=== PATIENT | male | born 1985 | race Caucasian/White ===

== ENCOUNTER 2021-02-06 04:20 | Inpatient (IN) | payer BC ==
[~2021-02-06] VITALS: Ht 172.7 cm; Wt 134.2 kg
[2021-02-06 05:15] LABS: BASOPHILS PERCENT AUTO 0 % (0-2); EOSINOPHILS PERCENT AUTO 0 % (0-6); Hematocrit 41.9 % (37.0-53.0); Hemoglobin 14.4 g/dL (13.5-17.5); IMMATURE GRAN ABSOLUTE AUTO 0.02 K/mm3 (0.00-0.10); IMMATURE GRAN PERCENT AUTO 0 % (0-1); LYMPHOCYTES ABSOLUTE AUTO 0.66 K/mm3 (0.84-5.20); LYMPHOCYTES PERCENT AUTO 11 % (21-46); MONOCYTES PERCENT AUTO 7 % (4-13); Mean Corpuscular HGB 30.9 pg (26.0-34.0); Mean Corpuscular HGB Conc 34.4 g/dL (31.5-36.5); Mean Corpuscular Volume 90 fL (80-100); Mean Platelet Volume 9.2 fL (9.1-12.4); NEUTROPHILS ABSOLUTE AUTO 4.84 K/mm3 (1.96-9.15); NEUTROPHILS PERCENT AUTO 82 % (41-73); Platelet Count 209 K/mm3 (150-400); RDW Coefficient Variation 12.9 % (11.7-14.2); RDW Standard Deviation 42.6 fL (35.1-46.3); Red Blood Cell Count 4.66 M/mm3 (4.30-5.90); White Blood Cell Count 5.92 K/mm3 (4.00-11.30)
[2021-02-06] MEDS ORDERED: Ventolin/Prove6.7 GM INH (05:17)
[2021-02-06] MEDS ORDERED: Ventolin/Prove6.7 GM (05:17)
[2021-02-06] MEDS ORDERED: AZIT250 PO (05:19)
[2021-02-06] MEDS ORDERED: IVERMECTIN3 MG PO (05:19)
[2021-02-06] MEDS ORDERED: SYMBICORT 16010.2 GM INH (05:19)
[2021-02-06 05:32] LABS: Alanine Aminotransfer (ALT/SGP 80 U/L (12-78); Albumin, Blood 3.6 g/dL (3.4-5.0); Albumin/Globulin Ratio 0.8 (0.8-1.8); Alk Phos 61 U/L (50-136); Anion Gap 6 mmol/L (6-16); Aspartate Aminotrans (AST/SGOT 73 U/L (12-37); Bilirubin, Total 0.4 mg/dL (0.1-1.0); Blood Urea Nitrogen 12 mg/dL (8-24); Bun/Creatinine Ratio 19.4 (12.0-20.0); CO2, Blood 27 mmol/L (21-32); Calcium, Blood 8.9 mg/dL (8.5-10.1); Chloride, Blood 105 mmol/L (98-108); Creatinine, Blood 0.62 mg/dL (0.60-1.20); Globulin, Blood 4.6 g/dL (2.2-4.0); Glomerular Filtration Rate >60 (60-); Glucose, Blood 159 mg/dL (70-99); Potassium, Blood 4.1 mmol/L (3.5-5.5); Sodium, Blood 138 mmol/L (136-145); Total Protein, Blood 8.2 g/dL (6.4-8.2)
[2021-02-06 06:25] LABS: SARS-Cov-2 (COVID-19) PCR, MMC POSITIVE (NEGATIVE)
--- NOTE | 2021-02-06 18:28 | NUR ---
PATIENT ALERT AND ORIENTED X4. INTIALLY ON NRB AT 15L SATING LOW 90'S. SWITCHED TO AIRVO AT 50L AND 75% SATING LOW-MID 90'S. DIMINISHED LUNG SOUNDS. OCCASIONAL COUGH. TELE SHOWING SINUS WITH HR 80'S. DENIES CHEST PAIN/PRESSURE. VITAL SIGNS STABLE. BOWEL TONES PRESENT. USING URINAL AT BEDSIDE. DISTENDED ABDOMEN, PATIENT STATES NORMAL. EATING DINNER AT THIS TIME. CALL LIGHT IN REACH. DENIES PAIN. UP IN RECLINER. WILL CONTINUE TO MONITOR AND REPORT OFF.
--- NOTE | 2021-02-07 02:42 | NUR ---
O2 PT REPORTS BEING A MOUTH BREATHER AT REST, DISCUSSED ALTERNATIVE OPTIONS TO FACILITATE THIS WITH RT, PER THEIR SUGGESTION, CHANGED PT FROM AIVO TO NRB WHILE AT REST. PT WENT FROM 82% TO 87/91% ON NRB @ 15L. ENCOURAGE TCDB, ENC REPOSITIONING AND PRONING. WILL CTM.
[2021-02-07 05:33] LABS: BASOPHILS ABSOLUTE AUTO 0.01 K/mm3 (0.00-0.23); BASOPHILS PERCENT AUTO 0 % (0-2); EOSINOPHILS PERCENT AUTO 0 % (0-6); Hematocrit 40.4 % (37.0-53.0); Hemoglobin 13.5 g/dL (13.5-17.5); IMMATURE GRAN ABSOLUTE AUTO 0.09 K/mm3 (0.00-0.10); IMMATURE GRAN PERCENT AUTO 1 % (0-1); LYMPHOCYTES ABSOLUTE AUTO 1.12 K/mm3 (0.84-5.20); LYMPHOCYTES PERCENT AUTO 10 % (21-46); MONOCYTES ABSOLUTE AUTO 0.97 K/mm3 (0.16-1.47); MONOCYTES PERCENT AUTO 9 % (4-13); Mean Corpuscular HGB Conc 33.4 g/dL (31.5-36.5); Mean Corpuscular Volume 93 fL (80-100); Mean Platelet Volume 9.3 fL (9.1-12.4); NEUTROPHILS ABSOLUTE AUTO 9.07 K/mm3 (1.96-9.15); NEUTROPHILS PERCENT AUTO 81 % (41-73); Platelet Count 264 K/mm3 (150-400); Red Blood Cell Count 4.36 M/mm3 (4.30-5.90); White Blood Cell Count 11.26 K/mm3 (4.00-11.30)
[2021-02-07 05:46] LABS: D-Dimer, Quantitative 0.28 mg/L FEU (0.00-0.52); International Normalized Ratio 0.98; Prothrombin Time Results 10.6 Sec (9.7-11.5)
[2021-02-07 06:09] LABS: Alanine Aminotransfer (ALT/SGP 91 U/L (12-78); Albumin, Blood 3.2 g/dL (3.4-5.0); Albumin/Globulin Ratio 0.8 (0.8-1.8); Alk Phos 58 U/L (50-136); Anion Gap 6 mmol/L (6-16); Aspartate Aminotrans (AST/SGOT 96 U/L (12-37); Bilirubin, Total 0.7 mg/dL (0.1-1.0); Blood Urea Nitrogen 19 mg/dL (8-24); Bun/Creatinine Ratio 28.6 (12.0-20.0); CO2, Blood 28 mmol/L (21-32); Calcium, Blood 9.4 mg/dL (8.5-10.1); Chloride, Blood 105 mmol/L (98-108); Creatinine, Blood 0.67 mg/dL (0.60-1.20); Globulin, Blood 4.1 g/dL (2.2-4.0); Glomerular Filtration Rate >60 (60-); Glucose, Blood 119 mg/dL (70-99); Magnesium, Blood 2.4 mg/dL (1.6-2.4); Potassium, Blood 4.1 mmol/L (3.5-5.5); Sodium, Blood 139 mmol/L (136-145); Total Protein, Blood 7.3 g/dL (6.4-8.2)
--- NOTE | 2021-02-07 06:47 | NUR ---
SHIFT SUMMARY S/P COVID PNEUMONIA, A/O X4, VSS THOUGH SATS SLOWLY DECLINING T/O THE SHIFT FROM 89% TO 78% AROUND 0545 THIS MORNING, RT CHANGED PATIENT OVER TO BIPAP AND WE GOT HIM TO PRONE WHICH GOT SATS UP TO 94-96%. 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 PT DROPPED FROM 80% TO 70% WHEN STANDING UP TO VOID, PT EDUCATED AND ENCOURAGE TO STAY IN BED OR CALL FOR ASSISTANCE IF NEEDING TO STAND UP. SATS CAME BACK UP WHEN HE SAT DOWN. CURRENTLY DENIES SOB c BIPAP ON, SOME COARSE CRACKLES ON R SIDE THOUGH PT WAS LYING ON R SIDE MOST OF THE NIGHT UNTIL NOW. NO OTHER EVENTS THIS SHIFT. CALL LIGHT IN REACH, WILL CTM AND REPORT TO DAY RN.
--- NOTE | 2021-02-07 10:17 | NUR ---
PT ALERT AND ORIENTED X4. ON BIPAP THIS AM SETTINGS 12/9 AND 100%. SATING LOW 90'S. RESPIRATORY CARE IN TO SEE PATIENT THIS AM. TRANSFERRED TO AIRVO AT 60L AND 100% FOR 5 MIN WHILE EATING BREAKFAST AND PATIENT DESATED TO LOW 80'S. BACK ON BIPAP AT THIS TIME, UP IN RECLINER. MINIMAL COUGH, NOT PRODUCING MUCH SPUTUM. TELE SHOWING SINUS WITH HR 70-80'S. DENIES CHEST PAIN/PRESSURE. NEURO WNL. BOWEL TONES PRESENT. USING URINAL. NO BOWEL MOVEMENT THIS SHIFT. DENIES OVERALL PAIN. PHYSICAL THERAPY IN TO WORK WITH PATIENT. WILL CONTINUE TO MONITOR.
--- NOTE | 2021-02-07 14:16 | NUR ---
CALL PLACED TO FOR UPDATE. PATIENT NOT TOLERATING BIPAP BREAKS. ABLE TO QUICKLY MOVE MASK TO SIDE AND HAVE PATIENT TAKE SIPS OF WATER. ABLE TO DRINK A ENSURE AND WATER FOR LUNCH. NEW ORDER FOR NS. PATIENT UP IN RECLINER. MOTIVATED TO EXERCISE. WORKED WITH PT ON MOBILITY AND EXERCISES. BIPAP SETTINGS 05/21 AT 100% SATING 90-93%. WILL CONTINUE TO MONITOR.
--- NOTE | 2021-02-07 18:48 | NUR ---
SEE PREVIOUS NOTE. NO ACUTE CHANGES. PATIENT REMAINS ON BIPAP SETTINGS 05/21 AT 100% SATTING 89-94%. ABLE TO TAKE MASK OFF BRIEFLY FOR SIPS OF WATER AND DINNER. DESATED TO 85% WHEN EATING DINNER. FULL LIQUID DIET. PATIENT DOES NOT HAVE MUCH OF APPETITE. ANXIOUS AND NERVOUS ABOUT BEING ON BIPAP. AT HOME ALSO SICK WITH COVID. TELE REMAINS UNCHANGED. NO BOWEL MOVEMENT THIS SHIFT. NS AT 50ML/HR INFUSING AT THIS TIME. CALL LIGHT IN REACH. UP IN RECLINER. STANDING UP AND PREFORMING PHYSICAL THERAPY EXERCISES INTERMITTENTLY. PATIENT EXPRESSES DESIRE TO PRONE/LAY ON SIDE TONIGHT WHILE SLEEPING. WILL REPORT OFF TO ONCOMING RN.
[2021-02-08 05:25] LABS: BASOPHILS ABSOLUTE AUTO 0.05 K/mm3 (0.00-0.23); BASOPHILS PERCENT AUTO 1 % (0-2); EOSINOPHILS PERCENT AUTO 0 % (0-6); Hematocrit 42.4 % (37.0-53.0); Hemoglobin 13.8 g/dL (13.5-17.5); IMMATURE GRAN ABSOLUTE AUTO 0.19 K/mm3 (0.00-0.10); IMMATURE GRAN PERCENT AUTO 2 % (0-1); LYMPHOCYTES ABSOLUTE AUTO 1.22 K/mm3 (0.84-5.20); LYMPHOCYTES PERCENT AUTO 11 % (21-46); MONOCYTES ABSOLUTE AUTO 1.25 K/mm3 (0.16-1.47); MONOCYTES PERCENT AUTO 11 % (4-13); Mean Corpuscular HGB 30.7 pg (26.0-34.0); Mean Corpuscular HGB Conc 32.5 g/dL (31.5-36.5); Mean Corpuscular Volume 94 fL (80-100); Mean Platelet Volume 8.9 fL (9.1-12.4); NEUTROPHILS ABSOLUTE AUTO 8.24 K/mm3 (1.96-9.15); NEUTROPHILS PERCENT AUTO 75 % (41-73); Platelet Count 339 K/mm3 (150-400); RDW Coefficient Variation 13.2 % (11.7-14.2); RDW Standard Deviation 45.6 fL (35.1-46.3); Red Blood Cell Count 4.49 M/mm3 (4.30-5.90); White Blood Cell Count 10.95 K/mm3 (4.00-11.30)
[2021-02-08 05:41] LABS: D-Dimer, Quantitative 0.32 mg/L FEU (0.00-0.52); International Normalized Ratio 1.01; Prothrombin Time Results 10.9 Sec (9.7-11.5)
[2021-02-08 05:52] LABS: Alanine Aminotransfer (ALT/SGP 102 U/L (12-78); Albumin, Blood 3.3 g/dL (3.4-5.0); Albumin/Globulin Ratio 0.8 (0.8-1.8); Alk Phos 65 U/L (50-136); Anion Gap 6 mmol/L (6-16); Aspartate Aminotrans (AST/SGOT 84 U/L (12-37); Bilirubin, Total 0.6 mg/dL (0.1-1.0); Blood Urea Nitrogen 22 mg/dL (8-24); Bun/Creatinine Ratio 36.1 (12.0-20.0); CO2, Blood 27 mmol/L (21-32); Calcium, Blood 8.8 mg/dL (8.5-10.1); Chloride, Blood 105 mmol/L (98-108); Creatinine, Blood 0.61 mg/dL (0.60-1.20); Globulin, Blood 4.4 g/dL (2.2-4.0); Glomerular Filtration Rate >60 (60-); Glucose, Blood 121 mg/dL (70-99); Magnesium, Blood 2.7 mg/dL (1.6-2.4); Potassium, Blood 4.1 mmol/L (3.5-5.5); Sodium, Blood 138 mmol/L (136-145); Total Protein, Blood 7.7 g/dL (6.4-8.2); Troponin I <0.015 ng/mL (0.000-0.040)
--- NOTE | 2021-02-08 06:14 | NUR ---
SHIFT SUMMARY PT IS ALERT AND ORIENTED. VITALS ARE STABLE. ON BIPAP 26/04 FIO2 95-100% WITH SATS BETWEEN 85-91%. PT HAS BEEN PRONING T/O THE NIGHT. DENIES CHEST PAIN. DESATS WITH EXERTION. USING URINAL AT BEDSIDE. IV FLUIDS RUNNING PER EMAR. USING CALL LIGHT APPROPRIETLY. CALL LIGHT IS WITHIN REACH.
--- NOTE | 2021-02-08 11:27 | NUR ---
PT ALERT AND ORIENTED X4. TELE SHOWING SINUS WITH HR 60-70'S. DENIES CHEST PAIN/PRESSURE. VITAL SIGNS STABLE. NO SIGNS OF EDEMA. BOWEL TONES PRESENT. NO BM THIS AM. USING URINAL AT BEDSIDE. DISTENDED ABDOMEN, PER PATIENT NORMAL. LOW APPETITE, TOLERATING FULL LIQUID DIET. DENIES OVERALL PAIN. NEURO WNL, DENIES N/T. 1 PERSON STAND BY ASSIST. ON BIPAP THIS AM WITH SETTING 14/11 AT 95%, SATING 89-95%. TRANSITIONED TO AIRVO 65L AT 100% FOR BREAKFAST THIS AM. SATS RANGED FROM 87-89%. STAYED ON AIRVO FOR ONE HOUR. BIPAP BACK IN PLACE, PATIENT PRONING AT THIS TIME. PATIENT VERY MOTIVATED TO PRONE OR BE UP IN RECLINER THROUGHOUT DAY. LUNG SOUND DIMINISHED. OCCASIONAL COUGH WHEN DEEP BREATHING. PRONING AT THIS TIME. CALL LIGHT IN REACH.
--- NOTE | 2021-02-08 15:02 | NUR ---
PT ON CPAP PRESSURE 14 AT 70%O2. SATING MID 90'S. SITTING UPRIGHT IN RECLINER AT THIS TIME. PATIENT STANDING EVERY SO OFTEN AND PREFORMING PT EXERCISES. VITAL SIGNS STABLE. NO ACUTE CHANGES.
--- NOTE | 2021-02-08 18:34 | NUR ---
SEE PREVIOUS NOTES. PATIENT REMAINS ON CPAP. NO ACUTE CHANGES. SATING HIGH 90'S AT THIS TIME. BOWEL MOVEMENT THIS SHIFT. NO CHANGES IN TELE. UPDATE CALLED TO ANTHONY, PATIENT FATHER. WILL CONTINUE TO MONITOR AND REPORT OFF.
[2021-02-09 05:09] LABS: BASOPHILS ABSOLUTE AUTO 0.06 K/mm3 (0.00-0.23); BASOPHILS PERCENT AUTO 1 % (0-2); EOSINOPHILS PERCENT AUTO 0 % (0-6); Hematocrit 40.6 % (37.0-53.0); Hemoglobin 13.6 g/dL (13.5-17.5); IMMATURE GRAN ABSOLUTE AUTO 0.49 K/mm3 (0.00-0.10); IMMATURE GRAN PERCENT AUTO 4 % (0-1); LYMPHOCYTES ABSOLUTE AUTO 1.63 K/mm3 (0.84-5.20); LYMPHOCYTES PERCENT AUTO 15 % (21-46); MONOCYTES ABSOLUTE AUTO 0.97 K/mm3 (0.16-1.47); MONOCYTES PERCENT AUTO 9 % (4-13); Mean Corpuscular HGB 30.9 pg (26.0-34.0); Mean Corpuscular HGB Conc 33.5 g/dL (31.5-36.5); Mean Corpuscular Volume 92 fL (80-100); Mean Platelet Volume 8.7 fL (9.1-12.4); NEUTROPHILS ABSOLUTE AUTO 8.13 K/mm3 (1.96-9.15); NEUTROPHILS PERCENT AUTO 72 % (41-73); Platelet Count 372 K/mm3 (150-400); RDW Coefficient Variation 13.2 % (11.7-14.2); RDW Standard Deviation 45.1 fL (35.1-46.3); White Blood Cell Count 11.28 K/mm3 (4.00-11.30)
[2021-02-09 05:45] LABS: Alanine Aminotransfer (ALT/SGP 99 U/L (12-78); Albumin, Blood 3.1 g/dL (3.4-5.0); Albumin/Globulin Ratio 0.8 (0.8-1.8); Alk Phos 64 U/L (50-136); Anion Gap 7 mmol/L (6-16); Aspartate Aminotrans (AST/SGOT 65 U/L (12-37); Bilirubin, Total 0.6 mg/dL (0.1-1.0); Blood Urea Nitrogen 19 mg/dL (8-24); Bun/Creatinine Ratio 32.6 (12.0-20.0); CO2, Blood 26 mmol/L (21-32); Chloride, Blood 105 mmol/L (98-108); Creatinine, Blood 0.58 mg/dL (0.60-1.20); Globulin, Blood 3.9 g/dL (2.2-4.0); Glomerular Filtration Rate >60 (60-); Glucose, Blood 100 mg/dL (70-99); Sodium, Blood 138 mmol/L (136-145)
--- NOTE | 2021-02-09 06:11 | NUR ---
SHIFT SUMMARY PT RESTED THROUGH MOST OF NIGHT. ALERT AND ORIENTED, ABLE TO MAKE NEEDS KNOWN. COOPERATIVE WITH PLAN OF CARE. SATS >90% ON CPAP 14/70%. PRONES OFTEN AND, PRONED OVERNIGHT. TELE RUNNING NSR. NO C/O CHEST PAIN. VOIDING TO URINAL, NO BM. STAND BY ASSIST FROM CHAIR TO BED, PT TRANSFERS WELL. NO C/O PAIN. PT EAGER TO GET BETTER, COMPLIANT WITH PLAN OF CARE. VSS. CALL LIGHT WITHIN REACH, BED IN LOWEST POSITION. WILL CONTINUE TO MONITOR.
--- NOTE | 2021-02-09 08:45 | NUR ---
INITIAL ASSESSMENT: PATIENT IS AWAKE AND OOB TO THE CHAIR. PT IS ALERT AND OX4. DENIES PAIN,N/V, N/T AT THIS TIME. HRR. LS DIM T/O, BIOX 95% WITH THE C-PAP ON 14 MC H20 AND 80% FIO2. RT TO ROOM TO TRIAL PATIENT OFF THE C-PAP. HE WAS PLACED ON 65L HIGH FLOW FIO2 75%, OXYGEN SATURATIONS IN THE LOW 90S. PT IS TOLERATING IT WELL. BT+. PPP. OTHER VSS. AM MEDS GIVEN AT THIS TIME. PT DENIES OTHER NEEDS AT THIS TIME. PT IS EAGER TO LEARN AND PARTICIPATE IN PRONING NEEDED. NO OTHER NEEDS AT THIS TIME. CALL LIGHT IN REACH, WILL CONTINUE TO MONITOR.
--- NOTE | 2021-02-09 11:00 | NUR ---
ASSESSMENT UNCHANGED FROM EARLIER. VSS. DE [place]. PT CONTINUES TO BE OOB TO CHAIR. HE DENIES OTHER NEEDS AT THIS TIME. CALL LIGHT IN REACH. WILL CONTINUE TO MONITOR.
--- NOTE | 2021-02-09 15:50 | NUR ---
Pt was incontinent of small amount of loose brown stool, much to his stated surprise and chagrin. He used the bedside commode afterwards, spo2 dropped to 87% while he was still wearing the CPAP AT 65% during the activity. He needed to sit on the chair for a few minutes to recover his oxygen levels. Noted mottling of his abdomen, arms and legs. Spo2 recovered to 97% and he wanted privacy to change his underwear and put on clean pants. During this activity he sustained spo2 at least 89-91%, still all while wearing the cpap. He was encouraged to take breaks during activity in order to manage his oxygen levels at least at 90%.
--- NOTE | 2021-02-09 19:21 | NUR ---
PATIENT HAS DONE WELL THROUGH OUT THE DAY. HE IS A COVID POSITIVE PATIENT THAT WAS INITIALLY ON C-PAP SETTINGS 14 CM H2O WITH 70%FIO2, FIO2 WAS TITRATED DOWN TO 65% PT TOLERATING WELL OXYGEN SATURATIONS CURRENTLY 96%. PT HAS BEEN OOB ALL DAY. PT WAS ABLE TO TAKE BREAKS FROM THE BI-PAP DURING MEALS, HE WAS ON HIGH FLOW 65L FIO2 80%, OXYGEN SATURATIONS 88-94. NO ACUTE CHANGES THIS SHIFT. REPORT GIVEN TO NIXON MORENO RN.
--- NOTE | 2021-02-10 05:08 | NUR ---
shift summary pt rested well through night. alert and oriented, able to make needs known. cooperative with plan of care. sats >90% on cpap pressure setting 14, and 65% fio2. tele nsr at 61. pt anxious some about wanting to get better and do more to improve quicker. needs reassurance. proned all night during sleep. no skin issues. voids to urinal. no bm, needs more po intake probably. no c/o pain. vss. call light within reach, bed in lowest position. will continue to monitor.
--- NOTE | 2021-02-10 18:37 | NUR ---
SHIFT SUMMARY PT ALERT AND ORIENTED. SBA IN ROOM. HR STABLE. BP STABLE. OXYGEN SATURATION MAINTAINED ABOVE 90% ON CPAP AND AIRVO SETTINGS. CPAP AT 14 AND 65% FIO2 AND AIRVO AT 65 L AND 75% FIO2. PT DESATS WITH EXERTION. NO CP OR PRESSURE REPORTED. PT UP IN CHAIR T/O SHIFT SAYS HE WILL PRONE THIS EVENING. WILL CONT TO MONITOR UNTIL REPORT GIVEN TO NIGHTSHIFT RN.
[2021-02-11 05:26] LABS: BASOPHILS ABSOLUTE AUTO 0.09 K/mm3 (0.00-0.23); BASOPHILS PERCENT AUTO 1 % (0-2); EOSINOPHILS ABSOLUTE AUTO 0.05 K/mm3 (0.00-0.68); EOSINOPHILS PERCENT AUTO 0 % (0-6); Hemoglobin 13.8 g/dL (13.5-17.5); IMMATURE GRAN ABSOLUTE AUTO 0.64 K/mm3 (0.00-0.10); IMMATURE GRAN PERCENT AUTO 4 % (0-1); LYMPHOCYTES ABSOLUTE AUTO 1.87 K/mm3 (0.84-5.20); LYMPHOCYTES PERCENT AUTO 13 % (21-46); MONOCYTES ABSOLUTE AUTO 0.71 K/mm3 (0.16-1.47); MONOCYTES PERCENT AUTO 5 % (4-13); Mean Corpuscular HGB Conc 33.7 g/dL (31.5-36.5); Mean Corpuscular Volume 92 fL (80-100); Mean Platelet Volume 8.7 fL (9.1-12.4); NEUTROPHILS ABSOLUTE AUTO 11.56 K/mm3 (1.96-9.15); NEUTROPHILS PERCENT AUTO 78 % (41-73); Platelet Count 459 K/mm3 (150-400); RDW Coefficient Variation 13.1 % (11.7-14.2); RDW Standard Deviation 44.3 fL (35.1-46.3); Red Blood Cell Count 4.45 M/mm3 (4.30-5.90); White Blood Cell Count 14.92 K/mm3 (4.00-11.30)
[2021-02-11 05:49] LABS: Albumin, Blood 2.9 g/dL (3.4-5.0); Anion Gap 6 mmol/L (6-16); Blood Urea Nitrogen 20 mg/dL (8-24); Bun/Creatinine Ratio 30.8 (12.0-20.0); CO2, Blood 28 mmol/L (21-32); Calcium, Blood 8.8 mg/dL (8.5-10.1); Chloride, Blood 102 mmol/L (98-108); Creatinine, Blood 0.65 mg/dL (0.60-1.20); Glomerular Filtration Rate >60 (60-); Glucose, Blood 78 mg/dL (70-99); Phosphorus, Blood 3.2 mg/dL (2.5-4.9); Potassium, Blood 4.1 mmol/L (3.5-5.5); Sodium, Blood 136 mmol/L (136-145)
--- NOTE | 2021-02-11 06:26 | NUR ---
SHIFT SUMMARY NO ACUTE EVENTS THIS SHIFT. PT A+OX4. PT ON CPAP 14 70% FIO2 FOR NIGHT. O2 SATS MAINTAINED OVER 94%. HR NSR 70'S AND BP STABLE. PT SLEPT IN PRONE POSITION. PT COOPERATIVE TO CARE. WILL CONTINUE TO MONITOR UNTIL REPORT GIVEN TO DAYSHIFT RN
--- NOTE | 2021-02-11 10:58 | NUR ---
PT ALERT AND ORIENTED X4. TELE SHOWING SINUS WITH HR 70-80'S. DENIES CHEST PAIN/PRESSURE. VITAL SIGNS STABLE. NO SIGNS OF EDEMA. ON CPAP 14 AT 70%. SATING MID 90'S. ABLE TO TOLERATE AIRVO 65L AT 100% FOR MEALS SATING MID-HIGH 90'S. MINIMAL COUGH. UP IN RECLINER AT THIS TIME. BOWEL TONES PRSENT. USING URINAL/BSC. MOTIVATED TO PRONE AND PREFORM PT EXERCISES. CALL LIGHT IN REACH. DENIES NEEDS AT THIS TIME. DENIES OVERALL PAIN. WILL CONTINUE TO MONITOR.
--- NOTE | 2021-02-11 17:13 | NUR ---
PT CPAP SETTINGS 12 AND 65%. SATING LOW 90'S. WILL CONTINUE TO MONITOR.
--- NOTE | 2021-02-11 17:47 | NUR ---
SHIFT SUMMARY: PATIENT EATING DINNER AT THIS TIME. ON HF 65L AT 100% TO MAINTAIN SATS WHILE EATING. CPAP SETTINGS 12 AND 65%. WEARING CPAP WHEN NOT EATING. SITTING IN RECLINER OR PRONING IN BED. VERY MOTIVATED. CALL PLACED TO FOR UPDATE. VITAL SIGNS REMAIN STABLE. DENIES NEEDS/PAINS AT THIS TIME. WILL CONTINUE TO MONITOR AND REPORT OFF.
--- NOTE | 2021-02-11 20:17 | NUR ---
RECEIVED REPORT AND ASSUMED CARE OF PT. HE IS SITTING UP TO THE CHAIR, HIFLO @ 65L AND 95%, MAINTAINING SATS ABOVE 90%. HE DENIES ANY NEEDS AT THIS TIME. WCTM.
--- NOTE | 2021-02-12 05:05 | NUR ---
SHIFT SUMMARY: [place] IS A&OX4. VSS, NO ACUTE EVENTS OVERNIGHT. HE IS MAINTAINING O2 SATS ON CPAP @ 12 L @ 65% OR HIFLOW @ 65 L @ 95%. HE IS TOLERATING PO INTAKE WELL, SITTING UP AT THE CHAIR WHEN NOT PRONING IN BED, AND ABLE TO MAKE HIS NEEDS KNOWN. HE IS LYING IN BED WITH THE CALL LIGHT IN REACH. WILL REPORT TO DAY SHIFT RN.
[2021-02-12 06:46] LABS: BASOPHILS ABSOLUTE AUTO 0.09 K/mm3 (0.00-0.23); BASOPHILS PERCENT AUTO 1 % (0-2); EOSINOPHILS ABSOLUTE AUTO 0.17 K/mm3 (0.00-0.68); EOSINOPHILS PERCENT AUTO 1 % (0-6); Hematocrit 41.2 % (37.0-53.0); Hemoglobin 13.9 g/dL (13.5-17.5); IMMATURE GRAN ABSOLUTE AUTO 0.83 K/mm3 (0.00-0.10); IMMATURE GRAN PERCENT AUTO 4 % (0-1); LYMPHOCYTES ABSOLUTE AUTO 1.75 K/mm3 (0.84-5.20); LYMPHOCYTES PERCENT AUTO 9 % (21-46); MONOCYTES ABSOLUTE AUTO 0.52 K/mm3 (0.16-1.47); MONOCYTES PERCENT AUTO 3 % (4-13); Mean Corpuscular HGB 30.8 pg (26.0-34.0); Mean Corpuscular HGB Conc 33.7 g/dL (31.5-36.5); Mean Corpuscular Volume 91 fL (80-100); Mean Platelet Volume 8.5 fL (9.1-12.4); NEUTROPHILS PERCENT AUTO 83 % (41-73); Platelet Count 470 K/mm3 (150-400); RDW Standard Deviation 43.3 fL (35.1-46.3); Red Blood Cell Count 4.51 M/mm3 (4.30-5.90); White Blood Cell Count 19.66 K/mm3 (4.00-11.30)
[2021-02-12 07:06] LABS: Albumin, Blood 2.9 g/dL (3.4-5.0); Anion Gap 6 mmol/L (6-16); Blood Urea Nitrogen 18 mg/dL (8-24); Bun/Creatinine Ratio 24.9 (12.0-20.0); CO2, Blood 31 mmol/L (21-32); Calcium, Blood 9.5 mg/dL (8.5-10.1); Chloride, Blood 100 mmol/L (98-108); Creatinine, Blood 0.72 mg/dL (0.60-1.20); Glomerular Filtration Rate >60 (60-); Glucose, Blood 85 mg/dL (70-99); Potassium, Blood 3.9 mmol/L (3.5-5.5); Sodium, Blood 137 mmol/L (136-145)
--- NOTE | 2021-02-12 10:14 | NUR ---
PT ALERT AND ORIENTED X4. TELE SHOWING SINUS WITH HR 80-90'S. DENIES CHEST PAIN/PRESSURE. NO SIGNS OF EDEMA. ONE EPISODE THIS AM WHERE HR SPIKED AT 155 WHILE PATIENT STRUGGLING TO USE URINAL. NORMALIZED IN 1-2 MIN. ON CPAP THIS AM AT 12 AND 95%. ABLE TO TRANSFER TO HIGH FLOW MT FOR BREAKFAST AT 65L AND 95%. SATING LOW 90'S. COUGHING UP CLEAR/YELLOW TINGED SPUTUM. LUNGS SOUNDING DIMINISHED. BOWEL TONES PRESENT. USING URINAL AT BEDSIDE AND BSC. MODERATE INTAKE. PPP. UP IN RECLINER, OR PRONING. VERY MOTIVATED. CALL LIGHT IN REACH. WILL CONTINUE TO MONITOR.
--- NOTE | 2021-02-12 12:45 | NUR ---
CPAP TITRATED DOWN TO 12 AND 70%. SATING 90-92%. PATIENT SATING BETTER WHEN UPRIGHT AT 90 DEGREES IN RECLINER OR PRONING IN BED.
--- NOTE | 2021-02-12 17:18 | NUR ---
SHIFT SUMMARY: NO ACUTE CHANGES. PATIENT VITALS REMAIN STABLE. TELE REMAINS UNCHANGED. ON CPAP AT 12 AND 65%. SATING MID 90'S. TRANSITIONING TO HIGH FLOW AT 65L AND 95% WHEN EATING. CT SCAN TODAY, NEG FOR PE. ANTIBIOTICS INFUSED. USING URINAL AT BEDSIDE. ABLE TO EXPRESS NEEDS. MOTIVATED TO PARTICIPATE IN PRONING. WILL CONTINUE TO MONITOR AND REPORT OFF TO ONCOMING RN. CALL PLACED TO UPDATE IGNACIO.
--- NOTE | 2021-02-13 03:23 | NUR ---
PATIENT IS ALERT AND ORIENTATED, SAT UP IN RECLINER WATCHING TELEVISION WITH AIRVO ON UNTIL AROUND MIDNIGHT, PATIENT PUT ON BIPAP AND STARTED PRONING, HIS SATURATIONS HAVE REMAINED OVER 90%. WILL CONTINUE TO MONITOR.
[2021-02-13 04:51] LABS: BASOPHILS ABSOLUTE AUTO 0.06 K/mm3 (0.00-0.23); BASOPHILS PERCENT AUTO 0 % (0-2); EOSINOPHILS ABSOLUTE AUTO 0.16 K/mm3 (0.00-0.68); EOSINOPHILS PERCENT AUTO 1 % (0-6); Hematocrit 37.2 % (37.0-53.0); Hemoglobin 12.7 g/dL (13.5-17.5); IMMATURE GRAN ABSOLUTE AUTO 0.54 K/mm3 (0.00-0.10); IMMATURE GRAN PERCENT AUTO 3 % (0-1); LYMPHOCYTES ABSOLUTE AUTO 1.33 K/mm3 (0.84-5.20); LYMPHOCYTES PERCENT AUTO 7 % (21-46); MONOCYTES ABSOLUTE AUTO 0.51 K/mm3 (0.16-1.47); MONOCYTES PERCENT AUTO 3 % (4-13); Mean Corpuscular HGB 30.8 pg (26.0-34.0); Mean Corpuscular HGB Conc 34.1 g/dL (31.5-36.5); Mean Corpuscular Volume 90 fL (80-100); Mean Platelet Volume 8.7 fL (9.1-12.4); NEUTROPHILS PERCENT AUTO 86 % (41-73); Platelet Count 429 K/mm3 (150-400); Red Blood Cell Count 4.13 M/mm3 (4.30-5.90)
[2021-02-13 05:08] LABS: Albumin, Blood 2.5 g/dL (3.4-5.0); Anion Gap 6 mmol/L (6-16); Blood Urea Nitrogen 17 mg/dL (8-24); Bun/Creatinine Ratio 26.8 (12.0-20.0); CO2, Blood 28 mmol/L (21-32); Calcium, Blood 9.5 mg/dL (8.5-10.1); Chloride, Blood 101 mmol/L (98-108); Creatinine, Blood 0.63 mg/dL (0.60-1.20); Glomerular Filtration Rate >60 (60-); Glucose, Blood 102 mg/dL (70-99); Phosphorus, Blood 3.1 mg/dL (2.5-4.9); Potassium, Blood 4.3 mmol/L (3.5-5.5); Sodium, Blood 135 mmol/L (136-145)
--- NOTE | 2021-02-13 08:29 | NUR ---
[place] of Care Pt is a/o x 4 and up in the recliner. He is pleasant and cooperative with his care. He is using the urinal at the bedside. He is on CPAP at HS and is being switched over to the AIRVO now by RT so he can eat breakfast. His o2 sat is 90%. He is SBA for transfers but does need line management. He has his call light and is able to make his needs known.
--- NOTE | 2021-02-13 17:09 | NUR ---
Shift Summary Pt is a/o x 4 and has had no complaints. He has been up to the recliner all day and reports that he will prone while he sleeps tonight. He did have an episode where he desaturated when he got up to use the bedside commode but the was a kink in his AIRVO line and once that was resolved he was able to recover. He is currently @ 90% on 65 LPM on the AIRVO. He was able to have a BM today and he said he felt much better as it had been a couple of days. He has a fair appetite but reports that the food is not good. The pt is determined to get better and improve his oxygen needs and has a very positive demeanor. He is able to make his needs known and calls for help when needed.
[2021-02-14 04:45] LABS: BASOPHILS ABSOLUTE AUTO 0.06 K/mm3 (0.00-0.23); BASOPHILS PERCENT AUTO 0 % (0-2); EOSINOPHILS ABSOLUTE AUTO 0.15 K/mm3 (0.00-0.68); EOSINOPHILS PERCENT AUTO 1 % (0-6); Hematocrit 38.3 % (37.0-53.0); IMMATURE GRAN ABSOLUTE AUTO 0.53 K/mm3 (0.00-0.10); IMMATURE GRAN PERCENT AUTO 3 % (0-1); LYMPHOCYTES ABSOLUTE AUTO 1.36 K/mm3 (0.84-5.20); LYMPHOCYTES PERCENT AUTO 7 % (21-46); MONOCYTES ABSOLUTE AUTO 0.68 K/mm3 (0.16-1.47); MONOCYTES PERCENT AUTO 4 % (4-13); Mean Corpuscular HGB 31.2 pg (26.0-34.0); Mean Corpuscular HGB Conc 33.9 g/dL (31.5-36.5); Mean Corpuscular Volume 92 fL (80-100); Mean Platelet Volume 8.8 fL (9.1-12.4); NEUTROPHILS ABSOLUTE AUTO 16.67 K/mm3 (1.96-9.15); NEUTROPHILS PERCENT AUTO 86 % (41-73); Platelet Count 375 K/mm3 (150-400); RDW Coefficient Variation 12.9 % (11.7-14.2); Red Blood Cell Count 4.17 M/mm3 (4.30-5.90); White Blood Cell Count 19.45 K/mm3 (4.00-11.30)
[2021-02-14 05:10] LABS: Albumin, Blood 2.5 g/dL (3.4-5.0); Anion Gap 5 mmol/L (6-16); Blood Urea Nitrogen 16 mg/dL (8-24); Bun/Creatinine Ratio 25.5 (12.0-20.0); CO2, Blood 29 mmol/L (21-32); Calcium, Blood 9.3 mg/dL (8.5-10.1); Chloride, Blood 100 mmol/L (98-108); Creatinine, Blood 0.63 mg/dL (0.60-1.20); Glomerular Filtration Rate >60 (60-); Glucose, Blood 93 mg/dL (70-99); Phosphorus, Blood 3.5 mg/dL (2.5-4.9); Potassium, Blood 4.6 mmol/L (3.5-5.5); Sodium, Blood 134 mmol/L (136-145)
--- NOTE | 2021-02-14 06:48 | NUR ---
PATIENT IS ALERT AND ORIENTATED, UP IN CHAIR TIL AROUND MIDNIGHT TONIGHT, RECEIVED ROBUTUSSIN X 1 FOR COUGH AND CONGESTION. RECEIVED TESSOLON PERILS X 1 BEFORE BEDTIME, SATURATIONS ON HIFLOW 65L/100% FIO2 REMAINED 88-89%, PATIENT STARTED PRONING AROUND MIDNIGHT CPAP 12/FIO2 100% SATURATIONS AROUND 92%, LUNG SOUNDS IMPROVED WITH VESICULAR SOUNDS THROUGOUT LUNG DODD . PATIENT C/O OF DRY NASAL CAVATIES AND IRRITATION. PATIENT HAD AN INCONTINENT EPIDSODE USING THE URINAL LAST NIGHT R/T DESATURATION 85% TOOK OVER 8 MINUTES TO RECOVER AND HAD TO BE PUT BACK INTO A PRONE POSITION TO HAVE RECOVERY PROCESS IMPROVE.
--- NOTE | 2021-02-14 09:30 | NUR ---
[place] of Care Pt is a/o x 4 and is a bit anxious this morning about his increased o2 needs over night. This morning he was up in the recliner chair and assisted to switch over to the AIRVO from the BIPAP and he did need more time to recover this morning compared to yesterday but he eventually did. He is also reporting a tight muscle in between his shoulder blades and Dr Garibay was notified and gave orders for Tramadol. Morning care was done with the pt and he blew his nose and quite a bit of dried mucous came out and he reported being able to breathe much better after clearing his nose and washing his face. He is currently at 89% on the AIRVO and has no signs of resp distress. He is able to make his needs known and calls for help when needed.
--- NOTE | 2021-02-14 16:03 | NUR ---
Shift Summary Pt os a/o x 4. This morning the pt was up to the recliner for breakfast but was not having a good appeteite and was having some anxiety about attempting to eat. A new tray was ordered for him based on his likes and he was able to eat. His sats were sitting in the mid 80's while eating but he just wasnt doing as well as he was yesterday on the AIRVO. After he finished eating the Dr was updated and the RT and this nurse switched the pt back over to the CPAP. During this time the pt also complained of pain to his right shoulder blade. The Dr had been notified and gave an order for Tramadol which was given. The pt reported minimal relief from the pain meds. A theracane was obtained from the nurses station so the pt could try to ease some of the pain in his back. The bck/shoulder pain coupled with his low o2 satuation caused the pt's anxiety to increase and he has started to get down on himself for not being on the AIRVO as long as he was yesterday. This nurse spent an extended amount of time ecouraging the pt to keep his positive outlook and contiue to deep breathe. This afternoon he agreed to prone in the bed and along with RT we have made some adjustments to his CPAP settings and got him a better fitting mask. He is now @ 95% on the cpap @ 100% Fio2. RT is in the room working with him now. This nurse spoke with the pt's at his request and she has been updated. Both the pt and the would like to do everything they can to "stay out of icu and off the vent". Dr Garibay just stopped by to say that she spoke with the wash driller helper about the pt. She gave no new orders but asked that we keep doing what we are doing because the current cpap settings along with the proning are working right now. The pt continues to uses the urinal to void. He is able to make his needs known and calls for help when needed.
--- NOTE | 2021-02-14 19:48 | NUR ---
PATIENT C/O RIGHT SHOULDER POSTERIOR BACK PAIN BETWEEN SHOULDER BLADE, REDNESS NOTED, WARM TO TOUCH RECEIVED N.O. LIDOCAINE PATCH X 2 Q DAY, NOW AND PRN.
--- NOTE | 2021-02-15 01:50 | NUR ---
PATIENT STARTED PRONING THIS EVENING AROUND 2200, PATIENT WAS ABLE TO MAINTAIN SATURATIONS SITTING IN CHAIR 87-89%, ONCE IN PRONE POSITION PATIENT WAS ABLE TO MAINTAIN 93-97% SATURATIONS, PATIENT DESATS SIGNIFICANTLY WHILE STANDING TO URINATE DOWN TO 84-88%, WILL CONTINUE TO MONITOR.
--- NOTE | 2021-02-15 04:49 | NUR ---
PATIENT IS DESATURATING AT 65-74% WHEN STANDING UP TO URINATE, DISCUSSED WITH PATIENT POSSIBILITY OF CONDOM CATH OR SMITH CATETHER TO AVOID ANYMORE DESATURATIONS, PATIENT HAD TO GO INTO A PRONE POSITION TO RECOVER AND TOOK 5 MINUTES, SATURATIONS ARE REMAINING 93-95% CURRENTLY.
[2021-02-15 05:22] LABS: BASOPHILS ABSOLUTE AUTO 0.05 K/mm3 (0.00-0.23); BASOPHILS PERCENT AUTO 0 % (0-2); EOSINOPHILS ABSOLUTE AUTO 0.05 K/mm3 (0.00-0.68); EOSINOPHILS PERCENT AUTO 0 % (0-6); Hematocrit 38.8 % (37.0-53.0); Hemoglobin 12.9 g/dL (13.5-17.5); IMMATURE GRAN ABSOLUTE AUTO 0.38 K/mm3 (0.00-0.10); IMMATURE GRAN PERCENT AUTO 2 % (0-1); LYMPHOCYTES PERCENT AUTO 5 % (21-46); MONOCYTES ABSOLUTE AUTO 0.67 K/mm3 (0.16-1.47); MONOCYTES PERCENT AUTO 3 % (4-13); Mean Corpuscular HGB 30.9 pg (26.0-34.0); Mean Corpuscular HGB Conc 33.2 g/dL (31.5-36.5); Mean Corpuscular Volume 93 fL (80-100); Mean Platelet Volume 9.5 fL (9.1-12.4); NEUTROPHILS ABSOLUTE AUTO 19.63 K/mm3 (1.96-9.15); NEUTROPHILS PERCENT AUTO 90 % (41-73); Platelet Count 326 K/mm3 (150-400); RDW Standard Deviation 43.6 fL (35.1-46.3); Red Blood Cell Count 4.18 M/mm3 (4.30-5.90); White Blood Cell Count 21.78 K/mm3 (4.00-11.30)
[2021-02-15 05:37] LABS: Albumin, Blood 2.3 g/dL (3.4-5.0); Anion Gap 6 mmol/L (6-16); Blood Urea Nitrogen 15 mg/dL (8-24); Bun/Creatinine Ratio 25.6 (12.0-20.0); CO2, Blood 29 mmol/L (21-32); Calcium, Blood 9.3 mg/dL (8.5-10.1); Chloride, Blood 101 mmol/L (98-108); Creatinine, Blood 0.59 mg/dL (0.60-1.20); Glomerular Filtration Rate >60 (60-); Glucose, Blood 94 mg/dL (70-99); Phosphorus, Blood 3.5 mg/dL (2.5-4.9); Sodium, Blood 136 mmol/L (136-145)
--- NOTE | 2021-02-15 09:12 | NUR ---
[place] of Care Pt is awake and a/o x 4. He is still proning and is maintaining his sats in the low 90's. He continues on CPAP @ 100% Fio2. He is very nervous about his dependency on the mask and his voiced his fear about being transferred to icu. He is very willing to put in the work to maintain his o2 sats with the proning and deep breathing. Right now he is still on the CPAP and proned and is @ 96%. His powerglide is patent. He opted out of breakfast this morning to try and maintain his o2. He is able to make his needs known and calls for help when needed.
--- NOTE | 2021-02-15 13:35 | NUR ---
Update Pt trialed being on the AIRVO for breakfast this morning but was not able to keep his sats above 85%. We switched him back over to the CPAP while up in the recliner and he has been doing really well with that and keeping his sats in the 90's. Since he is not taking in very much PO intake Dr Garibay ordered clinimix. He did void in the urinal this morning and did ok with that, per report his sats had dropped last night when he used the urinal. His IV abo have infused as ordered. There is a pending CXR. His has been updated.
--- NOTE | 2021-02-15 15:56 | NUR ---
Shift Summary Pt remains a/o x 4 and is back in the bed proning. Hes maintaining his sats in the low 90's now. Dr ordered clinimix which is running now. He continues to use the urinal when he repositions. His powerglide is patent. His IV ABO have infused as ordered. Oral care and washing his face has been done multiple times today. His has been updated throughout the day. He has his cell phone and call light within reach in the bed and he calls for help when needed.
[2021-02-15 18:02] LABS: Vancomycin, Trough 6.8 ug/mL (5.0-10.0)
--- NOTE | 2021-02-16 00:15 | NUR ---
ABX IV TUBING REPLACE MIDWAY THROUGH VANCO ADMINISTRATION R/T AIR BUBBLE FORMATION. MAXAPINE STARTED LATE DUE TO VANCO TAKING LONGER TO ADMINISTER.
--- NOTE | 2021-02-16 00:16 | NUR ---
PRONE PT AGREEABLE TO PRONE WHEN GOING TO BED, HAS BEEN PRONED SINCE AROUND 2214, SATS BETWEEN 91-96%. PT DOES DROP c ACTIVITY BUT RECOVERS BACK TO BASELINE. WILL CTM
[2021-02-16 04:18] LABS: BASOPHILS ABSOLUTE AUTO 0.05 K/mm3 (0.00-0.23); BASOPHILS PERCENT AUTO 0 % (0-2); EOSINOPHILS ABSOLUTE AUTO 0.04 K/mm3 (0.00-0.68); EOSINOPHILS PERCENT AUTO 0 % (0-6); Hematocrit 39.4 % (37.0-53.0); Hemoglobin 13.2 g/dL (13.5-17.5); IMMATURE GRAN ABSOLUTE AUTO 0.39 K/mm3 (0.00-0.10); IMMATURE GRAN PERCENT AUTO 1 % (0-1); LYMPHOCYTES ABSOLUTE AUTO 1.01 K/mm3 (0.84-5.20); LYMPHOCYTES PERCENT AUTO 3 % (21-46); MONOCYTES ABSOLUTE AUTO 1.02 K/mm3 (0.16-1.47); MONOCYTES PERCENT AUTO 3 % (4-13); Mean Corpuscular HGB 30.7 pg (26.0-34.0); Mean Corpuscular HGB Conc 33.5 g/dL (31.5-36.5); Mean Corpuscular Volume 92 fL (80-100); Mean Platelet Volume 9.3 fL (9.1-12.4); NEUTROPHILS ABSOLUTE AUTO 28.57 K/mm3 (1.96-9.15); NEUTROPHILS PERCENT AUTO 92 % (41-73); Platelet Count 316 K/mm3 (150-400); RDW Coefficient Variation 13.1 % (11.7-14.2); RDW Standard Deviation 43.1 fL (35.1-46.3); White Blood Cell Count 31.08 K/mm3 (4.00-11.30)
[2021-02-16 04:42] LABS: Albumin, Blood 2.3 g/dL (3.4-5.0); Anion Gap 8 mmol/L (6-16); Blood Urea Nitrogen 17 mg/dL (8-24); Bun/Creatinine Ratio 26.9 (12.0-20.0); CO2, Blood 26 mmol/L (21-32); Calcium, Blood 9.7 mg/dL (8.5-10.1); Chloride, Blood 102 mmol/L (98-108); Creatinine, Blood 0.63 mg/dL (0.60-1.20); Glomerular Filtration Rate >60 (60-); Glucose, Blood 97 mg/dL (70-99); Phosphorus, Blood 3.5 mg/dL (2.5-4.9); Potassium, Blood 4.3 mmol/L (3.5-5.5); Sodium, Blood 136 mmol/L (136-145)
--- NOTE | 2021-02-16 06:49 | NUR ---
SHIFT SUMMARY PT WAS PRONE IN BED T/O MOST OF THE SHIFT, SATS DROP QUICKLY c ACTIVITY AND TAKES 2-5 MINUTES TO RECOVER UP TO 90-94%. LUNGS CLEAR BUT DIMINISHED, C/O PAIN IN R FLANK, LIDOCAINE PATCHES APPLIED, PT REPORTS MINOR DECREASE IN PAIN, HEATING PAD APPLIED WELL c SIMILAR EFFECT. PT REPORTS DEEP MASSAGE IN AFFECTED AREA ALSO RELIEVES PAIN, DESCRIBES THE PAIN SHARP. PT CONTINUES TO BE ON CPAP 15 @ 90-100%FIO2 TO KEEP SATS > 90%. 2 INCONTINENT VOIDS, ATTENDS IN PLACE DUE TO EFFECT OF SATS DROPPING WHEN HE STANDS TO VOID. NO OTHER EVENTS THIS SHIFT. CALL LIGHT IN REACH, WILL CTM AND REPORT TO DAY RN.
--- NOTE | 2021-02-16 08:02 | NUR ---
ASSUMED CARE OF PATIENT THIS AM AT APPROX 0700; PT MASK STRAP CAME UNDONE, PT DESATRUATED TO 82%; CPAP MASK BACK IN PLACE; CPAP 15 AT 100%; SPO2 84-89%; RESP RATE 40-50'S; BREATHING LABORED, LS DIM T/O; PT REPORTS RIGHT SIDED BACK PAIN WITH INSPIRATION; LIDOCAINE PATCHES IN PLACE. HR 110-120'S PER TELE FOR APPROX 4 HOURS. PT APPEARS ANXIOUS; NOTIFIED DR CASTELLON, NO NEW ORDERS, WILL CONTINUE TO MONITOR. PT A&Ox4; ANXIOUS. PT PRONED, TURNS SIDE TO SIDE IND WITH INSTRUCTIONS. PT DENIES NAUSEA AND DIZZINESS AT THIS TIME. ENCOURAGED SLOW DEEP BREATHING, PT STATES HE IS UNABLE DUE TO SHARP PAIN. PT RECEIVED STEROIDS AND LOVENOX THIS AM; HELP PO MEDICATIONS DUE TO RESP STATUS. BP STABLE AT THIS TIME. PT DIAPHORETIC. WILL CONTINUE TO MONITOR.
--- NOTE | 2021-02-16 11:00 | NUR ---
TRANSFER DR CASTELLON AT BEDSIDE THIS AM, NEW ORDER FOR FENTANYL ENTERED AND ADMINSITERED. NO OTHER CHANGES FROM PREVIOUS NOTE; PT TRANSFERED TO ROOM PCU5 AT 0957, FOR POSSIBLE INTUBATION. REPORT GIVEN TO FREDY FULTON ASSUMING CARE OF PT.
[2021-02-16 12:21] LABS: Albumin, Blood 2.2 g/dL (3.4-5.0); Albumin/Globulin Ratio 0.4 (0.8-1.8); Bilirubin, Direct 0.4 mg/dL (0.0-0.3); Bilirubin, Indirect 0.6 mg/dL (0.1-0.7); Globulin, Blood 5.3 g/dL (2.2-4.0); Total Protein, Blood 7.5 g/dL (6.4-8.2)
[2021-02-16 14:18] LABS: PO2 Arterial 90.2 mmHg (80-100)
[2021-02-16 14:20] LABS: PCO2 Arterial 77.6 mmHg (35-45); pH Blood Arterial 7.17 (7.35-7.45)
[2021-02-16 15:23] LABS: Source, Urine Catheter
[2021-02-16 15:25] LABS: Appearance, Urine Hazy (Clear); Bilirubin, Urine Neg (Neg); Blood, Urine 2+ (Neg); Color, Urine Yellow (P-Yellow); Glucose Qualitative, Urine Neg (Neg); Ketones, Urine Neg (Neg); Leukocyte Esterase, Urine 1+ (Neg); Nitrite, Urine Neg (Neg); Protein, Urine 3+ (Neg); Urobilinogen, Urine 1+ (Normal)
[2021-02-16 15:36] LABS: Bacteria Many /hpf; Hyaline Casts 0-2 /lpf (0-2); Red Blood Cells, Urine 0-2 /hpf (0-2); Squamous Epithelial Cells Few /hpf (Few)
--- NOTE | 2021-02-16 15:57 | NUR ---
ASSUMED CARE/INTUBATION PT TO PCU 5 ICU STATUS FOR INTUBATION. PT ON BIPAP 16CM H2O AND 100% FIO2 ON TRANSFER, PRONE IN BED. SPO2 LOW 90'S, RR 40'S, HR 120, BP ELEVATED. PT PALE, SKIN DUSKY AND MOTTLED UP TO TOP OF SHOULDERS, FACE CYANOTIC, PT DIFFUSELY DIAPHORETIC. DR. WASSERMAN NOTIFIED, PT ABLE TO SPEAK TO VIA ZOOM VIDEO CONFERENCE PRIOR TO INTUBATION. TEAM AT BEDSIDE, PT SEDATED, INTUBATED, VENT SETTINGS SET BY AND RT. PT PARALYZED AND PRONED, ABG ASSESSED AND ADDITONAL VENT SETTINGS ADJUSTED. 2 ADDITIONAL PERIPHERAL IV'S PLACED, SMITH INSERTED, URINE SENT TO LAB. URINE FOUL AND EXTREMELY CLOUDY. AND FATHER UPDATED. VENT SETTINGS CURRENTLY AC 20, Vt 460, PEEP 20, FIO2 100% SEE FOLLOWING FLOWSHEET FOR INTUBATION SPECIFICS. CURRENT DRIP RATES NIMBEX 2.5MCG, PROPOFOL 50MCG, PRECEDEX 0.7MCG. 1215: 20MG ETOMIDATE IVP, PROPOFOL INFUSION INITIATED AT 30MCG/KG/MIN 1219: 2MG VECURONIUM IVP 1219: BIPAP OFF, BVM VENTILLATION, SPO2 69% 1220: INTUBATED 7.5 ETT, 25CM AT TEETH. POS COLOR CHANGE ON CO2 COLORIMETRIC DEVICE, BREATH SOUNDS POSITIVE IN ALL LOBES, COARSE 1223: 1MG EPINEPHERINE IVP FOR HR 42, HR INCREASED TO 110. VERSED 4MG, PRECEDEX INFUSION OFF 1226: VENT SETTINGS AC 16, Vt 450, PEEP 18, FIO2 100%. SPO2 88%. OGT TUBE INSERTED AFTER PT'S VS STABILIZED, CXR COMPLETED, TUBE PLACEMENT CONFIRMED BY DR. WASSERMAN AT BEDSIDE. SEE ICU FLOW SHEET FOR ADDITIONAL TITRATIONS.
[2021-02-16 16:24] LABS: PO2 Arterial 77.4 mmHg (80-100)
[2021-02-16 16:25] LABS: pH Blood Arterial 7.21 (7.35-7.45)
[2021-02-16 16:26] LABS: PCO2 Arterial 70.6 mmHg (35-45)
[2021-02-16 18:31] LABS: Vancomycin, Trough 34.7 ug/mL (5.0-10.0)
--- NOTE | 2021-02-16 18:33 | NUR ---
ATTEMPT TO TRANSFER DR. WASSERMAN MADE CONTACT WITH [facility] AND [facility] REGARDING ECMO TRANSFER, NO BEDS AVAILABLE BUT PT HAS BEEN PUT ON WAITING LIST. PT'S AWARE.
--- NOTE | 2021-02-16 19:30 | NUR ---
ASSUMED CARE OF PT AT 1900, REPORT RECEIVED FROM KIRSTIN DANIEL. PT INTUBATED AND SEDATED/PARALYZED. VENT SETTINGS AC 20/460/18/100% WITH SPO2 95%. LUNGS CLEAR WITH DIM BASES. HR 70'S SINUS ON MONITOR, SBP 90'S. CURRENTLY INFUSING: NIMBEX @ 2.5 MCG/KG/MIN, PROPOFOL @ 50 MCG/KG/MIN, PRECEDEX @ 0.7 MCG/KG/HR, AND LR @ 100 ML/HR. SMITH DRAINING HAZY YELLOW URINE WITH SEDIMENT. OG TO LIS. PT TO BE UNPRONED THIS SHIFT AROUND 0400. TOF 2/4.
[2021-02-17 01:01] LABS: Vancomycin, Random 12.5 ug/mL
[2021-02-17 05:29] LABS: BASOPHILS ABSOLUTE AUTO 0.05 K/mm3 (0.00-0.23); BASOPHILS PERCENT AUTO 0 % (0-2); EOSINOPHILS ABSOLUTE AUTO 0.01 K/mm3 (0.00-0.68); EOSINOPHILS PERCENT AUTO 0 % (0-6); Hematocrit 36.9 % (37.0-53.0); Hemoglobin 11.8 g/dL (13.5-17.5); IMMATURE GRAN ABSOLUTE AUTO 0.32 K/mm3 (0.00-0.10); IMMATURE GRAN PERCENT AUTO 1 % (0-1); LYMPHOCYTES ABSOLUTE AUTO 0.85 K/mm3 (0.84-5.20); LYMPHOCYTES PERCENT AUTO 3 % (21-46); MONOCYTES ABSOLUTE AUTO 1.21 K/mm3 (0.16-1.47); MONOCYTES PERCENT AUTO 4 % (4-13); Mean Corpuscular HGB 31.1 pg (26.0-34.0); Mean Platelet Volume 9.4 fL (9.1-12.4); NEUTROPHILS ABSOLUTE AUTO 27.14 K/mm3 (1.96-9.15); NEUTROPHILS PERCENT AUTO 92 % (41-73); Platelet Count 268 K/mm3 (150-400); RDW Coefficient Variation 13.2 % (11.7-14.2); RDW Standard Deviation 47.3 fL (35.1-46.3); White Blood Cell Count 29.58 K/mm3 (4.00-11.30)
[2021-02-17 05:54] LABS: Anion Gap 2 mmol/L (6-16); Blood Urea Nitrogen 31 mg/dL (8-24); Bun/Creatinine Ratio 37.1 (12.0-20.0); CO2, Blood 28 mmol/L (21-32); Calcium, Blood 9.3 mg/dL (8.5-10.1); Chloride, Blood 107 mmol/L (98-108); Creatinine, Blood 0.84 mg/dL (0.60-1.20); Glomerular Filtration Rate >60 (60-); Glucose, Blood 133 mg/dL (70-99); Magnesium, Blood 3.1 mg/dL (1.6-2.4); Phosphorus, Blood 4.4 mg/dL (2.5-4.9); Potassium, Blood 5.2 mmol/L (3.5-5.5); Sodium, Blood 137 mmol/L (136-145)
--- NOTE | 2021-02-17 06:24 | NUR ---
SHIFT SUMMARY PT REMAINS INTUBATED, SEDATED AND PARALYZED. INFUSIONS CURRENTLY RUNNING: PROPOFOL @ 40 MCG/KG, PRECEDEX @ 0.7 MCG/KG, NIMBEX @ 2.5 MCG/KG, AND LR @ 100 ML/HR. HR 70'S SINUS ON MONITOR, SBP 115-130'S. PT UNPRONED AT 0430, SATS DROPPED INTO 60'S TAKING PT APPROX 15-20 MINS TO RECOVER BACK TO 88%, CURRENT SPO2 94%. VENT SETTINGS AC 20/460/20/100%, WHILE PRONED RT WAS ABLE TO DECREASE PEEP TO 15 AND FIO2 TO 95% BOTH INCREASED AFTER UNPRONING. SMITH CONTINUES DRAINING HAZY YELLOW/ORANGE URINE WITH SEDIMENT TO GRAVITY.
[2021-02-17 06:28] LABS: Mean Corpuscular Volume 97 fL (80-100)
[2021-02-17 11:26] LABS: PCO2 Arterial 59.9 mmHg (35-45)
--- NOTE | 2021-02-17 13:20 | NUR ---
TRANSFERING CARE NOTE: ASSUMED CARE OF PT AT 0700. RECEVIED REPORT FROM MIKE DANIEL. CONTINUES TO BE SEDATED/PARALYZED AND VENTED. PT SEDATED WITH PROPOFOL, PRECEDEX. NIMBEX BEING USED TO PARALYZE. PT HAS BEEN IN SR WITH HR IN THE THE 90'S. STARTED TF 100ML EVERY FOUR HOURS, NO RESIDUALS TO BE CHECKED PER ORDER. SMITH WAS DC'd IT WAS OCCLUDED WITH SEDIMENT. SMITH REPLACED WITH 18F CATHETER, URINE DRAINING TO GRAVITY, YELLOW HAZY, WITH SEDIMENT NOTED. WILL FLUSH WITH 50ML STERILE WATER EVERY FOUR HOURS OR NEEDED TO PREVENT BLOCKAGE. PT IS IN PRONED POSITION. REPORT GIVEN TO KIRSTIN DANIEL.
[2021-02-17 18:29] LABS: Vancomycin, Trough 15.7 ug/mL (5.0-10.0)
--- NOTE | 2021-02-17 19:13 | NUR ---
END OF SHIFT CARE ASSUMED AT 1300, PT REMAINS PRONED, REPOSITIONED LIMBS AND HEAD EVERY COUPLE HOURS. VENT AC 26, Vt 430, PEEP 20, FIO2 80%, SPO2 94%. PROPOFOL 60MCG, PRECEDEX 0.7MCG, NIMBEX 2.5MCG, TOF 2-3/4. LS DIMINISHED T/O, NO COARSENESS NOTED. HR 70'S SINUS, BP STABLE. NO BM TODAY, GOOD URINE OUTPUT, URINE CLEARING THIS EVENING FROM YESTERDAY. SMITH FLUSHED FOR PATENCY THIS EVENING WITHOUT DIFFICULTY. 1+ PEDAL EDEMA NOTED, EXTREMS COOL TO TOUCH, PT'S FACE REMAINS PALE AND DIAPHORETIC, BUT HAS IMPROVED SINCE YESTERDAY. PT HAD 2 EPISODES OF BRADYCARDIA WITH HR 40'S TODAY, ONCE DURING PRONING AND ONCE DURING ETT SUCTIONING, APPEARS TO BE A VAGAL RESPONS HR INCREASES TO BASELINE WITHOUT INTERVENTION. EPI IN ROOM ON STANDBY. [facility] IN CONTACT WITH STAFF TODAY, AWAITING A BED FOR TRANSFER AT THIS TIME. PT HAS BEEN ACCEPTED FOR TRANSFER BY AND FACILITY. FAMILY UPDATED BY DR. WASSERMAN. REPORT.
--- NOTE | 2021-02-17 19:15 | NUR ---
ASSUMPTION OF CARE PT REMAINS INTUBATED. VENT SETTINGS 26/430/20/80%. OGT IN PLACE. PT RECEIVING NIMBEX 2.5MCG/KG/MIN, PROPOFOL 60MCG/KG/MIN, AND PRECEDEX 0.7MCG/KG/HR. PT REMAINS PRONED AT THIS TIME. ABDOMEN FIRM TO TOUCH, BOWEL TONES HYPOACTIVE. SMITH REMAINS IN PLACE DRAINING YELLOW URINE WITH SEDIMENT. SEE SHIFT ASSESSMENT.
--- NOTE | 2021-02-18 00:42 | NUR ---
TRANSFER REPORT GIVEN TO [facility] SHAMAR BOND RN AT 2305. TRANSFER CREW HERE AT APPROXIMATELY 2315. WHEN TRANSFERRED OVER TO [facility], PT'S HR DROPPED TO 38- BACK TO 7Os WITHIN 1-2 MINUTES. O2 SATS DECREASED TO 39-40 AFTER SWITCHING VENTILATOR TO TRANSPORT VENT. SATS SLOWLY INCREASED BACK TO 84-85% BY THE TIME PATIENT LEFT. DISCUSSED PT'S STATUS WITH RECEIVING DOCTOR. PT LEFT PCU WITH TRANSPORT CREW AT 0042.
--- NOTE | 2021-02-18 13:58 | NUR ---
late entry sent to see pt before intubation. discussed with to confirm after speaking with truck safety inspector. held phone to his ear so could tall him. he was fearful and resisitant but willing to be intubated. updated staff.
== END 2021-02-18 00:42 | disposition short-term general hospital (02) | DRG 208 ==
LOC: ER 04:20 → PCU 07:25 → SURS 07:25 → ERHOLD 07:25 → SURS 12:33 → PCU 02-16 09:57
PROVIDERS: Emergency Medicine; Family Medicine; Internal Medicine Critical Care Medicine; Pharmacist; ADMIT Internal Medicine
PROC: 8E0ZXY6 Isolation (ICD-10-PCS; principal; 2021-02-06)
PROC: 5A1945Z Respiratory Ventilation, 24-96 Consecutive Hours (ICD-10-PCS; 2021-02-06)
PROC: 3E0333Z Introduction of Anti-inflammatory into Peripheral Vein, Percutaneous Approach (ICD-10-PCS; 2021-02-06)
PROC: XW033E5 Introduction of Remdesivir Anti-infective into Peripheral Vein, Percutaneous Approach, New Technology Group 5 (ICD-10-PCS; 2021-02-07)
PROC: 0BH18EZ Insertion of Endotracheal Airway into Trachea, Via Natural or Artificial Opening Endoscopic (ICD-10-PCS; 2021-02-16)
PROC: 5A09557 Assistance with Respiratory Ventilation, Greater than 96 Consecutive Hours, Continuous Positive Airway Pressure (ICD-10-PCS; 2021-02-16)
DX: U07.1 COVID-19 (principal); J96.01 Acute respiratory failure with hypoxia; J12.82 Pneumonia due to coronavirus disease 2019; Z68.42 Body mass index [BMI] 45.0-49.9, adult; E87.2 Acidosis; E46 Unspecified protein-calorie malnutrition; N39.0 Urinary tract infection, site not specified; E66.01 Morbid (severe) obesity due to excess calories; D69.59 Other secondary thrombocytopenia; D64.9 Anemia, unspecified; Z79.51 Long term (current) use of inhaled steroids; Z79.2 Long term (current) use of antibiotics
CPT/HCPCS: 31500; 36415; 36600; 71045; 71260; 76770; 80053; 80069; 80076; 80202; 81001; 82803; 82947; 83735; 83880; 84145; 84484; 85025; 85379; 85610; 86140; 87040; 87070; 87086; 87205; 93005; 93010; 94002; 94003; 94640; 94660; 94664; 94762; 96372-59; 96374; 96375; 97110; 97161; 97530; 99285-25; A9270; C9113; J0456; J0692; J0696; J1100; J1650; J2060; J2250; J2704; J3010; J3370; J7030; J7040; J7050; J7120; Q9967; U0004

== ENCOUNTER 2021-04-18 11:49 | Inpatient (IN) | payer BC ==
[~2021-04-18] VITALS: Ht 175.3 cm; Wt 118.3 kg
[~2021-04-18 11:49] MED LIST: AZIT250 PO; IVERMECTIN3 MG PO; SYMBICORT 16010.2 GM INH; Ventolin/Prove6.7 GM; Ventolin/Prove6.7 GM INH
[2021-04-18] MEDS ORDERED: ELIQUIS5 M2 PO (12:29)
[2021-04-18] MEDS ORDERED: B COMPLEX FORM0.4 MG PT (12:34)
[2021-04-18] MEDS ORDERED: PERIDEX15 ML PO (12:35)
[2021-04-18] MEDS ORDERED: [UNRECOGNIZED DRUG - CODE] SC (12:37)
[2021-04-18] MEDS ORDERED: GABAPENTIN250 MG/51 PT (12:38)
[2021-04-18] MEDS ORDERED: MELA3 PT (12:47)
[2021-04-18] MEDS ORDERED: MIRALAX17 G3 PT (12:49)
[2021-04-18] MEDS ORDERED: QUETIAPINE FUMA50 M2 PT (12:51)
[2021-04-18] MEDS ORDERED: DOCUZEN 8.6-501 EACH PT (12:53)
[2021-04-18] MEDS ORDERED: SEVELAMER CARB PT (12:55)
[2021-04-18] MEDS ORDERED: ACETAMINOPHEN500 M2 PT (12:56)
[2021-04-18] MEDS ORDERED: ALBU2.5V5 INH (12:57)
[2021-04-18] MEDS ORDERED: ALPR.5 PO (12:58)
[2021-04-18] MEDS ORDERED: ATROPINE IV (13:00)
[2021-04-18] MEDS ORDERED: BISA10S PR (13:01)
[2021-04-18] MEDS ORDERED: MENTHOL-ZINC OXIDE TOP (13:05)
[2021-04-18] MEDS ORDERED: Q-Tussin100 MG/5 M PO (13:06)
[2021-04-18] MEDS ORDERED: HYDRALAZINE IV (13:11)
[2021-04-18] MEDS ORDERED: LIDOCAINE 4% TOP (13:12)
[2021-04-18] MEDS ORDERED: ZOFRAN IV (13:15)
[2021-04-18] MEDS ORDERED: OXYC5 PT (13:16)
[2021-04-18] MEDS ORDERED: GENTEAL TEARS3.5 GM BOTHEYES (13:19)
[2021-04-18] MEDS ORDERED: ZINC OXIDE57 GM TOP (13:22)
[2021-04-18 13:40] LABS: BASOPHILS ABSOLUTE AUTO 0.13 K/mm3 (0.00-0.23); BASOPHILS PERCENT AUTO 1 % (0-2); EOSINOPHILS ABSOLUTE AUTO 0.62 K/mm3 (0.00-0.68); EOSINOPHILS PERCENT AUTO 3 % (0-6); Hematocrit 29.7 % (37.0-53.0); IMMATURE GRAN ABSOLUTE AUTO 0.27 K/mm3 (0.00-0.10); IMMATURE GRAN PERCENT AUTO 1 % (0-1); LYMPHOCYTES ABSOLUTE AUTO 1.45 K/mm3 (0.84-5.20); LYMPHOCYTES PERCENT AUTO 7 % (21-46); MONOCYTES ABSOLUTE AUTO 1.35 K/mm3 (0.16-1.47); MONOCYTES PERCENT AUTO 6 % (4-13); Mean Corpuscular HGB 26.8 pg (26.0-34.0); Mean Corpuscular HGB Conc 30.3 g/dL (31.5-36.5); Mean Corpuscular Volume 88 fL (80-100); Mean Platelet Volume 8.5 fL (9.1-12.4); NEUTROPHILS ABSOLUTE AUTO 17.72 K/mm3 (1.96-9.15); NEUTROPHILS PERCENT AUTO 82 % (41-73); Platelet Count 626 K/mm3 (150-400); RDW Coefficient Variation 16.9 % (11.7-14.2); RDW Standard Deviation 54.3 fL (35.1-46.3); Red Blood Cell Count 3.36 M/mm3 (4.30-5.90); White Blood Cell Count 21.54 K/mm3 (4.00-11.30)
[2021-04-18 13:51] LABS: Albumin, Blood 2.7 g/dL (3.4-5.0); Albumin/Globulin Ratio 0.4 (0.8-1.8); Bilirubin, Total 0.3 mg/dL (0.1-1.0); Bun/Creatinine Ratio 24.6 (12.0-20.0); Calcium, Blood 9.9 mg/dL (8.5-10.1); Creatinine, Blood 4.84 mg/dL (0.60-1.20); Globulin, Blood 6.9 g/dL (2.2-4.0); Potassium, Blood 4.7 mmol/L (3.5-5.5); Total Protein, Blood 9.6 g/dL (6.4-8.2)
--- NOTE | 2021-04-18 18:36 | NUR ---
PATIENT ARRIVED FROM [facility] VIA DIRECT TRANSFER. USED LIFT TO MOVE OVER TO BED. ALERT AND ORIENTED X4. ABLE TO MOVE ALL EXTREMITIES. Q2 TURNING. PATIENT UNABLE TO DORSIFLEX LEFT FOOT. STATES HE HAS "COVID FOOT" AND FEELS LIKE IT IS IN "SNOW". IN BOOT AT THIS TIME. OVERALL WEAKNESS BUT BILATERAL PHOTO TECHNOLOGIST STRENGTH. TELE SHOWING SINUS TACH WITH HR 100-110'S. DENIES CHEST PAIN/PRESSURE. VITAL SIGNS STABLE. LUNGS SOUNDING CLEAR. ON 6L AND 40% FIO2 VIA TRACH COLLAR. TRACH SIZE 6 AND ADDITIONAL AT BEDSIDE. PREMISSIVE VALVE IN PLACE ALLOWING PATIENT TO SPEAK. PATIENT STATES IT WILL NEED TO BE REMOVED FOR BEDTIME. RIGHT CHEST WALL PERMANENT DIALYSIS CATH IN PLACE. DIALYSIS THIS EVENING. KENYA IN PLACE MARKED AT 78 UPON ARRIVAL. NEPRO TUBE FEEDING GOING AT 50ML/HR AT THIS TIME WITH WATER FLUSHES Q4. USING DOBHOFF TO ADMINISTER MEDICATIONS. SUCTIONING PRN, PATIENT ABLE TO COUGH UP SPUTUM. REDNESS ON COCCYX AND BARRIER CREAM/MEPILEX IN PLACE. PICTURES IN CHART. NPO AT THIS TIME EXCEPT ABLE TO HAVE 3-5 ICE CHIPS EVERY HOUR WITH ONE TO ONE SUPERVISION AND ORAL CARE BEFORE. Q4 ORAL CARE. DAD AT BEDSIDE. RECORDS FROM [facility] IN CHART. PLAN FOR RENAL ULTRASOUND IN AM. 24 HOUR URINE COLLECTION IN PROGRESS. PICC LINE TO RIGHT UPPER ARM. CALL LIGHT IN REACH. WILL CONTINUE TO MONITOR AND REPORT OFF TO ONCOMING RN.
[2021-04-19 04:47] LABS: BASOPHILS ABSOLUTE AUTO 0.14 K/mm3 (0.00-0.23); BASOPHILS PERCENT AUTO 1 % (0-2); EOSINOPHILS ABSOLUTE AUTO 0.55 K/mm3 (0.00-0.68); EOSINOPHILS PERCENT AUTO 3 % (0-6); Hemoglobin 8.4 g/dL (13.5-17.5); IMMATURE GRAN ABSOLUTE AUTO 0.29 K/mm3 (0.00-0.10); IMMATURE GRAN PERCENT AUTO 1 % (0-1); LYMPHOCYTES ABSOLUTE AUTO 1.73 K/mm3 (0.84-5.20); LYMPHOCYTES PERCENT AUTO 8 % (21-46); MONOCYTES ABSOLUTE AUTO 1.73 K/mm3 (0.16-1.47); MONOCYTES PERCENT AUTO 8 % (4-13); Mean Corpuscular HGB 27.1 pg (26.0-34.0); Mean Corpuscular Volume 90 fL (80-100); Mean Platelet Volume 8.6 fL (9.1-12.4); NEUTROPHILS ABSOLUTE AUTO 17.31 K/mm3 (1.96-9.15); NEUTROPHILS PERCENT AUTO 80 % (41-73); Platelet Count 641 K/mm3 (150-400); RDW Coefficient Variation 16.8 % (11.7-14.2); RDW Standard Deviation 54.7 fL (35.1-46.3); White Blood Cell Count 21.75 K/mm3 (4.00-11.30)
[2021-04-19 05:14] LABS: Albumin, Blood 2.7 g/dL (3.4-5.0); Anion Gap 8 mmol/L (6-16); Blood Urea Nitrogen 74 mg/dL (8-24); Bun/Creatinine Ratio 19.8 (12.0-20.0); CO2, Blood 30 mmol/L (21-32); CPK Creatine Kinase 22 U/L (39-308); Calcium, Blood 10.2 mg/dL (8.5-10.1); Chloride, Blood 93 mmol/L (98-108); Creatinine, Blood 3.73 mg/dL (0.60-1.20); Glomerular Filtration Rate 18 (60-); Glucose, Blood 117 mg/dL (70-99); Magnesium, Blood 2.9 mg/dL (1.6-2.4); Potassium, Blood 3.9 mmol/L (3.5-5.5); Sodium, Blood 131 mmol/L (136-145); Uric Acid, Blood 5.3 mg/dL (3.5-7.2)
--- NOTE | 2021-04-19 06:27 | NUR ---
SHIFT SUMMARY PATIENT IS RESTING IN BED COMFORTABLY. CALL LIGHT IS IN REACH. VITALS WERE STABLE DURING THE NIGHT. NO ACUTE CHANGES DURING THE NIGHT. THE PATIENT IS ABLE TO HAVE 3-5 ICE CHIPS WITH SUPERVISON AND WOULD REQUEST FOR IT. TURNED THE PATIENT NEEDED HE IS ABLE TO MINIMALLY MOVE AROUND IN BED. THE PATIENT DID NOT COMPLAIN OF ANY PAIN HE DID COMPLAIN OF DISCOMFORT WHICH GOT BETTER WITH REPOSITIONING. THE PATIENT HAS A CONDOM CATHETER ON AND WAS NEEDED TO BE CHANGED 3 TIMES DURING THE NIGHT AND HE ALSO HAD ACCIDENTS. HE IS CURRENTLY ON A 24 HR URINE COLLECTION. THE PATIENT HAD JUST COMPLETED HEMODIALYSIS AT THE START OF SHIFT AND 2.6L WAS TAKEN OFF. HEMODIALYSIS RIJ IS C/D/I. THE PATIENT IS ON 6L AND 405 FIO2 VIA TRACH COLLAR AND SATURATING IN THE MID 90%. THE TRACH WAS CAPPED AT START OF SHIFT AND TAKEN OFF AT AROUND 2300. THE PATIENT WAS SINUS TACHY AT 120-130 DURING THE NIGHT. WILL CONTINUE TO MONITOR. REPORT WILL BE GIVEN TO DAY SHIFT RN.
[2021-04-19 10:07] LABS: HBSAG SCREEN Negative (Negative); HEP A AB, IGM Negative (Negative); HEP B CORE AB, IGM Negative (Negative); HEP C VIRUS AB 0.2 (0.0-0.9)
[2021-04-19 16:18] LABS: Protein, Urine Quantitative 1292.3 mg/dL (0.0-11.9)
--- NOTE | 2021-04-19 17:50 | NUR ---
SHIFT SUMMARY NO ACUTE EVENTS THIS SHIFT, VSS. PT ALERT AND ORIENTED, ANXIOUS AT TIMES BUT COOPERATIVE WITH CARE. PT UP IN RECLINER VIA LIFT, FAIR TOLERATION. PT COMPLAINED OF PAIN IN COCCYX THROUGH SECOND HALF OF SHIFT, ASSISTED WITH REPOSITIONING FREQUENTLY. TYLENOL GIVEN PER EMAR. PT FATHER WAS AT BEDSIDE IN AFTERNOON, ALL QUESTIONS ANSWERED TO SATISFACTION. PT WORKED WITH PHYSICAL THERAPY. DOBHOFF IN PLACE, TF RUNNING AT GOAL RATE WITH FLUSHES PER ORDERS. REPLACED MEPILEX ON COCCYX THIS SHIFT. PT PROVIDED 3-5 ICE CHIPS WITH SUPERVISION. CONDOM CATH IN PLACE, DRAINING TO GRAVITY. 24-HR URINE COLLECTION COMPLETED AND SENT TO LAB. CONTINUES TO RECIEVE O2 VIA TRACH COLLAR, 40% FIO2. HEART RATE ELEVATED TO SINUS TACH 110s-120s WITH ACTIVITY. AT REST NSR.
[2021-04-20 05:20] LABS: Hematocrit 29.5 % (37.0-53.0)
[2021-04-20 05:41] LABS: Albumin, Blood 2.7 g/dL (3.4-5.0); Anion Gap 11 mmol/L (6-16); Blood Urea Nitrogen 104 mg/dL (8-24); Bun/Creatinine Ratio 21.7 (12.0-20.0); CO2, Blood 28 mmol/L (21-32); Chloride, Blood 91 mmol/L (98-108); Glomerular Filtration Rate 14 (60-); Glucose, Blood 116 mg/dL (70-99); Magnesium, Blood 3.3 mg/dL (1.6-2.4); Phosphorus, Blood 6.3 mg/dL (2.5-4.9); Potassium, Blood 4.1 mmol/L (3.5-5.5); Sodium, Blood 130 mmol/L (136-145)
--- NOTE | 2021-04-20 06:27 | NUR ---
SHIFT SUMMARY PATIENT IS RESTING IN BED COMFORTABLY. BED IS IN LOW POSITION. CALL LIGHT IS IN REACH. VITALS WERE STABLE. THE PATIENT DID WELL DURING THE NIGHT AND HE WAS ABLE TO GET SOME SLEEP. THE PATIENT WAS REPOSITIONED NEEDED HE WAS OFFERED BUT REFUSED OR REQUESTED TO SLEEP. NO COMPLAINTS OF PAIN BUT DISCOMFORT IN HIS LEFT FOOT OFFERED TO PUT HIS BOOT ON BUT HE REFUSED. TRACH COLLAR IS IN PLACE AT 6L WITH 40% FIO2 SATURATING IN THE MID TO HIHG 90%. TRACH WAS UNCAPPED LAST NIGHT PER PATIENT'S REQUEST. DOBHOFF STILL IN PLACE WITH NEPRO RUNNING CONTINUOSLY AT 50 ML/HR WITH FREE WATER AT 30ML/4HR. PATIENT DID WELL WITH 5 ICE CHIPS WITH 1:1 SUPERVISION. WILL CONTINUE TO MONITOR. REPORT WILL BE GIVEN TO DAY SHIFT RN.
--- NOTE | 2021-04-20 09:09 | NUR ---
ASSUMED CARE OF PATIENT AT APPROX 0700. VSS. PT RECEIVING DIALYSIS. REPORT GIVEN TO CORAL CISSE RN.
--- NOTE | 2021-04-20 10:23 | NUR ---
CARE ASSUMPTION THIS RN ASSUMEC CARE AT 0830. PATIENT IS A/OX4. PATIENT REPORTS NO PAIN, CHEST PAIN, OR SOB. VSS. DIALYSIS IN ROOM. CALL LIGHT WITHIN REACH. WILL CONTINUE TO MONITOR AND PROVIDE CARE.
--- NOTE | 2021-04-20 16:10 | NUR ---
Spiritual care visit conducted. Patient is lying in bed and alert. Patient immediately tells me about not seeing his 10 y/o son since February because of illness and isolation. Patient also talks about the emotional/spiritual distress he has felt due the intense medical smyptoms he has suffered. He talks about the personal mental, financial and relational struggles as well. I provide therapeutic listening, gentle counselor nurses' association and prayer. Patient responds well and shows signs of increased peace and hope. I will continue to remain available to patient and family.
--- NOTE | 2021-04-20 18:06 | NUR ---
SHIFT SUMMARY PATIENT IS A/OX4. VSS. SPO2 >90% ON TRACH COLLAR 6L 40%. PATIENT REPOSITIONS PER HIS REQUEST. PATIENT HAD FAMILY IN THIS AFTERNOON AND WAS ABLE TO SEE HIS SON TODAY. PATIENT IS ON A SOFT DIET AND TUBE FEEDING REMOVED. NO ACUTE CHANGES DURING THIS SHIFT. CALL LIGHT WITHIN REACH. WILL CONTINUE TO MONITOR AND PROVIDE CARE UNTIL HAND OFF WITH NEXT SHIFT.
[2021-04-21 05:32] LABS: Hematocrit 28.4 % (37.0-53.0); Hemoglobin 8.5 g/dL (13.5-17.5)
[2021-04-21 05:36] LABS: Albumin, Blood 2.6 g/dL (3.4-5.0); Anion Gap 9 mmol/L (6-16); Blood Urea Nitrogen 60 mg/dL (8-24); Bun/Creatinine Ratio 15.7 (12.0-20.0); CO2, Blood 27 mmol/L (21-32); Calcium, Blood 10.2 mg/dL (8.5-10.1); Chloride, Blood 94 mmol/L (98-108); Creatinine, Blood 3.81 mg/dL (0.60-1.20); Glomerular Filtration Rate 18 (60-); Glucose, Blood 98 mg/dL (70-99); Magnesium, Blood 2.5 mg/dL (1.6-2.4); Phosphorus, Blood 4.7 mg/dL (2.5-4.9); Potassium, Blood 4.1 mmol/L (3.5-5.5); Sodium, Blood 130 mmol/L (136-145)
--- NOTE | 2021-04-21 06:51 | NUR ---
SHIFT SUMMARY PATIENT IS RESTING IN BED COMFORTABLY. BED IS IN LOW POSITION. CALL LIGHT IS IN REACH. VITALS WERE STABLE. THE PATIENT DID WELL DURING THE NIGHT AND HE WAS ABLE TO GET SOME SLEEP. PT COMPLAINED OF PAIN AND DISCOMFORT IN HIS COCCYX ARE PRN PAIN MEDICATION WAS GIVEN. LEFT FOOT DROP OFFERED TO PUT HIS BOOT ON BUT HE REFUSED. TRACH COLLAR IS IN PLACE AT 6L WITH 40% FIO2 SATURATING IN THE MID TO HIHG 90%. TRACH WAS UNCAPPED LAST NIGHT PER PATIENT'S REQUEST.WILL CONTINUE TO MONITOR. REPORT WILL BE GIVEN TO DAY SHIFT
[2021-04-21 14:10] LABS: A/G RATIO 0.6 (0.7-1.7); ALBUMIN 3.1 g/dL (2.9-4.4); ALPHA-1-GLOBULIN 0.4 g/dL (0.0-0.4); ALPHA-2-GLOBULIN 1.1 g/dL (0.4-1.0); BETA GLOBULIN 1.4 g/dL (0.7-1.3); GAMMA GLOBULIN 2.7 g/dL (0.4-1.8); GLOBULIN, TOTAL 5.7 g/dL (2.2-3.9); IMMUNOGLOBULIN A, QN, SERUM 332 mg/dL (90-386); IMMUNOGLOBULIN G, QN, SERUM 2906 mg/dL (603-1613); IMMUNOGLOBULIN M, QN, SERUM 86 mg/dL (20-172); M-SPIKE Not Observed g/dL (Not Observed); PROTEIN, TOTAL, SERUM 8.8 g/dL (6.0-8.5)
--- NOTE | 2021-04-21 17:49 | NUR ---
SHIFT SUMMARY PT HAS BEEN RESTING IN BED FOR THE DURATION. PT WAS UP OOB WITH THERAPIES. PT WAS TRANSPORTED TO IMAGING BY BED. BLOOD PRESSURE HAS BEEN CONSISTENT 130'S/90'S, VSS. PT HAS HAD CONSISTENT LOW BACK AND BUTTOCKS PAIN FROM PRESSURE, REPOSITIONING PROVIDES TEMPORARY RELIEF. PT HAS HAD DIFFICULTY ADJUSTING TO NECTAR THICK LIQUID, MANY OPTIONS WERE ATTEMPTED. PT IS ALERT AND ORIENTED AND CALLS APPROPRIATELY. NO ACUTE CHANGES TO CONDITION OCCURED THIS SHIFT.
[2021-04-22 05:35] LABS: Hematocrit 25.5 % (37.0-53.0); Hemoglobin 7.7 g/dL (13.5-17.5)
[2021-04-22 06:06] LABS: Albumin, Blood 2.5 g/dL (3.4-5.0); Anion Gap 12 mmol/L (6-16); Blood Urea Nitrogen 76 mg/dL (8-24); Bun/Creatinine Ratio 17.3 (12.0-20.0); CO2, Blood 25 mmol/L (21-32); Calcium, Blood 9.6 mg/dL (8.5-10.1); Chloride, Blood 89 mmol/L (98-108); Creatinine, Blood 4.39 mg/dL (0.60-1.20); Glomerular Filtration Rate 15 (60-); Glucose, Blood 95 mg/dL (70-99); Magnesium, Blood 2.5 mg/dL (1.6-2.4); Phosphorus, Blood 5.3 mg/dL (2.5-4.9); Potassium, Blood 4.7 mmol/L (3.5-5.5); Sodium, Blood 126 mmol/L (136-145)
--- NOTE | 2021-04-22 07:49 | NUR ---
SHIFT SUMMARY PATIENT IS RESTING IN BED COMFORTABLY. BED IS IN LOW POSITION. CALL LIGHT IS IN REACH. VITALS WERE STABLE. THE PATIENT DID WELL DURING THE NIGHT AND HE WAS ABLE TO GET SOME SLEEP. PT COMPLAINED OF DISCOMFORT IN HIS COCCYX AND ABLE TO MINIMALY REPOSITION SELF. LEFT FOOT DROP, OFFERED TO PUT HIS BOOT ON BUT HE REFUSED. TRACH COLLAR IS IN PLACE AT 6L WITH 40% FIO2 SATURATING IN THE MID TO HIHG 90%. TRACH WAS UNCAPPED LAST NIGHT PER PATIENT'S REQUEST. TRACH CARE WAS DONE AND PT WAS SUCTIONED NEEDED. WILL CONTINUE TO MONITOR. REPORT WILL BE GIVEN TO DAY SHIFT
[2021-04-22 10:10] LABS: ANTIGLOMERULAR BM AB 6 units (0-20)
[2021-04-22 10:40] LABS: Percent Saturation 15.1 % (20.0-50.0); Thyroid Stimulating Hormone 3.32 uIU/mL (0.360-4.800)
[2021-04-22 13:10] LABS: ANA DIRECT Negative (Negative); ANTIMYELOPEROXIDASE (MPO) ABS <9.0 U/mL (0.0-9.0); ANTIPROTEINASE 3 (PR-3) ABS <3.5 U/mL (0.0-3.5); ATYPICAL PANCA <1:20 titer (Neg:<1:20); CYTOPLASMIC (C-ANCA) <1:20 titer (Neg:<1:20); PERINUCLEAR (P-ANCA) <1:20 titer (Neg:<1:20)
--- NOTE | 2021-04-22 16:17 | NUR ---
PT SUMMARY: NO ACUTE CHANGE FOR THE SHIFT, PT REMAINED ON TRACH COLLAR 6L 40% FIO2, TRACH CARE DONE BY RT THIS AM. VITALS HAS BEEN STABLE. PT HAD DIALYSIS TODAY. MOM WAS IN TO VISIT. HAD DECENT URINE OUTPUT THIS AM HAD SOME BLOOD TINGE IN THE ATTENDS PER STUDIO ASSOCIATE. NO OTHER COMPLAINS REPORTED, PT REPOSITIONED IN BED, TOLERATING PO MEDS IN APPLESAUCE, THICKENED FLUIDS AND SOFT DIET. WILL CONTINUE TO MONITOR
--- NOTE | 2021-04-22 22:22 | NUR ---
ASSUMPTION OF CARE ASSUMED CARE OF PT FROM POOJA Esparza AT 2100. AGREE WITH ASSESMENT CHARTED AND INTERVENTIONS NOTED.
[2021-04-23 05:24] LABS: Hemoglobin 8.4 g/dL (13.5-17.5)
--- NOTE | 2021-04-23 05:31 | NUR ---
SHIFT SUMMARY NO ACUTE CHANGES THIS SHIFT. VSS. REMAINS ON 35% TRACH COLLAR. PT BEING TURNED BY STAFF BUT ALSO HAVE LET PT REST FOR LONG PERIODS OF TIME THIS SHIFT. PT CONTINUES TO TOLERATE PO INTAKE WELL. OLIGURIC. OTHERWISE, PT RESTING IN BED.
[2021-04-23 06:06] LABS: Albumin, Blood 2.5 g/dL (3.4-5.0); Anion Gap 8 mmol/L (6-16); Blood Urea Nitrogen 52 mg/dL (8-24); Bun/Creatinine Ratio 15.8 (12.0-20.0); CO2, Blood 30 mmol/L (21-32); Calcium, Blood 9.9 mg/dL (8.5-10.1); Chloride, Blood 93 mmol/L (98-108); Creatinine, Blood 3.29 mg/dL (0.60-1.20); Glomerular Filtration Rate 21 (60-); Glucose, Blood 101 mg/dL (70-99); Magnesium, Blood 2.4 mg/dL (1.6-2.4); Phosphorus, Blood 4.2 mg/dL (2.5-4.9); Potassium, Blood 3.8 mmol/L (3.5-5.5); Sodium, Blood 131 mmol/L (136-145)
--- NOTE | 2021-04-23 14:24 | NUR ---
Patient immediately tells me about his frustration about feeling forced into being transferred to a Rehabilitation facility in [place], [place]. He states that the seperation from family has taken a toll on him and his family. Patient explains about the intense activity of his morning and how exhausted he is. He also talks about the spiritual/emotional weight he is carrying. I normalize his experience, discuss coping strategies and provide therapeutic listening and prayer. Patient responds well and displays evidence of reduced stress. I will continue to assist patient in dealing with the spiritual/emotional aspects of the physical recovery.
[2021-04-23 15:12] LABS: M-SPIKE, % Not Observed % (Not Observed); PROTEIN,TOTAL,URINE 956.3 mg/dL (Not Estab.)
--- NOTE | 2021-04-23 17:51 | NUR ---
VSS. AFEBRILE. C/O BLE PAIN- TYLENOL X1 WITH ADEQUATE CONTROL OF PAIN PER PT. REMAINS OLIGURIC. BM X1. TOLERATING CURRENT DIET. WORKED WITH PT/OT- STOOD EOB MOD/MAX ASSIST. ST RE-EVAL COMPLETED- SEE NOTES. TRACH SETTINGS WEANED. TENTATIVE HD SCHEDULED TOMORROW. PENDING TRANSFER TO ACCEPTING SNF. FREQUENT ROUNDS TO ENSURE PT SAFETY. PT IN NO APPARENT DISTRESS AT THIS TIME. WILL CONTINUE TO MONITOR UNTIL TRANSFER OF CARE TO ONCOMING RN.
--- NOTE | 2021-04-23 18:56 | NUR ---
Update: Physician spoke with this RN this morning with concerns about Pt's son not being able to see patient and patient being very depressed, withdrawn about it. Physician thinks this would help with his rehab. Came to agreement with pt, his and physician about son being ok to visit on Tuesday's, Tuesday's and Tuesday's from [phone]. Clinical Coordinator and nursing millroom supervisor informed of this plan.
[2021-04-24 05:07] LABS: Hematocrit 27.5 % (37.0-53.0); Hemoglobin 8.3 g/dL (13.5-17.5)
[2021-04-24 05:25] LABS: Albumin, Blood 2.4 g/dL (3.4-5.0); Anion Gap 7 mmol/L (6-16); Blood Urea Nitrogen 66 mg/dL (8-24); Bun/Creatinine Ratio 17.2 (12.0-20.0); CO2, Blood 30 mmol/L (21-32); Calcium, Blood 9.9 mg/dL (8.5-10.1); Chloride, Blood 91 mmol/L (98-108); Creatinine, Blood 3.83 mg/dL (0.60-1.20); Glomerular Filtration Rate 18 (60-); Glucose, Blood 93 mg/dL (70-99); Magnesium, Blood 2.5 mg/dL (1.6-2.4); Phosphorus, Blood 3.5 mg/dL (2.5-4.9); Potassium, Blood 4.5 mmol/L (3.5-5.5); Sodium, Blood 128 mmol/L (136-145)
--- NOTE | 2021-04-24 06:07 | NUR ---
SHIFT SUMMARY NO ACUTE CHANGES THIS SHIFT. VSS. REMAINS AXO. IN ST/SR. ON 30% TRACH COLAR. TRACH SECURE. VOIDED TWICE THIS SHIFT. PT CONTINUING TO TOLERATE PO INTAKE. PICC PATENT. PT TURNING VIA HELP FROM STAFF. STATES SLEEPING MUCH "BETTER" THIS SHIFT WITH INCREASED SEROQUEL DOSE. OTHERWISE, PT RESTING IN ROOM. CALL LIGHT IN PLACE.
--- NOTE | 2021-04-24 17:53 | NUR ---
VSS. AFEBRILE. C/O BLE FOOT PAIN- TYLENOL X1 WITH ADEQUATE CONTROL OF PAIN PER PT. OLIGURIA WITH SMALL INCONTINENT EVENTS, HD PT. NO BM. DIET ADVANCED FOLLOWING SP RE-EVAL. WORKED WITH PT/OT- BED EXCIRCISES ONLY. HD COMPLETED. PENDING SNF TRANSFER ONCE BED BECOMES AVAILABLE. NO CHANGE TO O2 SETTINGS- NO DESAT EVENTS NOTED DURING SHIFT, REQUIRED MINIMAL SUCTIONING. FREQUENT ROUNDS TO ENSURE PT SAFETY. PT IN NO APPARENT DISTRESS AT THIS TIME. WILL CONTINUE TO MONITOR UNTIL TRANSFER OF CARE TO ONCOMING RN.
[2021-04-25 04:31] LABS: BASOPHILS PERCENT AUTO 1 % (0-2); EOSINOPHILS ABSOLUTE AUTO 0.31 K/mm3 (0.00-0.68); EOSINOPHILS PERCENT AUTO 3 % (0-6); Hematocrit 27.4 % (37.0-53.0); Hemoglobin 8.3 g/dL (13.5-17.5); IMMATURE GRAN ABSOLUTE AUTO 0.05 K/mm3 (0.00-0.10); IMMATURE GRAN PERCENT AUTO 1 % (0-1); LYMPHOCYTES ABSOLUTE AUTO 1.28 K/mm3 (0.84-5.20); LYMPHOCYTES PERCENT AUTO 12 % (21-46); MONOCYTES ABSOLUTE AUTO 0.89 K/mm3 (0.16-1.47); MONOCYTES PERCENT AUTO 8 % (4-13); Mean Corpuscular HGB 27.5 pg (26.0-34.0); Mean Corpuscular HGB Conc 30.3 g/dL (31.5-36.5); Mean Corpuscular Volume 91 fL (80-100); Mean Platelet Volume 8.5 fL (9.1-12.4); NEUTROPHILS ABSOLUTE AUTO 8.07 K/mm3 (1.96-9.15); NEUTROPHILS PERCENT AUTO 75 % (41-73); Platelet Count 466 K/mm3 (150-400); RDW Coefficient Variation 16.9 % (11.7-14.2); RDW Standard Deviation 56.2 fL (35.1-46.3); Red Blood Cell Count 3.02 M/mm3 (4.30-5.90)
[2021-04-25 04:48] LABS: Albumin, Blood 2.2 g/dL (3.4-5.0); Anion Gap 6 mmol/L (6-16); Blood Urea Nitrogen 42 mg/dL (8-24); Bun/Creatinine Ratio 16.5 (12.0-20.0); CO2, Blood 31 mmol/L (21-32); Calcium, Blood 9.9 mg/dL (8.5-10.1); Chloride, Blood 98 mmol/L (98-108); Creatinine, Blood 2.54 mg/dL (0.60-1.20); Glomerular Filtration Rate 29 (60-); Glucose, Blood 106 mg/dL (70-99); Magnesium, Blood 2.2 mg/dL (1.6-2.4); Phosphorus, Blood 3.2 mg/dL (2.5-4.9); Potassium, Blood 3.8 mmol/L (3.5-5.5); Sodium, Blood 135 mmol/L (136-145)
--- NOTE | 2021-04-25 06:32 | NUR ---
SHIFT SUMMARY PT ALERT AND ORIENTED X4. PLEASANT AND COOPERATIVE TO CARE. DESAT EARLY IN EVENING AFTER PT MOVEMENT. FIO2 ADJUSTED TO 35% AND PT MAINTAINING SATS OVER 92%. MEPILEX REPLACED ON SACRUM. C/O OF RIGHT FOOT PAIN. RIGHT BOOT IN PLACE LONG TOLERABLE. HR ST 100'S-110'S. WILL CONTINUE TO MONITOR UNTIL REPORT GIVEN TO ONCOMING RN
--- NOTE | 2021-04-25 19:12 | NUR ---
VSS. AFEBRILE. OLIGURIA WITH OCCASSIONAL INCONTINENT EVENTS, HD PT. NO BM. TOLERATING CURRENT DIET. TRACH COLLAR SETTINGS REMAIN THE SAME- SEE FLOWSHEETS. FREQUENT ROUNDS TO ENSURE PT SAFETY. PT IN NO APPARENT DISTRESS AT THIS TIME. WILL CONTINUE TO MONITOR UNTIL TRANSFER OF CAR TO ONCOMING RN.
[2021-04-26 05:28] LABS: Hematocrit 28.1 % (37.0-53.0); Hemoglobin 8.4 g/dL (13.5-17.5)
[2021-04-26 05:48] LABS: Albumin, Blood 2.3 g/dL (3.4-5.0); Anion Gap 7 mmol/L (6-16); Blood Urea Nitrogen 50 mg/dL (8-24); Bun/Creatinine Ratio 21.6 (12.0-20.0); CO2, Blood 28 mmol/L (21-32); Calcium, Blood 10.3 mg/dL (8.5-10.1); Chloride, Blood 98 mmol/L (98-108); Creatinine, Blood 2.32 mg/dL (0.60-1.20); Glomerular Filtration Rate 32 (60-); Glucose, Blood 91 mg/dL (70-99); Magnesium, Blood 2.1 mg/dL (1.6-2.4); Phosphorus, Blood 3.2 mg/dL (2.5-4.9); Potassium, Blood 4.5 mmol/L (3.5-5.5); Sodium, Blood 133 mmol/L (136-145)
--- NOTE | 2021-04-26 06:53 | NUR ---
SHIFT SUMMARY PT ALERT AND ORIENTED X4. ON TRACH COLLAR 6L 30 FIO2. MAINTAINING SATS OVER 92. HAS OCCASIONAL SECRETIONS THAT NEED TO BE SUCTIONED. PT HAS BEEN ST 110-125. NO COMPLAINTS OF CP. LEFT FOOT DROOP WITH PAIN 3/10, MANAGED PER EMAR. PICC IN RIGHT DRAWS BLOOD. PT INCONTINENT. IN BED RESTING WITH CALL ALARM AT SIDE. WILL CONTINUE TO MONITOR UNTIL REPORT GIVEN
--- NOTE | 2021-04-26 13:08 | NUR ---
echocardiogram complete
--- NOTE | 2021-04-26 19:21 | NUR ---
SHIFT SUMMARY PT A&Ox4; COOPERATIVE WITH CARE T/O SHIFT. PT ANXIOUS AT TIMES, x1 WITH ALPRAZOLAM. PT REPORTS GENERALIZED DISCOMFORT, REPOSITIONED T/O SHIFT FOR COMFORT. PT STARTED THIS AM ON TRACH COLLAR AT 6L 28-30% FIO2; TRACH CARE COMPLETED WITH RT AND INNER CANNULA REPLACED. DR LAGOS AT BEDSIDE THIS AFTERNOON, TRACH PLUGGED; PLACED ON 3L O2 VIA NC, TITRATED TO 2L O2 VIA NC. PT APPEARS TO BE TOLERATING WELL. PT SINUS TACH T/O SHIFT, NOTIFIED DR ORELLANA, NO NEW ORDERS. BP ELEVATED NOTED DR ORELLANA, NEW ORDERS. PT DENIES CHEST PAIN, SOB AND NAUSEA. PT REPORTS DIZZINESS WHEN SITTING UP OR LYING BACK. ENCOURAGED PO INTAKE AND WATER. PT UP IN CHAIR THIS EVENING FOR DINNER. OTHER VSS. NO OTHER ACUTE CHANGES NOTED. WILL CONTINUE TO MONITOR UNTIL REPORT GIVEN TO ONCOMING RN.
[2021-04-27 04:28] LABS: Hematocrit 29.2 % (37.0-53.0); Hemoglobin 8.8 g/dL (13.5-17.5)
[2021-04-27 04:52] LABS: Alanine Aminotransfer (ALT/SGP 63 U/L (12-78); Albumin, Blood 2.3 g/dL (3.4-5.0); Albumin/Globulin Ratio 0.4 (0.8-1.8); Alk Phos 118 U/L (50-136); Anion Gap 9 mmol/L (6-16); Aspartate Aminotrans (AST/SGOT 24 U/L (12-37); Bilirubin, Direct <0.1 mg/dL (0.0-0.3); Bilirubin, Indirect Unable to Calculate mg/dL (0.1-0.7); Bilirubin, Total 0.2 mg/dL (0.1-1.0); Blood Urea Nitrogen 71 mg/dL (8-24); Bun/Creatinine Ratio 35.1 (12.0-20.0); CO2, Blood 26 mmol/L (21-32); Calcium, Blood 10.5 mg/dL (8.5-10.1); Chloride, Blood 99 mmol/L (98-108); Creatinine, Blood 2.02 mg/dL (0.60-1.20); Globulin, Blood 5.4 g/dL (2.2-4.0); Glomerular Filtration Rate 37 (60-); Glucose, Blood 107 mg/dL (70-99); Magnesium, Blood 1.8 mg/dL (1.6-2.4); Phosphorus, Blood 3.5 mg/dL (2.5-4.9); Potassium, Blood 4.5 mmol/L (3.5-5.5); Sodium, Blood 134 mmol/L (136-145); Total Protein, Blood 7.7 g/dL (6.4-8.2)
--- NOTE | 2021-04-27 06:27 | NUR ---
SHIFT SUMMARY ALERT AND ORIENTED X4. ON 2L NC, TOLERATING WELL. HYPERTENSIVE THIS EVENING, MANAGED PER EMAR. HR ST 110'S TO 120'S. PICC LINE DRAWS. 1 BM THIS EVENING. ANXIOUS AT TIMES, ESPECIALLY ABOUT SATS. IN BED RESTING WITH CALL ALARM AT SIDE, WILL CONTINUE TO MONITOR UNTIL REPORT GIVEN TO DAYSHIFT RN.
--- NOTE | 2021-04-27 16:20 | NUR ---
Spiritual care visit conducted. Patient tells me about his improvements including possible removal of the trech today and the improvement in his kidney function to the level of not needing dialysis. Patient talks about the challenges his is facing. I provide prayer, emotional support and gentle correctional classification counselor. Patient responds well and shows signs of an elevated mood. I will continue to remain available to patient and family.
--- NOTE | 2021-04-27 18:00 | NUR ---
PT SUMMARY: ALERT AND ORIENTED X 4, PT ON 2L/NC AND TOLERATED IT WELL, PT WAS HYPERTENSIVE FOR MAJORITY OF SHIFT. MANAGED PER eMAR. HR ST 115-140's. 3/10 PAIN LEVEL FROM LEFT FOOT DROP. MANAGED PER eMAR. TRACH REMOVED BY PROVIDER. PT HAS TOLERATED IT WELL. PT WAS INCONTINET OF URINE X 2. PT WAS ANXIOUS DURING SHIFT ESPECIALLY ABOUT STATS/BP. IN BED RESTING TALKING TO AND MAKING PHONE CALLS. WILL CONTINUE TO MONITOR UNTIL NEWSROOM INTERN REPORT.
--- NOTE | 2021-04-27 19:51 | NUR ---
SHIFT SUMMARY PT A&Ox4; ANXIOUS, COOPERATIVE WITH CARE. PT RESTING IN BED FOR MAJORITY OF SHIFT. PT REPORTS PAIN TO LEFT FOOT, WHILE IN BOOT OR WITH MOVEMENT OR TOUCHING. PT TACHYPNIC AT TIMES, SPO2 >90% ON 2L O2 VIA NC. THIS AM PT TRACH CONTINUES TO BE PLUGGED, DR DICKSON AT BEDSIDE THIS AM, DISCUSSED THE XRAY RESULTS. THIS AFTERNOON DR DICKSON AT BEDSIDE WITH YAMILET RT, TRACH REMOVED, TEGADERM AND MIKE APPLIED TO STOMA; PT TOLERATED WELL, ANXIETY NOTED, DENIED NEEDS FOR MEDICATIONS. PT CONTINUES ON 2L O2 VIA NC. PT HYPERTENSIVE AND TACHYCARDIC T/O SHIFT, DISCUSSED WITH DR ORELLANA NEW ORDERS ENTERED AND MEDICATIONS ADMINISTERED PER ORDERS. NEW CONSULT WITH DR MAYER, PLANS TO START NEW MEDICATIONS TOMORROW. NOTIFIED OF DROPPED BEATS THIS AFTERNOON FROM 0757 THIS AM, NOTIFIED DR MAYER. PT DENIES CHEST PAIN/PRESSURE, NAUSEA AND DIZZINESS T/O SHIFT. OTHER VSS. NO OTHER ACUTE CHANGES NOTED. REPORT GIVEN TO ONCOMING RN.
--- NOTE | 2021-04-28 05:40 | NUR ---
SHIFT SUMMARY ASSUMED CARE OF PT AT 1900. PT IS A/OX4. HEART SOUNDS REGULAR, LUNG SOUNDS ARE COARSE. PT REMAINED ON 2L NC T/O THE NIGHT. PT WAS INCONTINENT OF STOOL AND URINE BUT WAS ABLE TO COMMUNICATE WHEN HE GOES. PT C/O CONSTIPATION AND STATES HE WASNT STOOL SOFTENERS IN THE AM. PT COCCYX WOUND IN HEALING, MEPILEX CHANGED. PT WAS ABLE TO ROLL AROUND IN THE BED ON HIS OWN. PT WAS ABLE TO SLEEP T/O THE NIGHT. PT HAS A 3 SECOND PAUSE AT 0346 THIS AM. DICUSSED CARE WITH CHARGE NURSE AND THIS HAS BEEN A TREND FOR THE PT. VITAL SIGNS STABLE AND NO NEW COMPLAINTS. CALL LIGHT IN REACH, BED IN LOWEST POSTION.
[2021-04-28 10:27] LABS: Albumin, Blood 2.4 g/dL (3.4-5.0); Anion Gap 8 mmol/L (6-16); Blood Urea Nitrogen 79 mg/dL (8-24); CO2, Blood 29 mmol/L (21-32); Calcium, Blood 10.6 mg/dL (8.5-10.1); Chloride, Blood 101 mmol/L (98-108); Creatinine, Blood 1.68 mg/dL (0.60-1.20); Glomerular Filtration Rate 46 (60-); Glucose, Blood 99 mg/dL (70-99); Phosphorus, Blood 5.1 mg/dL (2.5-4.9); Potassium, Blood 4.7 mmol/L (3.5-5.5); Sodium, Blood 138 mmol/L (136-145)
[2021-04-28 11:16] LABS: BASOPHILS ABSOLUTE AUTO 0.09 K/mm3 (0.00-0.23); BASOPHILS PERCENT AUTO 1 % (0-2); EOSINOPHILS ABSOLUTE AUTO 0.36 K/mm3 (0.00-0.68); EOSINOPHILS PERCENT AUTO 3 % (0-6); Hematocrit 30.3 % (37.0-53.0); Hemoglobin 8.9 g/dL (13.5-17.5); IMMATURE GRAN ABSOLUTE AUTO 0.06 K/mm3 (0.00-0.10); IMMATURE GRAN PERCENT AUTO 1 % (0-1); LYMPHOCYTES ABSOLUTE AUTO 1.17 K/mm3 (0.84-5.20); LYMPHOCYTES PERCENT AUTO 11 % (21-46); MONOCYTES ABSOLUTE AUTO 0.86 K/mm3 (0.16-1.47); MONOCYTES PERCENT AUTO 8 % (4-13); Mean Corpuscular HGB 26.6 pg (26.0-34.0); Mean Corpuscular HGB Conc 29.4 g/dL (31.5-36.5); Mean Corpuscular Volume 91 fL (80-100); Mean Platelet Volume 8.5 fL (9.1-12.4); NEUTROPHILS ABSOLUTE AUTO 8.54 K/mm3 (1.96-9.15); NEUTROPHILS PERCENT AUTO 77 % (41-73); Platelet Count 508 K/mm3 (150-400); RDW Coefficient Variation 16.9 % (11.7-14.2); RDW Standard Deviation 55.8 fL (35.1-46.3); Red Blood Cell Count 3.34 M/mm3 (4.30-5.90); White Blood Cell Count 11.08 K/mm3 (4.00-11.30)
--- NOTE | 2021-04-28 17:33 | NUR ---
SHIFT SUMMARY PT A&OxX, ANXIOUS AT TIMES. PT EMOTIONAL THIS AM WHEN DISCUSSING HIS PROGRESS, USED THERAPUTIC LISTENING, COMFORT AND ENCOURAGEMENT GIVEN. ENCOURAGED PT TO GET UP IN CHAIR FOR MEALS, PT UP VIA LIFT FOR LUNCH AND DINNER. PT REPORTS MINIMAL PAIN TO LLE, MEDICATED WITH SCHEDULE LYRICA. PT DENIES CHEST PAIN, SOB, NAUSEA AND DIZZINESS. SPOW >90% ON 2L O2 VIA NC, ATTEMPTED TO TITRATED BUT SPO2 87-88%. PT APPEARS TO BE SLEEPING INTERMITTENTLY T/O SHIFT. BP TRENDING DOWN, HR 110-130'S. EDUCATED PT ON NEW MEDICATION THIS AM. TEGADERM AND GAUZED IN PLACE OVER STOMA. NO OTHER ACUTE CHANGES NOTED. WILL CONTINUE TO MONITOR UNTIL REPORT GIVEN TO ONCOMING RN.
[2021-04-29 05:09] LABS: Hematocrit 29.3 % (37.0-53.0); Hemoglobin 8.5 g/dL (13.5-17.5)
[2021-04-29 05:37] LABS: Albumin, Blood 2.4 g/dL (3.4-5.0); Anion Gap 3 mmol/L (6-16); Blood Urea Nitrogen 85 mg/dL (8-24); Bun/Creatinine Ratio 52.1 (12.0-20.0); CO2, Blood 31 mmol/L (21-32); Calcium, Blood 10.6 mg/dL (8.5-10.1); Chloride, Blood 103 mmol/L (98-108); Creatinine, Blood 1.63 mg/dL (0.60-1.20); Glomerular Filtration Rate 48 (60-); Glucose, Blood 103 mg/dL (70-99); Magnesium, Blood 1.7 mg/dL (1.6-2.4); Phosphorus, Blood 4.4 mg/dL (2.5-4.9); Potassium, Blood 4.6 mmol/L (3.5-5.5); Sodium, Blood 137 mmol/L (136-145)
--- NOTE | 2021-04-29 05:58 | NUR ---
SHIFT SUMMARY ASSUMED CARE OF PT AT 1900. PT IS A/OX4. HEART SOUNDS REGULAR, LUNG SOUNDS COARSE. PT WAS MORE TYPICNIC THIS SHIFT, SATURATIONS WERE 88-90% ON 2L NC. PT WAS BUMPED TO 4L AND SATURATIONS INCREASED TO 92-95%, AND PT IS NOT BACK ON 2L THIS AM WITH SATURATIONS WNL. PT STATES THAT HIS NOSE FEELS STUFFY TODAY, PT HAD A BLOODY NOSE EARLIER THIS SHIFT. PT WAS INCONTIENT THIS SHIFT. PT REFUSED BOWEL CARE BECAUSE IT WAS NOT A PILL. PT COCCYX WOUND IS HEALING SHOWED BY NEW SKIN GROWING AROUND THE AREA. CALL LIGHT IN REACH, BED IN LOWEST POSTION.
--- NOTE | 2021-04-29 08:00 | NUR ---
INITIAL ASSESSMENT: Patient is awake, alert and oriented. Patient reports minimal pain in LLE, he has foot drop. HR ST in the 120s, patient had multiple pauses this am around 0645, ranging from 3-5 seconds-Dr. Toney aware beta blockers DC'd and EKG done-no other new orders. LS DIM t/o with some coarseness noted, patient has a "squeak" at the end of expiration on the right. Patient has coarse NPC. BT hypoactive T/O, will start bowel care protocol. PPP. Patient has mepilex to coccyx, he has a dime sized pressure ulcer to coccyx, appears to be healing. Patient given AM med whole in applesauce with out difficulty. Patient has foot drop to LLE, he is able to push against my hand only. Patient denies other needs at this time. Call light in reach. Will Continue to monitor.
--- NOTE | 2021-04-29 12:30 | NUR ---
UPDATE: Patient OOB to recliner with OT. He was able to tolerate being out of bed for about an hour with some encouragement, he was lifted back to bed. He C/O severe coccyx pain while sitting in the chair, but declines pain medication or repositioning. VSS.
--- NOTE | 2021-04-29 18:06 | NUR ---
Summary: Patient has had a fairly good day. He was able to work with therapy and get OOB to the chair for about an hour and work with occupational therpay, he polietly declined to work with PT. Blood pressure has been high t/o the shift, pt has PO hydralazine and was also given a PRN as well. He started the shift off with multiple pauses, epi and atropine at the bedside, metoprolol DC'd. Patient has been in sinus tach t/o the shift rates ranging from 110-120s. Biox has been stable on 2-[address] Toney and Dr. Adams talked with the patients and provided updates. Plan per care management is for patient to be discharged to an IRU down at [facility] in [place], discharge potentially tuesday or tuesday pending insurance auth. No other acute changes this shift. Will report to jenise DANIEL.
--- NOTE | 2021-04-29 20:30 | NUR ---
ASSUMED CARE OF PATIENT AT 1900. A/OX4. VERY TREMULOUS TODAY. NUMBNESS IN L FOOT (DROP FOOT). WEAKNESS IN ALL EXTREMITIES. MAINTAINING ABOVE 92% ON 3L NC, DIM/COARSE IN UPPER LOBES, AND DIM IN LOWER. COUGH PRODUCING SMALL QUANTITY OF THICK/WHITE SPUTUM. 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 TRACE EDEMA LLE. MEPILEX ON BUTTOCKS. OLD TRACH SITE AND PORTACATH SITE C/D/I. WILL UPDATE WITH ANY CHANGES THIS SHIFT.
[2021-04-30 07:44] LABS: Albumin, Blood 2.4 g/dL (3.4-5.0); Anion Gap 4 mmol/L (6-16); Blood Urea Nitrogen 68 mg/dL (8-24); Bun/Creatinine Ratio 57.6 (12.0-20.0); CO2, Blood 31 mmol/L (21-32); Calcium, Blood 10.6 mg/dL (8.5-10.1); Chloride, Blood 104 mmol/L (98-108); Creatinine, Blood 1.18 mg/dL (0.60-1.20); Glomerular Filtration Rate >60 (60-); Glucose, Blood 126 mg/dL (70-99); Magnesium, Blood 1.4 mg/dL (1.6-2.4); Phosphorus, Blood 4.4 mg/dL (2.5-4.9); Potassium, Blood 4.4 mmol/L (3.5-5.5); Sodium, Blood 139 mmol/L (136-145)
--- NOTE | 2021-04-30 14:41 | NUR ---
Spiritual care visit conducted. Patient is tearful today but is easily encouraged as we celebrate all the improvements, pray and discuss the his excitement about going to [place] instead of [place]. I provide therapeutic listening and reinforce helpful attitudes and practices. Patient displays evidence of increased hope and angélica. I will continue to remain available to patient and family.
--- NOTE | 2021-04-30 17:25 | NUR ---
SHIFT SUMMARY PT HAS SPENT A PORTION OF THE DAY IN THE BEDSIDE CHAIR, PT TOLERATED FAIR AND CALLED WHEN THEY WERE READY TO RETURN TO BED. PT EXPRESSED CONCERN OVER CURRENT CONDITION AND TREATMENT OPTIONS THAT WERE EXPRESSED TO THEM FROM THE PROVIDERS. PT IS ANXIOUS AND FEARFUL REGARDING ANY FORM OF VENTILATORY SUPPORT. SBP HAS REMAINED ELEVATED 148-157, AND TACHYCARDIA HAS PERSISTED 110-120.
--- NOTE | 2021-04-30 20:00 | NUR ---
ASSUMED CARE OF PATIENT AT 1900. A/OX4 WITH INCREASED ANXIETY. NO CP. MAINTAINING OVER 92% ON 3L NC WITH FINE CRACKLES ON TOP AND DIM ON BOTTOM. SHALLOW BREATH PATTERN. SINUS TACH WITH 2ND DEGREE HB TYPE 2 WITH RECENT HISTORY OF PAUSES. TRACE EDEMA BLLE, HYPOACTIVE BOWEL SOUNDS. COCCYX WOUND WITH MEPILEX IN PLACE. WILL UPDATE CHANGES ARISE.
--- NOTE | 2021-04-30 22:00 | NUR ---
PATIENT WAS ASKED TO LAY ON SIDE TO SEE IF PAUSES IN HEART RHYTHM RESOLVE, PATIENT STILL DESATTED WHILE ASLEEP. ATTEMPTED CPAP FOR 30 MINUTES BUT WAS VERY TACHYPNEIC. SWITCHED BACK OVER TO NC BUT PLACED IN HIS MOUTH HE IS A CHRONIC MOUTH BREATHER. SATS REMAIN ABOVE 92%.
[2021-05-01 03:48] LABS: Hematocrit 29.2 % (37.0-53.0); Hemoglobin 8.4 g/dL (13.5-17.5)
[2021-05-01 04:08] LABS: Albumin, Blood 2.5 g/dL (3.4-5.0); Anion Gap 3 mmol/L (6-16); Blood Urea Nitrogen 59 mg/dL (8-24); Bun/Creatinine Ratio 55.7 (12.0-20.0); CO2, Blood 32 mmol/L (21-32); Calcium, Blood 10.4 mg/dL (8.5-10.1); Chloride, Blood 102 mmol/L (98-108); Creatinine, Blood 1.06 mg/dL (0.60-1.20); Glomerular Filtration Rate >60 (60-); Glucose, Blood 105 mg/dL (70-99); Magnesium, Blood 1.3 mg/dL (1.6-2.4); Phosphorus, Blood 4.5 mg/dL (2.5-4.9); Sodium, Blood 137 mmol/L (136-145)
--- NOTE | 2021-05-01 18:47 | NUR ---
SHIFT SUMMARY PT A/O X4 AND COOPERATIVE OF CARE. PT ANXIOUS AT TIMES OVER HIS VITALS. VSS/T/O SHIFT WITH O2 SATS > 92% ON 3L NC. PT HAD SOME PAUSES IN HEART RHYTHM, RHYTHM STRIPS IN CHART. NO REPORTS OF CHEST PAIN/PRESSURE T/O SHIFT. PT WAS UP IN ROOM WITH GAIT BELT AND A WALKER TO TRANSFER TO RECLINER WITH THIS RN AND PHYSICAL THERAPIST ASSISTING, TOLERATED FAIR WITH O2 SATS DROPPING TO UPPER 80'S. PT REPORTED PAIN IN BACK WHILE SITTING IN RECLINER, REPOSITIONED TO COMFORT.PT WAS ABLE TO TAKE ORAL MEDS WITH APPLE SAUCE. PT WOULD NEED NC IN MOUTH WHILE SLEEPING TO KEEP O2 SATS UP.
--- NOTE | 2021-05-01 22:16 | NUR ---
ASSUMED CARE OF PATIENT AT APPROXIMATELY 1910 FROM ANJANA Haji RN. PATIENT ALERT AND ORIENTED X4; SLOW TO RESPOND AT TIMES; WEAK. PATIENT DENIES PAIN EXCEPT IN LEFT FOOT WHEN MOVED. PATIENT REPORT CHRONIC N/T. Q2H TURNS; MAX ASSIST OUT OF BED PER REPORT. PATIENT DENIES DIZZINESS OR NAUSEA. PILLS IN APPLESAUCE; NO STRAWS. ST ON TELE; PER REPORT CAN GO INTO 2ND DEGREE HB WHEN SLEEPING; OXYGEN SATURATION ABOVE 90% ON 4LPM VIA NC; NEEDS TO BE PUT IN MOUTH WHEN SLEEPING; PATIENT NOT ABLE TO TOLERATE CPAP. PG S/L.
[2021-05-02 03:41] LABS: Hematocrit 29.1 % (37.0-53.0); Hemoglobin 8.5 g/dL (13.5-17.5)
[2021-05-02 04:04] LABS: Magnesium, Blood 1.6 mg/dL (1.6-2.4)
[2021-05-02 04:05] LABS: Albumin, Blood 2.6 g/dL (3.4-5.0); Anion Gap 2 mmol/L (6-16); Blood Urea Nitrogen 43 mg/dL (8-24); Bun/Creatinine Ratio 46.2 (12.0-20.0); CO2, Blood 35 mmol/L (21-32); Calcium, Blood 10.4 mg/dL (8.5-10.1); Chloride, Blood 101 mmol/L (98-108); Creatinine, Blood 0.93 mg/dL (0.60-1.20); Glomerular Filtration Rate >60 (60-); Glucose, Blood 108 mg/dL (70-99); Phosphorus, Blood 3.8 mg/dL (2.5-4.9); Potassium, Blood 4.8 mmol/L (3.5-5.5); Sodium, Blood 138 mmol/L (136-145)
--- NOTE | 2021-05-02 05:38 | NUR ---
PATIENT SLEPT ABOUT SIX HOURS; MOVED NC INTO MOUTH WHEN SLEEPING; OXYGEN SATURATION DROPPED TO 89%; RECOVERED QUICKLY; BUSINESS DEVELOPMENT CONSULTANT CALLED TO REPORT PATIENT HEART RATE IN 120'S MOST OF THE NIGHT AND WOULD DROP TO THE 49-60 FOR <SECOND AND JUMP BACK UP TO 120'S; NO PAUSES THIS SHIFT. NO OTHER ACUTE CHANGES TO REPORT; MEPILEX TO COCCYX CHANGED. INCONTINENT OF URINE T/O SHIFT; ATTENDS IN PLACE.
--- NOTE | 2021-05-02 17:55 | NUR ---
SHIFT SUMMARY PT A/O X4 AND COOPERATIVE OF CARE. PT HR TACHY IN THE 120'S T/O SHIFT, OTHER VSS T/O SHIFT WITH O2 SATS >90% ON 4L NC. PT WAS UP IN ROOM WITH PHYSICAL THERAPY, TOLERATED FAIR, O2 SATS MAINTAINED IN THE 90'S WHILE WORKING WITH PHYSICAL THERAPY. NO COMPLAINTS OF CHEST PAIN/PRESSURE T/O SHIFT. NO HEART PAUSES NOTED THIS SHIFT.
--- NOTE | 2021-05-02 21:35 | NUR ---
ASSUMED CARE OF PATIENT AT APPROXIMATELY 1910 FROM ANJANA Haji RN. PATIENT ALERT AND ORIENTED X4; SLOW TO RESPOND AT TIMES; WEAK; TURNS FROM SIDE TO SIDE FOR ATTENDS CHANGES FOR URINE INCONTINENCE. PATIENT DENIES PAIN EXCEPT IN LEFT FOOT WHEN MOVED. PATIENT REPORT CHRONIC N/T. Q2H TURNS; MAX ASSIST OUT OF BED PER REPORT. PATIENT DENIES DIZZINESS OR NAUSEA. PILLS IN APPLESAUCE; NO STRAWS. ST ON TELE; PER REPORT CAN GO INTO 2ND DEGREE HB WHEN SLEEPING; NO PAUSES IN OVER 24 HOURS; OXYGEN SATURATION ABOVE 90% ON 4LPM VIA NC; NEEDS TO BE PUT IN MOUTH WHEN SLEEPING; PATIENT NOT ABLE TO TOLERATE CPAP. PG S/L.
--- NOTE | 2021-05-03 06:11 | NUR ---
CALLED DR. ANAYA TO REPORT MULTIPLE PAUSES SINCE 429; LONGEST 3.9 SECONDS; PATIENT SLEEPING VERY SOUND; DESATS TO 85% AT TIMES; NO OTHER SYMPTOMS. ORDERS FOR LABS.
[2021-05-03 07:21] LABS: Anion Gap 4 mmol/L (6-16); Blood Urea Nitrogen 30 mg/dL (8-24); Bun/Creatinine Ratio 43.5 (12.0-20.0); CO2, Blood 35 mmol/L (21-32); Calcium, Blood 10.5 mg/dL (8.5-10.1); Chloride, Blood 101 mmol/L (98-108); Creatinine, Blood 0.69 mg/dL (0.60-1.20); Glomerular Filtration Rate >60 (60-); Glucose, Blood 106 mg/dL (70-99); Magnesium, Blood 1.5 mg/dL (1.6-2.4); Sodium, Blood 140 mmol/L (136-145)
--- NOTE | 2021-05-03 11:44 | NUR ---
PATIENT ALERT AND ORIENTED X4. ABLE TO MOVE ALL EXTREMITIES. WEAKNESS OVERALL. FOOT DROP TO LEFT FOOT THAT PER PATIENT IS IMPROVING. NUMBNESS TO LEFT FOOT AND PAIN UPON PALPATION. WEARING LEFT FOOT BOOT NEEDED. PERRLA. BILATERAL DAIRY BAR MANAGER STRENGTH. ON 2-4L O2 VIA NC NEEDED WITH ACTIVITY. SOB WITH EXERTION. OCCASIONAL COUGH. LUNGS SOUNDING CLEAR AND DIM IN BASES. POST TRACH REMOVAL SITE HEALING WNL. TELE SHOWING SINUS TACH THIS AM WITH HR 120-130'S. NO PAUSES THIS AM. DR. ANGUIANO IN TO DISCUSS PACER PLACEMENT. PATIENT ANXIOUS AND EMOTIONAL. DENIES CHEST PAIN/PRESSURE. VITAL SIGNS STABLE. DENIES ABDOMINAL PAIN/NAUSEA. USING URINAL WITH ASSISTANCE NEEDED. REDNESS TO COCCYX/SACRUM AREA. MEPILEX CHANGED AND SITE CLEANED. MAG REPLACED THIS AM VIA IV INFUSION. ABLE TO TAKE MEDS ONE AT A TIME WITH APPLESAUCE. UP TO CHAIR WITH 2 PERSON ASSIST. CALL LIGHT IN REACH. WILL CONTINUE TO MONITOR.
--- NOTE | 2021-05-03 18:41 | NUR ---
SHIFT SUMMARY: NO ACUTE CHANGES, SEE PREVIOUS NOTES. NO PAUSES THIS SHIFT. WORE CPAP FOR 1.5 HOURS THIS AFTERNOON WITH 4L BLEED IN WHILE SLEEPING AND AT BEDSIDE. VERY ANXIOUS ABOUT CPAP. ON 3-4L O2 VIA NASAL CANNULA. REMAINS SINUS TACH WITH HR 120-130. SMALL BOWEL MOVEMENT THIS SHIFT. STOOL SOFTNERS GIVEN PRN. PLAN FOR MEETING TOMORROW AT 2PM WITH PIANO REGULATOR INSPECTOR AND HOSPITALIST. PATIENT STATES TONIGHT "I'LL PROBABLY JUST GET THE PACER". CONSENT IN CHART WAITING TO BE SIGNED. COCCYX WOUND CHANGED AND CLEANED 2X THIS SHIFT. Q2 TURNING AND NEEDED. IN TO VISIT TODAY. PATIENT UPSET AND SAD ABOUT THE POSSIBILITY OF GETTING A PACER PLACED. EDUCATION AND SUPPORT PROVIDED. CALL LIGHT REMAINS IN PLACE. WILL REPORT OFF TO COLLAR CUTTER RN.
[2021-05-04 03:39] LABS: Hematocrit 29.5 % (37.0-53.0); Hemoglobin 8.4 g/dL (13.5-17.5)
[2021-05-04 04:03] LABS: Albumin, Blood 2.6 g/dL (3.4-5.0); Anion Gap 2 mmol/L (6-16); Blood Urea Nitrogen 27 mg/dL (8-24); Bun/Creatinine Ratio 41.3 (12.0-20.0); CO2, Blood 36 mmol/L (21-32); Calcium, Blood 10.4 mg/dL (8.5-10.1); Chloride, Blood 101 mmol/L (98-108); Creatinine, Blood 0.65 mg/dL (0.60-1.20); Glomerular Filtration Rate >60 (60-); Glucose, Blood 112 mg/dL (70-99); Magnesium, Blood 1.5 mg/dL (1.6-2.4); Phosphorus, Blood 3.9 mg/dL (2.5-4.9); Potassium, Blood 4.4 mmol/L (3.5-5.5); Sodium, Blood 139 mmol/L (136-145)
--- NOTE | 2021-05-04 19:28 | NUR ---
SHIFT SUMMARY PT A/O X4 AND COOPERATIVE OF CARE. PT NPO FOR MOST OF DAY AWAITNG PACEMAKER PLACEMENT. VSS WITH O2 SATS >96% ON 4L NC T/O SHIFT. NO REPORTS OF CHEST PAIN/PRESSURE T/O SHIFT. PT HAD PACEMAKER PLACED AROUND 1600. PT DIAPHORETIC AND CLAMMY UPON RETURN FROM PACER PLACEMENT. SURGICAL DRESSING NOT FULLY ADHERING TO PT DUE TO CLAMMY SKIN. PT HAD TWO ELIMINATIONS IN ATTENDS, ONE WITH SCANT AMOUNT OF STOOL.
[2021-05-05 04:21] LABS: Hematocrit 29.4 % (37.0-53.0); Hemoglobin 8.2 g/dL (13.5-17.5)
[2021-05-05 05:05] LABS: Albumin, Blood 2.6 g/dL (3.4-5.0); Anion Gap 4 mmol/L (6-16); Blood Urea Nitrogen 25 mg/dL (8-24); Bun/Creatinine Ratio 38.2 (12.0-20.0); CO2, Blood 37 mmol/L (21-32); Calcium, Blood 10.3 mg/dL (8.5-10.1); Chloride, Blood 99 mmol/L (98-108); Creatinine, Blood 0.65 mg/dL (0.60-1.20); Glomerular Filtration Rate >60 (60-); Glucose, Blood 115 mg/dL (70-99); Magnesium, Blood 1.7 mg/dL (1.6-2.4); Phosphorus, Blood 4.1 mg/dL (2.5-4.9); Potassium, Blood 4.8 mmol/L (3.5-5.5); Sodium, Blood 140 mmol/L (136-145)
--- NOTE | 2021-05-05 06:09 | NUR ---
SHIFT SUMMARY NO ACUTE CHANGES THIS SHIFT. PT A&OX4. SP02>92% ON 4L NC. TELEMETRY READS SINUS TACH, HR MOSTLY 120'S. HEARTRATE DID DROP LOW ENOUGH FOR PACER TO SPIKE WHILE PT WAS SLEEPING. PT POST PACER, DRESSING CHANGED THIS SHIFT. PT INCONTINENT THIS SHIFT. C/D ATTENDS IN PLACE. NO BM, PT GIVEN STOOL SOFTENER. PT C/O OF PAIN, MEDICATED W/ ROXICODONE PER EMAR X1. PT REFUSED ICE/HEAT PAD ON SURGICAL SITE. PT REFUSED REPOSITIONING. CALL LIGHT IN REACH.
--- NOTE | 2021-05-05 10:56 | NUR ---
Spiritual care visit conducted. Patient explains about the insertion of a pacemaker and how the recovery is going from that surgery. He also expresses his concerns about going to a rehabilitation facility because of how sore and weak he is. He is concerned he will be pushed to hard to fast. I explain about the trained professionals who will monitor him closely and only push him at safe and well executed intervals. We also discuss his family, his concerns over the finances and his struggles with feeling down at times during his recovery. I listen empathically, reinforce helpful attitudes and provide spiritual guidance and prayer. Patient responds well and shows signs of a deeper resolve and increased peace about moving forward.
--- NOTE | 2021-05-05 18:55 | NUR ---
SHIFT SUMMARY PT A/OX4, ANXIOUS AT TIMES. VSS T/O SHIFT WITH O2 SATS >92% ON 4L NC. PT REPORTS POST PACER PLACEMENT PAIN OF HIS LEFT SHOULDER,TREATED PER EMAR. PT ANXIOUS ABOUT VITALS AND ABOUT BEING DISCHARGED TO PHYSICAL THERAPY. PT EXPRESSED CONCERN OF WEAKNESS FROM PACER PLACEMENT. PT HAD A COUPLE VOIDS IN ATTENDS, PT CLEANED AND ATTENDS IN PLACE.
[2021-05-06 05:09] LABS: BASOPHILS PERCENT AUTO 1 % (0-2); EOSINOPHILS ABSOLUTE AUTO 0.26 K/mm3 (0.00-0.68); EOSINOPHILS PERCENT AUTO 2 % (0-6); Hematocrit 29.1 % (37.0-53.0); Hemoglobin 8.2 g/dL (13.5-17.5); IMMATURE GRAN ABSOLUTE AUTO 0.08 K/mm3 (0.00-0.10); IMMATURE GRAN PERCENT AUTO 1 % (0-1); LYMPHOCYTES ABSOLUTE AUTO 1.25 K/mm3 (0.84-5.20); LYMPHOCYTES PERCENT AUTO 11 % (21-46); MONOCYTES PERCENT AUTO 6 % (4-13); Mean Corpuscular HGB 27.1 pg (26.0-34.0); Mean Corpuscular HGB Conc 28.2 g/dL (31.5-36.5); Mean Corpuscular Volume 96 fL (80-100); Mean Platelet Volume 8.3 fL (9.1-12.4); NEUTROPHILS ABSOLUTE AUTO 8.57 K/mm3 (1.96-9.15); NEUTROPHILS PERCENT AUTO 78 % (41-73); Platelet Count 422 K/mm3 (150-400); RDW Coefficient Variation 16.9 % (11.7-14.2); RDW Standard Deviation 59.2 fL (35.1-46.3); Red Blood Cell Count 3.03 M/mm3 (4.30-5.90); White Blood Cell Count 10.96 K/mm3 (4.00-11.30)
[2021-05-06 05:36] LABS: Magnesium, Blood 1.5 mg/dL (1.6-2.4)
[2021-05-06 05:37] LABS: Albumin, Blood 2.5 g/dL (3.4-5.0); Anion Gap 3 mmol/L (6-16); Blood Urea Nitrogen 23 mg/dL (8-24); Bun/Creatinine Ratio 41.1 (12.0-20.0); CO2, Blood 38 mmol/L (21-32); Calcium, Blood 10.8 mg/dL (8.5-10.1); Chloride, Blood 96 mmol/L (98-108); Creatinine, Blood 0.56 mg/dL (0.60-1.20); Glomerular Filtration Rate >60 (60-); Glucose, Blood 103 mg/dL (70-99); Phosphorus, Blood 2.9 mg/dL (2.5-4.9); Potassium, Blood 4.5 mmol/L (3.5-5.5); Sodium, Blood 137 mmol/L (136-145)
--- NOTE | 2021-05-06 05:39 | NUR ---
SHIFT SUMMARY NO ACUTE CHANGES THIS SHIFT. VSS. PT CONTIMNUES RANGING FROM SR/ST TO PACED INTERMITTENTLY. REMAINS ON 4-5L O2. NO BM THIS SHIFT. PT MAKING LARGE VOIDS IN BRIEF. L FOOT DROP PERSISTS BUT IMPROVED. PACEMAKER INSERTION SITE CDI WITH PRESSURE DRESSING, PAINFUL TO OUCH AND REQUIRING PAIN MANAGEMENT. PT EAGER TO BE TRANSFERRED TO REHAB. SACRAL WOUND IMPROVING. OTHERWISE, PT RESTING IN ROOM OFF AND ON. BED ALARM IN PLACE.
--- NOTE | 2021-05-06 14:30 | NUR ---
SHIFT SUMMARY; ASSUMED CARE AT 0700. A/A/OX4, 4L 02 VIA SD. VSS. ATTENDS IN PLACE FOR URGENCY. MOVES BILATERAL ARMS WITHOUT DIFFICULTY. LEFT FOOT DROP NOTED. MOVES LEGS, ALTHOUGH WEAK. PRESSURE DRESSING REMAINS IN PLACE FROM POST PACEMAKER, NO BLEEDING OR SWELLING TO AREA. TRACH SITE DRESSING C/D/I. REPORT GIVEN TO MEDICAL FLOOR RN TO ASSUME CARE FOR IN HOUSE TRANSFER.
[2021-05-07 05:54] LABS: Hematocrit 27.5 % (37.0-53.0); Hemoglobin 7.8 g/dL (13.5-17.5)
[2021-05-07 06:00] LABS: Albumin, Blood 2.4 g/dL (3.4-5.0); Anion Gap 3 mmol/L (6-16); Blood Urea Nitrogen 21 mg/dL (8-24); Bun/Creatinine Ratio 39.4 (12.0-20.0); CO2, Blood 38 mmol/L (21-32); Calcium, Blood 10.5 mg/dL (8.5-10.1); Chloride, Blood 98 mmol/L (98-108); Creatinine, Blood 0.53 mg/dL (0.60-1.20); Glomerular Filtration Rate >60 (60-); Glucose, Blood 99 mg/dL (70-99); Magnesium, Blood 1.7 mg/dL (1.6-2.4); Phosphorus, Blood 2.6 mg/dL (2.5-4.9); Potassium, Blood 4.3 mmol/L (3.5-5.5); Sodium, Blood 139 mmol/L (136-145)
--- NOTE | 2021-05-07 06:31 | NUR ---
SHIFT SUMMARY PATIENT IS A&OX4. VSS. ON 4LNC SATING MID 90'S. SLIGHTLY HYPERTENSIVE. 90'S HR BUT NOT TELE. TACHYPENIC AT TIMES. ATTEMPTED Q2H TURNS BUT OFTEN REFUSED. INCONTINENT IN BREIF. NO BM X4 DAYS AND PRN MIRALAX GIVEN. SOME DISCOMFORT BUT REFUSED ADDITIONAL INTERVENTIONS. TOLERATING CARDIAC DIET. MAX ASSIST IN ROOM. NO ACUTE CONCERNS AT THIS TIME. WILL CONTINUE PLAN OF CARE UNTIL REPORT GIVEN TO JENNY DANIEL.
--- NOTE | 2021-05-07 17:26 | NUR ---
VSS. AFEBRILE. NO C/O PAIN. INCONTINENT WITH AUO. NO BM- PRN MIRALAX X1. TOLERATING CURRENT DIET. WORKED WITH PT- STOOD EOB X3 WITH MAX ASSIST, 2 PERSON REQUIRED. NEW PACER INSERTION SITE REMAINS CLEAN,DRY, AND INTACT. FREQUENT ROUNDS TO ENSURE PT SAFETY. PT IN NO APPARENT DISTRESS AT THIS TIME. WILL CONTINUE TO MONITOR UNTIL TRANSFER OF CARE TO ONCOMING RN.
[2021-05-08 04:39] LABS: Hematocrit 28.3 % (37.0-53.0); Hemoglobin 8.1 g/dL (13.5-17.5)
[2021-05-08 04:52] LABS: Albumin, Blood 2.6 g/dL (3.4-5.0); Anion Gap 3 mmol/L (6-16); Blood Urea Nitrogen 18 mg/dL (8-24); Bun/Creatinine Ratio 30.9 (12.0-20.0); CO2, Blood 36 mmol/L (21-32); Calcium, Blood 10.7 mg/dL (8.5-10.1); Chloride, Blood 99 mmol/L (98-108); Creatinine, Blood 0.58 mg/dL (0.60-1.20); Glomerular Filtration Rate >60 (60-); Glucose, Blood 104 mg/dL (70-99); Magnesium, Blood 1.7 mg/dL (1.6-2.4); Phosphorus, Blood 2.8 mg/dL (2.5-4.9); Potassium, Blood 4.1 mmol/L (3.5-5.5); Sodium, Blood 138 mmol/L (136-145)
--- NOTE | 2021-05-08 06:01 | NUR ---
SHIFT SUMMARY PATIENT A&OX4, WITH GENERALIZED WEAKNESS AND DECONDITIONING. VSS. ON 4L NC SATING LOW 90'S. NO PAIN OR DISTRESS NOTED UPON ASSESSMENT. NO TELE IN PLACE. TOELRATING CARDIAC DIET WITHOUT ISSUE. INCONTINENT IN BRIEF. BOWEL REGIMEN AND PRN GIVEN JUST PRIOR TO SHIFT AND PATIENT COMPLAINS OF CONSTIPATION DISCOMFORT. REFUSED THE NEED FOR ENEMA AND WANTED TO LET THE OTHER MEDS WORK FIRST. ANXIETY AT TIMES. ENCOURAGED Q2H TURNS BUT PATIENT REFUSED. NO ACUTE CONCERNS AT THIS TIME. WILL CONTINUE PLAN OF CARE UNTIL REPORT GIVEN TO DAYSHIFT RN.
--- NOTE | 2021-05-08 17:47 | NUR ---
VSS. AFEBRILE. NO C/O PAIN. INCONTINENT WITH AUO. NO BM- REFUSED PRNS. TOLERATING CURRENT DIET. WORKED WITH PT- SAT IN CHAIR X1HR, UTIILIZED GAIT BELT, FWW, AND REQUIRED 2 PERSON MAX ASSIST. WORKED WITH OT- COMPLETED BED EXERCISES. TENTATIVE D/C TUESDAY TO REHABE. L ANTERIOR PACER INSERTION SITE CLEAN, DRY, INTACT, PT REPORTS SORENESS. FREQUENT ROUNDS TO ENSURE PT SAFETY. PT IN NO APPARENT DISTRESS AT THIS TIME. WILL CONTINUE TO MONITOR UNTIL TRANSFER OF CARE TO ONCOMING RN.
[2021-05-09 04:19] LABS: Hematocrit 29.1 % (37.0-53.0); Hemoglobin 8.5 g/dL (13.5-17.5)
[2021-05-09 04:45] LABS: Albumin, Blood 2.7 g/dL (3.4-5.0); Anion Gap 2 mmol/L (6-16); Blood Urea Nitrogen 22 mg/dL (8-24); Bun/Creatinine Ratio 35.6 (12.0-20.0); CO2, Blood 38 mmol/L (21-32); Calcium, Blood 11.2 mg/dL (8.5-10.1); Chloride, Blood 100 mmol/L (98-108); Creatinine, Blood 0.62 mg/dL (0.60-1.20); Glomerular Filtration Rate >60 (60-); Glucose, Blood 113 mg/dL (70-99); Magnesium, Blood 1.7 mg/dL (1.6-2.4); Phosphorus, Blood 4.5 mg/dL (2.5-4.9); Potassium, Blood 4.5 mmol/L (3.5-5.5); Sodium, Blood 140 mmol/L (136-145)
--- NOTE | 2021-05-09 06:23 | NUR ---
SHIFT SUMMARY PATIENT IS A PLESANT MAN WHO IS A&OX4 WITH SOME GENRALIZED WEAKNESS THAT IS IMPROVING. VSS. ON 4L NC SATING MID 90'S. NO PAIN OR DISTRESS NOTED UPON ASSESMENT. NO TELE IN PLACE. INCONTINENT OF BLADDER IN BRIEF. CHANGED OFTEN. NO BM YET AND PRN MIRALAX GIVEN BUT DENIED NEED FOR ADDITIONAL INTERVENTIONS OVERNIGHT. TOLERATING CARDIAC DIET WITHOUT ISSUE. NO ACUTE CONCERNS AT THIS TIME. WILL CONTINUE PLAN OF CARE UNTIL REPORT GIVEN TO JENNY DANIEL.
--- NOTE | 2021-05-09 14:14 | NUR ---
TRANSFER TO 329. REPORT CALLED TO RECEIVING RN. ALL BELONGINGS SENT WITH PT. FAMILY AT BEDSIDE AWARE OF TRANSFER. VS REMAIN STABLE, NO S/S OF DISTRESS AT THIS TIME.
--- NOTE | 2021-05-09 15:58 | NUR ---
ASSISTED PHYSICAL THERAPY TO ROLL THE PT NEW MEPILEX PLACED ON COCCYX WITH SOME PINK CREAN OVER THE SMALL SCABBED OPEN AREA.
--- NOTE | 2021-05-09 19:21 | NUR ---
SHIFT SUMMARY- PT TRANSFERED TO MEDICAL FLOOR FROM PCU. PT ASSISTED 2PA TO THE CHAIR THIS EVENING. PT C/O ABDOMINAL DISCOMFORT (LIKE CRAMPING) PER REPORT PT HAS ONLY HAD TWO VERY SMALL VERY HARD STOOLS WITH BOWEL CARE PROTOCOL. SPOKE TO DR CASTILLO AND RECIEVED ORDER TO MAKE THE STOOL SOFTENER SCHEDULED DOSE WAS INCREASED WELL. NEW PRN ORDER FOR SENNA HOWEVER SINCE THE PT IS ALREADY HAVING CRAMPING THIS WAS NOT GIVEN, DR DYE. PASSED ON TO NIGHT RN IN BEDSIDE REPORT PT HAS RECIEVED MIRALAX, DOCUSATE AND A BROWN COW (PRUNE HARDY, APPLE HARDY AND BUTTER). NO RESULT THUS FAR. BISICODYL SUPPOSITORY STILL AVAILABLE NIGHT RN AWARE. ZOFRAN GIVEN FOR SOME NAUSEA PRIOR TO PT TRANSFER TO THE CHAIR. PT HAS SOME SITUATIONAL DEPRESSION R/T HIS LONG HOSPITALIZATION, FAMILY IS AWARE AND IS VERY INVOLVED IN HELPING THE PT FEEL LIKE HE CAN DO THINGS AND TO KEEP GOING. PASSED ALL ON TO NIGHT RN IN BEDSIDE REPORT. PT CURRENTLY IN BED, CALL LIGHT IN REACH NO S&S OF DISTRESS NOTED AT THE TIME OF SHIFT CHANGE. PT FATHER AT THE BEDSIDE.
[2021-05-10 06:58] LABS: Hematocrit 28.2 % (37.0-53.0); Hemoglobin 8.1 g/dL (13.5-17.5)
[2021-05-10 07:24] LABS: Albumin, Blood 2.7 g/dL (3.4-5.0); Anion Gap 5 mmol/L (6-16); Blood Urea Nitrogen 15 mg/dL (8-24); Bun/Creatinine Ratio 27.5 (12.0-20.0); CO2, Blood 36 mmol/L (21-32); Calcium, Blood 9.7 mg/dL (8.5-10.1); Chloride, Blood 100 mmol/L (98-108); Creatinine, Blood 0.55 mg/dL (0.60-1.20); Glomerular Filtration Rate >60 (60-); Glucose, Blood 99 mg/dL (70-99); Magnesium, Blood 1.8 mg/dL (1.6-2.4); Phosphorus, Blood 3.1 mg/dL (2.5-4.9); Potassium, Blood 4.6 mmol/L (3.5-5.5); Sodium, Blood 141 mmol/L (136-145)
--- NOTE | 2021-05-10 09:00 | NUR ---
PT PLEASANT COOP A/O X3 TALKATIVE. 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 THEN COVID. GLAD TO BE ALIVE. VERY SOB WITH EXERTION. NOW 4L O2. SITS ON EDGE OF BED. H/R REG, NO MURMER NOTED. NO TELE. PACER LUCW. CDI. LUNGS CRAKLESBASES. SOV WITH EXERTION, ON 4L O2. PULSES 2/2. TRACE BLE EDEMA. BT X4 LAST BM THIS AM. VIODS INCONT ATTENDS IN PLACE. WET, CHANGED, NOW CDI. BED IN LOW POSITOIN, CALL LITE IN REACH. CALLS APPROP
--- NOTE | 2021-05-10 18:32 | NUR ---
PT VERY PLEASANT TODAY. IS SITTING AT EDGE OF BED SEVERAL TIMES DAILY. CONTINUES TO BE INCONT OF URINE. MOM IN ROOM FOR VISIT TODAY. CONTINUES TO BE ON 4L O2. NO NEW CONCERNS NOTED. 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 . 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 BEDIN LOW POSITION, CALL LITE IN REACH, CALLS APPRP
[2021-05-11 05:17] LABS: Hemoglobin 8.2 g/dL (13.5-17.5)
[2021-05-11 06:18] LABS: Albumin, Blood 2.7 g/dL (3.4-5.0); Anion Gap 7 mmol/L (6-16); Blood Urea Nitrogen 14 mg/dL (8-24); Bun/Creatinine Ratio 28.8 (12.0-20.0); CO2, Blood 34 mmol/L (21-32); Calcium, Blood 10.1 mg/dL (8.5-10.1); Chloride, Blood 100 mmol/L (98-108); Creatinine, Blood 0.49 mg/dL (0.60-1.20); Glomerular Filtration Rate >60 (60-); Glucose, Blood 99 mg/dL (70-99); Magnesium, Blood 1.7 mg/dL (1.6-2.4); Phosphorus, Blood 2.5 mg/dL (2.5-4.9); Potassium, Blood 4.7 mmol/L (3.5-5.5); Sodium, Blood 141 mmol/L (136-145)
--- NOTE | 2021-05-11 15:27 | NUR ---
Patient is lying in bed and alert. Patient immediately tells me about how discouraged that he gets and that the process of healing feeling like it is endless. After I normalize patient's feeling, we then go through the list of the amazing things that have happened along his way that that suggest that the timing of things have really worked in his favor. We also count the many victories that he has had. Patient shows signs of being encouraged. I end our time with a prayer and words of gratitude. Patient responds well and continues to be uplifted by the thought of divine intervention working on his behalf. I will continue to work on assisting with perspective, focus and emotional/spiritual support.
--- NOTE | 2021-05-11 18:29 | NUR ---
SHIFT SUMMARY PATIENT PLEASANT AND COOPERATIVE THROUGHOUT DAY. PATIENT STARTED DAY ON 4L NC. WEENED TO 2L NC. TOLERATED WELL 02 SATS >90%. PATIENT COMPLAINED OF CONSTIPATION AND TREATED PER AUG. BED IN LOW POSITION WITH CALL LIGHT IN REACH. WILL CONTINUE TO MONITOR.
--- NOTE | 2021-05-11 20:05 | NUR ---
BOOT REMOVED OF LEFT FOOT. REPOSITIONED. CALL LIGHT IN REACH
--- NOTE | 2021-05-12 04:52 | NUR ---
QUALITY CONTROL ASSOCIATE SUMMARY AWAKE AT INTERVALS THIS SHIFT. INCONT OF VOIDS ABOUT 5 TIMES, LINEN CHANGED ONE TIME DUE TO COPIOUS AMTS OF VOIDING. O2 PER NC AT 2L/MIN. ASSISTS WITH REPOSITIONING. HOB REMAINS AT 40 - 45 DEGREES AND LEGS ELEVATED. BOOT CURRENTLY OFF LEFT FOOT. CALL LIGHT IN REACH
[2021-05-12 06:05] LABS: Hematocrit 29.1 % (37.0-53.0); Hemoglobin 8.6 g/dL (13.5-17.5)
[2021-05-12 06:44] LABS: Albumin, Blood 2.8 g/dL (3.4-5.0); Anion Gap 8 mmol/L (6-16); Blood Urea Nitrogen 18 mg/dL (8-24); Bun/Creatinine Ratio 32.7 (12.0-20.0); CO2, Blood 30 mmol/L (21-32); Chloride, Blood 101 mmol/L (98-108); Creatinine, Blood 0.55 mg/dL (0.60-1.20); Glomerular Filtration Rate >60 (60-); Glucose, Blood 99 mg/dL (70-99); Magnesium, Blood 1.8 mg/dL (1.6-2.4); Potassium, Blood 4.5 mmol/L (3.5-5.5); Sodium, Blood 139 mmol/L (136-145)
--- NOTE | 2021-05-12 17:47 | NUR ---
SHIFT SUMMARY PATIENT LAYING IN BED VISITING WITH FAMILY. PATIENT HAD A VERY PRODUCTIVE DAY SITTING UP ON EDGE OF BED FOR MEALS AND WALKED TO RESTROOM WITH WALKER AND ASSISTANCE AND TOOK A SHOWER. PATIENT IS COMPLIANT WITH WEARING FOOT DROP BOOT AND TOLERATES WELL. PATIENT BEGAN USING INCENTIVE SPIROMETER TODAY WITH R/T. VITAL SIGNS STABLE WILL CONTINUE TO MONITOR.
--- NOTE | 2021-05-12 19:23 | NUR ---
AWAKE, SITTING WITH LEGS OFF BED, CONVERSING ON TELEPHONE. AFFECT CHEERFUL. NO NOTED S/S ACUTE DISTRESS. CALL LIGHT IN REACH
--- NOTE | 2021-05-13 03:42 | NUR ---
RFID SPECIALIST SUMMARY WAS MORE ACTIVE BOTH PHYSICALLY AND EMOTIONALLY BEFORE HS. NOTED SITTING ON BED, TALKING WITH FAMILY ON PHONE. HAS BEEN RESTING QUIETLY WITH FEW INTERRUPTIONS SINCE HS. CALL LIGHT IN REACH.
[2021-05-13 05:54] LABS: Hematocrit 28.5 % (37.0-53.0); Hemoglobin 8.5 g/dL (13.5-17.5)
[2021-05-13 06:26] LABS: Albumin, Blood 2.7 g/dL (3.4-5.0); Anion Gap 8 mmol/L (6-16); Blood Urea Nitrogen 21 mg/dL (8-24); Bun/Creatinine Ratio 40.4 (12.0-20.0); CO2, Blood 30 mmol/L (21-32); Calcium, Blood 11.2 mg/dL (8.5-10.1); Chloride, Blood 105 mmol/L (98-108); Creatinine, Blood 0.52 mg/dL (0.60-1.20); Glomerular Filtration Rate >60 (60-); Glucose, Blood 101 mg/dL (70-99); Magnesium, Blood 1.8 mg/dL (1.6-2.4); Phosphorus, Blood 4.1 mg/dL (2.5-4.9); Potassium, Blood 4.4 mmol/L (3.5-5.5); Sodium, Blood 143 mmol/L (136-145)
--- NOTE | 2021-05-13 17:42 | NUR ---
SHIFT SUMMARY- PT HAS HAD NO ACUTE CHANGE T/O THE SHIFT. PT HAS GAINED ALOT OF MOBILITY SINCE THIS LAST WEEKEND, HE SEEMED SUPRISED WHEN STAFF TOLD HIM HE WAS SHOWING GREAT IMPROVEMENT. PT JUST NEEDS TO BE REMINDED TO LOOK AT HOW FAR HE HAS COME IN ORDER TO HELP HIM GAIN PERSPECTIVE. PT SEEMS TO BE DISCOURAGED THAT HE IS NOT IMPROVING FASTER. LOTS OF ENCOURAGEMENT PROVIDED FOR THE PT TO PARTICIPATE. PT/OT ARE BOTH WORKING WITH THE PT. PT CURRENTLY SITTING AT THE EOB WITH THE CALL LIGHT IN REACH, NO S&S OF DISTRESS NOTED AT THIS TIME. WILL CTM AND PASS ON TO NIGHT RN IN BEDSIDE REPORT.
--- NOTE | 2021-05-14 04:10 | NUR ---
SHIFT SUMMARY PATIENT HAD NO ACUTE CHANGES. AXOX 4 AND ONE ASSIST TO BSC. POWERGLIDE DUARTE INTACT. ON 2L O2 NC. DENIES PAIN, SOB, AND N/V. VSS/AFEBRILE. TAKES MEDICATION WHOLE WITH WATER. COOPERATIVE WITH CARE. CALL LIGHT IN REACH. BED IN LOWEST POSITION. WILL CONTINUE TO MONITOR UNTIL DAY SHIFT NURSE ASSUMES CARE.
[2021-05-14 06:39] LABS: Albumin, Blood 2.6 g/dL (3.4-5.0); Calcium, Blood 10.5 mg/dL (8.5-10.1)
--- NOTE | 2021-05-14 17:26 | NUR ---
SHIFT SUMMARY PT RESTING QUIETLY AT START OF SHIFT. WOKE EASILY FOR CARE. MORBIDLY OBESE AND INCONTINENT OF BOWEL AND BLADDER. PT UNWILLING TO USE URINAL. REPORTS THAT HE CAN'T WALK D/T DROP FOOT ON L SIDE. BRACE PLACED BY THERAPY THIS AM, BUT PT WANTING IT OFF SHORTLY AFTERWARD. LUNGS T/O ARE DIMINISHED, BUT CLEAR. DRY HACKING COUGH. PT TO D/C TO REHAB TOMORROW. COVID TEST ORDERED AND SENT. IN TO VISIT THIS AFTERNOON. DRSG TO COCCYX CHANGED TONIGHT. SM AMT OF REDNESS AND SKIN BREAK DOWN ON COCCYX/BUTTOCKS. CALAZIME APPLIED UNDER MEPILEX. DENIED FURTHER NEEDS. CALL LT IN REACH.
[2021-05-14 18:14] LABS: Influenza A, PCR NEGATIVE (NEGATIVE); Influenza B, PCR NEGATIVE (NEGATIVE); Resp Syncytial Virus, PCR NEGATIVE (NEGATIVE); SARS-Cov-2 (COVID-19) PCR, MMC NEGATIVE (NEGATIVE)
--- NOTE | 2021-05-15 04:40 | NUR ---
SHIFT SUMMARY PATIENT HAD NO ACUTE CHANGES OBSERVED. AXOX 4 AND BEDREST. TAKES MEDICATION WHOLE WITH APPLESAUCE. POWERGLIDE DUARTE INTACT. LS FOOT DROP AND INCONTINENT. DENIES PAIN, SOB AND N/V. VSS/AFEBRILE. CALL LIGHT IN REACH. POSSIBLE DC TODAY. CALL LIGHT IN REACH. BED IN LOWEST POSITION. WILL CONTINUE TO MONITOR UNTIL DAY SHIFT NURSE ASSUMES CARE.
[2021-05-15] MEDS ORDERED: JUVEN PACKET1 EAC3 PO (07:38)
[2021-05-15] MEDS ORDERED: LOSA25 PO (07:38)
[2021-05-15] MEDS ORDERED: DOCU100 PO (07:38)
[2021-05-15] MEDS ORDERED: METO100 PO (07:39)
[2021-05-15] MEDS ORDERED: MIRT15 PO (07:40)
[2021-05-15] MEDS ORDERED: PREG50 PO (07:40)
--- NOTE | 2021-05-15 12:01 | NUR ---
PT IS AWAKE, A&O LYING FOWLERS WAITING FOR D/C THIS AM. PT WANTING AM MEDS BEFORE D/C. SITTING UP TO EOB FOR BREAKFAST. BOOT TO L FOOT PLACED PER PT REQUEST TO GET UP TO EOB. BELONGINGS GATHERED BY LAST NIGHT. CELL PHONE IN HAND. TRANSPORT HERE AT 0845 TO TAKE PT TO [facility] IN [place], PER REPORT. PT ABLE TO STAND AT BS AND TURN TO SIT IN W/C FOR D/C. PT LEFT ON 2L VIA NC. REPORT CALLED TO TORRI AT [phone].
== END 2021-05-15 08:58 | DRG 981 ==
LOC: PCU 11:49 → MEDS 05-09 13:33
PROVIDERS: Internal Medicine; Internal Medicine Critical Care Medicine; Internal Medicine Interventional Cardiology; Internal Medicine Nephrology; ADMIT Internal Medicine
PROC: 5A1D70Z Performance of Urinary Filtration, Intermittent, Less than 6 Hours Per Day (ICD-10-PCS; 2021-04-19)
PROC: 3E0G76Z Introduction of Nutritional Substance into Upper GI, Via Natural or Artificial Opening (ICD-10-PCS; 2021-04-19)
PROC: 05PYX3Z Removal of Infusion Device from Upper Vein, External Approach (ICD-10-PCS; 2021-04-29)
PROC: 0JH606Z Insertion of Pacemaker, Dual Chamber into Chest Subcutaneous Tissue and Fascia, Open Approach (ICD-10-PCS; principal; 2021-05-04)
PROC: 02HK3JZ Insertion of Pacemaker Lead into Right Ventricle, Percutaneous Approach (ICD-10-PCS; 2021-05-04)
PROC: 02H63JZ Insertion of Pacemaker Lead into Right Atrium, Percutaneous Approach (ICD-10-PCS; 2021-05-04)
DX: U07.1 COVID-19 (principal); N18.6 End stage renal disease; J96.01 Acute respiratory failure with hypoxia; Z68.41 Body mass index [BMI] 40.0-44.9, adult; I82.411 Acute embolism and thrombosis of right femoral vein; E87.1 Hypo-osmolality and hyponatremia; F05 Delirium due to known physiological condition; J93.9 Pneumothorax, unspecified; I12.0 Hypertensive chronic kidney disease with stage 5 chronic kidney disease or end stage renal disease; N17.9 Acute kidney failure, unspecified; Z66 Do not resuscitate; E86.9 Volume depletion, unspecified; R13.10 Dysphagia, unspecified; D63.1 Anemia in chronic kidney disease; R45.1 Restlessness and agitation; E83.52 Hypercalcemia; I44.1 Atrioventricular block, second degree; I49.3 Ventricular premature depolarization; I49.5 Sick sinus syndrome; G47.33 Obstructive sleep apnea (adult) (pediatric); E83.42 Hypomagnesemia; E87.70 Fluid overload, unspecified; E88.09 Other disorders of plasma-protein metabolism, not elsewhere classified; E87.5 Hyperkalemia; M21.372 Foot drop, left foot; F43.21 Adjustment disorder with depressed mood; E83.41 Hypermagnesemia; G62.9 Polyneuropathy, unspecified; E66.01 Morbid (severe) obesity due to excess calories; Z95.828 Presence of other vascular implants and grafts; Z99.2 Dependence on renal dialysis; Z93.0 Tracheostomy status; Z79.899 Other long term (current) drug therapy
CPT/HCPCS: 0241U; 31720; 33208; 71045; 71046; 74230; 76770; 80048; 80053; 80069; 80074; 81050; 82040; 82248; 82310; 82330; 82550; 82728; 82784; 82947; 83516; 83520; 83540; 83550; 83735; 83970; 84100; 84156; 84165; 84166; 84443; 84550; 85014; 85018; 85025; 85379; 86038; 86256; 86317; 86334; 86335; 92526; 92610; 92611; 93005; 93010; 93306; 94660; 94760; 94762; 97110; 97112; 97116; 97162; 97164; 97166; 97530; 97535; 99152; 99153; A9270; C1751; C1785; C1894; C1898; J0360; J0630; J0690; J0881; J1644; J1650; J2060; J2250; J2405; J3010; J3475; J7030; J7040

== ENCOUNTER 2021-06-17 15:05 | Inpatient (IN) | payer BC ==
[~2021-06-17] VITALS: Ht 175.3 cm; Wt 125.3 kg
[~2021-06-17 15:05] MED LIST changes: +ACETAMINOPHEN500 M2 PT; +ALBU2.5V5 INH; +ALPR.5 PO; +ATROPINE IV; +B COMPLEX FORM0.4 MG PT; +BISA10S PR; +DOCU100 PO; +DOCUZEN 8.6-501 EACH PT; +ELIQUIS5 M2 PO; +GABAPENTIN250 MG/51 PT; +GENTEAL TEARS3.5 GM BOTHEYES; +HYDRALAZINE IV; +JUVEN PACKET1 EAC3 PO; +LIDOCAINE 4% TOP; +LOSA25 PO; +MELA3 PT; +MENTHOL-ZINC OXIDE TOP; +METO100 PO; +MIRALAX17 G3 PT; +MIRT15 PO; +OXYC5 PT; +PERIDEX15 ML PO; +PREG50 PO; +Q-Tussin100 MG/5 M PO; +QUETIAPINE FUMA50 M2 PT; +SEVELAMER CARB PT; +ZINC OXIDE57 GM TOP; +ZOFRAN IV; +[UNRECOGNIZED DRUG - CODE] SC
[2021-06-17 15:48] LABS: BASOPHILS ABSOLUTE AUTO 0.05 K/mm3 (0.00-0.23); BASOPHILS PERCENT AUTO 1 % (0-2); EOSINOPHILS ABSOLUTE AUTO 0.16 K/mm3 (0.00-0.68); EOSINOPHILS PERCENT AUTO 2 % (0-6); Hematocrit 36.3 % (37.0-53.0); Hemoglobin 10.2 g/dL (13.5-17.5); IMMATURE GRAN ABSOLUTE AUTO 0.02 K/mm3 (0.00-0.10); IMMATURE GRAN PERCENT AUTO 0 % (0-1); LYMPHOCYTES ABSOLUTE AUTO 0.77 K/mm3 (0.84-5.20); LYMPHOCYTES PERCENT AUTO 10 % (21-46); MONOCYTES ABSOLUTE AUTO 0.86 K/mm3 (0.16-1.47); MONOCYTES PERCENT AUTO 11 % (4-13); Mean Corpuscular HGB 29.7 pg (26.0-34.0); Mean Corpuscular HGB Conc 28.1 g/dL (31.5-36.5); Mean Corpuscular Volume 106 fL (80-100); Mean Platelet Volume 8.8 fL (9.1-12.4); NEUTROPHILS ABSOLUTE AUTO 5.98 K/mm3 (1.96-9.15); NEUTROPHILS PERCENT AUTO 76 % (41-73); Platelet Count 298 K/mm3 (150-400); RDW Coefficient Variation 16.3 % (11.7-14.2); RDW Standard Deviation 63.7 fL (35.1-46.3); Red Blood Cell Count 3.43 M/mm3 (4.30-5.90); White Blood Cell Count 7.84 K/mm3 (4.00-11.30)
[2021-06-17 16:08] LABS: Alanine Aminotransfer (ALT/SGP 25 U/L (12-78); Albumin, Blood 2.9 g/dL (3.4-5.0); Albumin/Globulin Ratio 0.6 (0.8-1.8); Alk Phos 72 U/L (50-136); Anion Gap 8 mmol/L (6-16); Aspartate Aminotrans (AST/SGOT 18 U/L (12-37); Bilirubin, Total 0.4 mg/dL (0.1-1.0); Blood Urea Nitrogen 16 mg/dL (8-24); Bun/Creatinine Ratio 17.5 (12.0-20.0); CO2, Blood 27 mmol/L (21-32); Calcium, Blood 9.8 mg/dL (8.5-10.1); Chloride, Blood 105 mmol/L (98-108); Creatinine, Blood 0.92 mg/dL (0.60-1.20); Globulin, Blood 4.6 g/dL (2.2-4.0); Glomerular Filtration Rate >60 (60-); Glucose, Blood 113 mg/dL (70-99); Potassium, Blood 4.3 mmol/L (3.5-5.5); Sodium, Blood 140 mmol/L (136-145); Total Protein, Blood 7.5 g/dL (6.4-8.2)
[2021-06-17] MEDS ORDERED: DILT180 PO (17:17)
[2021-06-17] MEDS ORDERED: SYMBICORT 80-10.2 GM INH (17:18)
[2021-06-17] MEDS ORDERED: SYMBICORT 80-10.2 GM (17:18)
[2021-06-17 19:31] LABS: Influenza A, PCR NEGATIVE (NEGATIVE); Influenza B, PCR NEGATIVE (NEGATIVE); Resp Syncytial Virus, PCR NEGATIVE (NEGATIVE); SARS-Cov-2 (COVID-19) PCR, MMC NEGATIVE (NEGATIVE)
[2021-06-17 23:32] LABS: Base Excess Venous 9.2 mmol/L; Bicarbonate Venous 31.4 mmol/L (24.0-30.0); PCO2 Venous 63.5 mmHg (38-42); PO2 Venous 60.9 mmHg (38-42); pH Blood Venous 7.35 (7.34-7.37)
[2021-06-18 04:42] LABS: Hematocrit 30.5 % (37.0-53.0); Hemoglobin 9.2 g/dL (13.5-17.5); Mean Corpuscular HGB 29.5 pg (26.0-34.0); Mean Corpuscular HGB Conc 30.2 g/dL (31.5-36.5); Mean Platelet Volume 8.7 fL (9.1-12.4); Platelet Count 252 K/mm3 (150-400); RDW Coefficient Variation 16.3 % (11.7-14.2); RDW Standard Deviation 57.9 fL (35.1-46.3); Red Blood Cell Count 3.12 M/mm3 (4.30-5.90); White Blood Cell Count 7.28 K/mm3 (4.00-11.30)
[2021-06-18 05:20] LABS: Anion Gap 4 mmol/L (6-16); Blood Urea Nitrogen 13 mg/dL (8-24); Bun/Creatinine Ratio 19.8 (12.0-20.0); CO2, Blood 33 mmol/L (21-32); Calcium, Blood 9.9 mg/dL (8.5-10.1); Chloride, Blood 105 mmol/L (98-108); Creatinine, Blood 0.66 mg/dL (0.60-1.20); Glomerular Filtration Rate >60 (60-); Glucose, Blood 117 mg/dL (70-99); Magnesium, Blood 2.4 mg/dL (1.6-2.4); Potassium, Blood 4.2 mmol/L (3.5-5.5); Sodium, Blood 142 mmol/L (136-145)
--- NOTE | 2021-06-18 05:40 | NUR ---
PT ADMITTED TO ROOM ICU 14 FROM ED. SLIDE TRANSFERRED TO BED FROM [facility]. PT ALERT AND ORIENTED. PLEASANT AND COOPERATIVE WITH CARE AND ASSESSMENT. PT TO ROOM AT 0410 THIS AM. AERVO IN PLACE AT 40 L/M FIO2 76. PT MAINTAINS > 90 PERCENT SATURATED WITH THIS EXCEPT WHEN PT IS ASLEEP. HAS A SLEEP APNEIC PATTERN. DESATURATIONS BRIEFLY TO MID 80'S. PT HAS FREQUENT DRY COUGH. NON PRODUCTIVE. GOOD HISTORIAN. DOES HAVE SOME BIBASALAR CRACKLES. WILL CONTINUE TO MONITOR PT. WILL REPORT OFF TO ONCOMING RN.
[2021-06-18 05:53] LABS: Mean Corpuscular Volume 98 fL (80-100)
--- NOTE | 2021-06-18 17:37 | NUR ---
PT BP THROUGHTOUT THE DAY HAS BEEN IN LTHE LOW 100S AND NOT UNTIL THIS EVENING, HAS COME UP TO A LEVEL TO TOLL. METOP AND CARDIZEN MEDICATIONS. PT GIVEN HIS 100MG METOP AT 1715. WILL PASS ON TO EXPLOSIVE TECHNICIAN AND WILL CONTINUE TO MONITOR.
[2021-06-19 08:13] LABS: BASOPHILS ABSOLUTE AUTO 0.03 K/mm3 (0.00-0.23); BASOPHILS PERCENT AUTO 0 % (0-2); EOSINOPHILS ABSOLUTE AUTO 0.19 K/mm3 (0.00-0.68); EOSINOPHILS PERCENT AUTO 3 % (0-6); Hematocrit 31.5 % (37.0-53.0); Hemoglobin 9.5 g/dL (13.5-17.5); IMMATURE GRAN ABSOLUTE AUTO 0.02 K/mm3 (0.00-0.10); IMMATURE GRAN PERCENT AUTO 0 % (0-1); LYMPHOCYTES PERCENT AUTO 8 % (21-46); MONOCYTES ABSOLUTE AUTO 0.85 K/mm3 (0.16-1.47); MONOCYTES PERCENT AUTO 12 % (4-13); Mean Corpuscular HGB 29.6 pg (26.0-34.0); Mean Corpuscular HGB Conc 30.2 g/dL (31.5-36.5); Mean Corpuscular Volume 98 fL (80-100); Mean Platelet Volume 8.9 fL (9.1-12.4); NEUTROPHILS PERCENT AUTO 77 % (41-73); Platelet Count 279 K/mm3 (150-400); RDW Standard Deviation 58.1 fL (35.1-46.3); Red Blood Cell Count 3.21 M/mm3 (4.30-5.90); White Blood Cell Count 7.19 K/mm3 (4.00-11.30)
[2021-06-19 08:27] LABS: Anion Gap 3 mmol/L (6-16); Blood Urea Nitrogen 12 mg/dL (8-24); Bun/Creatinine Ratio 18.8 (12.0-20.0); CO2, Blood 38 mmol/L (21-32); Calcium, Blood 10.5 mg/dL (8.5-10.1); Chloride, Blood 100 mmol/L (98-108); Creatinine, Blood 0.64 mg/dL (0.60-1.20); Glomerular Filtration Rate >60 (60-); Glucose, Blood 98 mg/dL (70-99); Magnesium, Blood 2.2 mg/dL (1.6-2.4); Potassium, Blood 4.6 mmol/L (3.5-5.5); Sodium, Blood 141 mmol/L (136-145)
--- NOTE | 2021-06-19 11:15 | NUR ---
Patient is sitting on the EOB and alert. Pt tells me about how discouraged he is by being back in the hospital after months of being in the hospital and a SNF and only being home 3 days. He talks about how his is also struggling. I spend a great deal of time reviewing with Mr. Abraham all he has accomplished, overcome and is able to do now that he could not have done just a few weeks ago. We explore sources of meaning, purpose and the power of clear goal setting. We look at the spiritual/emotional areas of his life and how to bolster his mood and thoughts even in the midst of uncertainty of what his medical issues are. I reinforce helpful attitudes and practices and provide therapeutic listening, gentle middle school counselor and prayer. Patient responds well and shows signs of greater peace and an elevated mood.
--- NOTE | 2021-06-19 19:40 | NUR ---
CARE ASSUMPTION PT SITTING AT SIDE OF BED ON AIRVO 40L 66% FIO2. PT IS AXO X4. PT DESATTING W MOVEMENT. PT DENIES ANY PAIN OR NAUSEA. PT HAS NON PRODUCTIVE COUGH. BP WNL. AFEBRILE W TEMP OF 99.1. TELE SHOWING SR IN THE 80'S W ST IN THE 100'S W ACTIVITY.
--- NOTE | 2021-06-20 00:07 | NUR ---
UPDATE PT MAINTAINING O2 SATS >94% ON AIRVO 40L AND 40% FIO2 SO SHE WAS PLACED ON 13L NC AND CONTINUES TO HAVE O2 SATS 95-97%.
[2021-06-20 03:35] LABS: BASOPHILS ABSOLUTE AUTO 0.04 K/mm3 (0.00-0.23); BASOPHILS PERCENT AUTO 1 % (0-2); EOSINOPHILS ABSOLUTE AUTO 0.24 K/mm3 (0.00-0.68); EOSINOPHILS PERCENT AUTO 5 % (0-6); Hematocrit 28.1 % (37.0-53.0); Hemoglobin 8.7 g/dL (13.5-17.5); IMMATURE GRAN ABSOLUTE AUTO 0.01 K/mm3 (0.00-0.10); IMMATURE GRAN PERCENT AUTO 0 % (0-1); LYMPHOCYTES PERCENT AUTO 17 % (21-46); MONOCYTES ABSOLUTE AUTO 0.73 K/mm3 (0.16-1.47); MONOCYTES PERCENT AUTO 14 % (4-13); Mean Corpuscular Volume 97 fL (80-100); Mean Platelet Volume 8.9 fL (9.1-12.4); NEUTROPHILS ABSOLUTE AUTO 3.39 K/mm3 (1.96-9.15); NEUTROPHILS PERCENT AUTO 64 % (41-73); Platelet Count 267 K/mm3 (150-400); RDW Coefficient Variation 15.9 % (11.7-14.2); RDW Standard Deviation 56.1 fL (35.1-46.3); White Blood Cell Count 5.31 K/mm3 (4.00-11.30)
[2021-06-20 03:52] LABS: Anion Gap 3 mmol/L (6-16); Blood Urea Nitrogen 15 mg/dL (8-24); Bun/Creatinine Ratio 22.1 (12.0-20.0); CO2, Blood 37 mmol/L (21-32); Calcium, Blood 9.9 mg/dL (8.5-10.1); Chloride, Blood 102 mmol/L (98-108); Creatinine, Blood 0.68 mg/dL (0.60-1.20); Glomerular Filtration Rate >60 (60-); Glucose, Blood 106 mg/dL (70-99); Potassium, Blood 4.1 mmol/L (3.5-5.5); Sodium, Blood 142 mmol/L (136-145)
--- NOTE | 2021-06-20 06:22 | NUR ---
HANDBOOK WRITER SUMMARY PT IS AXO X4 AND USES HIS CALL LIGHT TO MAKE HIS NEEDS KNOWN. PT BEGAN SHIFT W AIRVO 40L 70% FIO2 HOWEVER HIS O2 NEEDS HAVE SLOWLY WENT UP NOW REQUIRING 50L 80% FIO2. PT AWAKE FIRST HALF OF SHIFT AND AFTER GOING TO SLEEP BEGAN HAVING APNEIC EPISODES, RT APPROACHED THE PT ABOUT THE USE OF A CPAP HOWEVER HE REFUSED SO ADDITIONAL 6L NC PLACED IN PT'S MOUTH W MODERATE RESULTS. BP WNL. PT'S HR HAS REMAINED IN SR BUT HIS RATE HAS FLUCTUATED FROM 60 WHILE ASLEEP TO 101 WHEN AWAKE. PT AFEBRILE THIS SHIFT.
--- NOTE | 2021-06-20 10:39 | NUR ---
ASSUMED CARE OF PT FROM NETWORK SYSTEMS ADMINISTRATOR. REPORT GIVEN AND PT ASSESSMENT PERFORMED SHORTLY AFTER. NO SIG. UPDATES OR CHANGES IN PT CONDITION OVERNIGHT OR FROM PREVIOUS SHIFT. PT RESTING COMFORTABLE AND IN NO DISTRESS, ON AIRVO, 50LT, 70%, SATS IN THE 90'S. WILL CONTINUE TO MONITOR.
--- NOTE | 2021-06-20 12:31 | NUR ---
PT UP TO CHAIR FOR LUNCH. CURRENT AIRVO SETTINGS 50LT, 60%. PT IN GOOD SPIRITS AND TOLL CHAIR WELL. PT CONTINUES TO DESAT ON EXCERTION BUT RECOVERS WELL IN SHORT TIME. WILL CONTINUE TO MONITOR.
--- NOTE | 2021-06-20 18:46 | NUR ---
PT CONTINUES ON AIRVO AT 50LT AND INCREASED AT 1830 AFTER RETURNING TO BED FOR LOW SAT. PT HAS HAD A GOOD DAY OND CONTINUES TO BE PLESENT AND IN GOOD SPIRITS. HERE THIS AFTERNOON WELL. PT COMPLAINT OF DRY BLOCKED NOSE SO ORDER WAS PLACED FOR FLONAISE TO BE GIVEN. VITALS WNL.
--- NOTE | 2021-06-20 20:48 | NUR ---
CARE ASSUMPTION PT SITTING IN BED IN NO DISTRESS. PT IS AXOX 4 AND COMMUNICATING WELL WITH STAFF. O2 SATS >92% ON AIRVO 50L W 57% FIO2. BP WNL. TELE SHOWING SR IN THE 90'S. PT AFEBRILE W A TEMP OF 99.0. LS ARE COARSE W OCCASIONAL DRY COUGH. PT DENYING OTHER NEEDS AT THIS TIME.
[2021-06-21 03:34] LABS: Hematocrit 30.3 % (37.0-53.0); Hemoglobin 9.2 g/dL (13.5-17.5); Mean Corpuscular HGB 29.6 pg (26.0-34.0); Mean Corpuscular HGB Conc 30.4 g/dL (31.5-36.5); Mean Corpuscular Volume 97 fL (80-100); Mean Platelet Volume 8.8 fL (9.1-12.4); Platelet Count 288 K/mm3 (150-400); RDW Coefficient Variation 15.9 % (11.7-14.2); RDW Standard Deviation 56.7 fL (35.1-46.3); Red Blood Cell Count 3.11 M/mm3 (4.30-5.90); White Blood Cell Count 7.52 K/mm3 (4.00-11.30)
[2021-06-21 03:52] LABS: Alanine Aminotransfer (ALT/SGP 23 U/L (12-78); Albumin/Globulin Ratio 0.7 (0.8-1.8); Alk Phos 65 U/L (50-136); Anion Gap 2 mmol/L (6-16); Aspartate Aminotrans (AST/SGOT 14 U/L (12-37); Bilirubin, Total 0.2 mg/dL (0.1-1.0); Blood Urea Nitrogen 13 mg/dL (8-24); CO2, Blood 37 mmol/L (21-32); Chloride, Blood 101 mmol/L (98-108); Creatinine, Blood 0.57 mg/dL (0.60-1.20); Globulin, Blood 4.4 g/dL (2.2-4.0); Glomerular Filtration Rate >60 (60-); Glucose, Blood 115 mg/dL (70-99); Potassium, Blood 4.2 mmol/L (3.5-5.5); Sodium, Blood 140 mmol/L (136-145); Total Protein, Blood 7.4 g/dL (6.4-8.2)
[2021-06-21 04:04] LABS: BAND PERCENT MAN 3 % (0-8); BASOPHILS ABSOLUTE MAN 0.07 K/mm3 (0.00-0.23); BASOPHILS PERCENT MAN 1 % (0-2); EOSINOPHILS PERCENT MAN 0 % (0-6); LYMPHOCYTES % ATYPICAL MANUAL 1 % (0-0); LYMPHOCYTES ABSOLUTE MAN 0.82 K/mm3 (0.84-5.20); LYMPHOCYTES PERCENT MAN 10 % (21-46); MONOCYTES ABSOLUTE MAN 0.97 K/mm3 (0.16-1.47); MONOCYTES PERCENT MAN 13 % (4-13); NEUTROPHILS ABSOLUTE MAN 5.56 K/mm3 (1.96-9.15); PLASMA CELL ABSOLUTE MAN 0.07 K/mm3 (0.00-0.00); PLASMA CELLS PERCENT MAN 1 % (0-0); SEG NEUTROPHILS PERCENT MAN 71 % (41-73); TOTAL CELLS COUNTED 100
--- NOTE | 2021-06-21 05:51 | NUR ---
SUPERVISOR PIPELINES SUMMARY PT IS AXO X4 AND USES HIS CALL LIGHT TO MAKE HIS NEEDS KNOWN. PT MAINTAINED O2 SATS >90% ON AIRVO 50L 60% FIO2 WHEN HE IS AWAKE HOWEVER HE REQUIRED 50L AND 70% FIO2 WELL 6L NC IN HIS MOUTH WHILE HE IS ASLEEP TO MAINTAIN O2 SATS >90%, PT CONTINUES TO REFUSE TO WEAR A CPAP DESPITE ADDITIONAL EDUCATION BY RN AND RT STAFF. BP WNL AND STABLE THIS SHIFT. TELE SHOWING SR IN THE 80'S THIS SHIFT. PT AFEBRILE W A PEAK TEMP OF 99.2. PT HAD A BM THIS SHIFT AND HAD 900 ML URINE OUTPUT MEASURED THIS SHIFT W ONE UNMEASURED VOID. PT HAS DENIED ANY PAIN OR NAUSEA THIS SHIFT. WILL REPORT TO ONCOMING RN.
--- NOTE | 2021-06-21 09:09 | NUR ---
Care Assumed 0700 Pt on airvo 50 L, FIO2 68%, spo2 > 60%. When sleeping also requires 6 L NC placed in mouth. Crackles in bases. RR (30'S) and HR (110'S) elevated with movement and when eating breakfast. A/O to location, event, and following directions. States having 3/10 headache that started this morning, treated per emar. NSR. BP stable. Dr. Dillon, Dr. Anton, and Dr. Sargent in to see patient this morning. No new orders recieved. Pt has call light within reach.
--- NOTE | 2021-06-21 16:14 | NUR ---
Update- Provider visit Dr. Sargent in to see patient. Updated on patient, crackles in bases. Furosemide 40 mg dose increased to TID. Patient at bedside and updated on current care as well.
--- NOTE | 2021-06-21 17:23 | NUR ---
Shift Summary Airvo Seetings: 50 L, FIO2 55%, SPO2 > 90%, crackles T/O. A/O X 4. Sitting in chair for majority of the day. Able to use urinal and independent in room. VSS. NSR. Will report to nightshift.
[2021-06-21 19:36] LABS: Vancomycin, Trough 25.3 ug/mL (5.0-10.0)
--- NOTE | 2021-06-21 20:45 | NUR ---
CARE ASSUMPTION PT IS SITTING IN THE CHAIR WATCHING TV AND SPEAKING TO HIS S/O ON HIS CELL PHONE. PT IN NO DISTRESS AND O2 STA >94% ON AIRVO 50L AND 54% FIO2. BP WNL AND TELE SHOWING SR 90'S- ST 104. PT DENYING ANY PAIN OR NAUSEA AT THIS TIME.
[2021-06-22 04:15] LABS: Hematocrit 35.3 % (37.0-53.0); Hemoglobin 10.5 g/dL (13.5-17.5); Mean Corpuscular HGB Conc 29.7 g/dL (31.5-36.5); Mean Corpuscular Volume 98 fL (80-100); Mean Platelet Volume 8.7 fL (9.1-12.4); Platelet Count 364 K/mm3 (150-400); RDW Coefficient Variation 15.2 % (11.7-14.2); RDW Standard Deviation 54.4 fL (35.1-46.3); Red Blood Cell Count 3.62 M/mm3 (4.30-5.90); White Blood Cell Count 9.97 K/mm3 (4.00-11.30)
[2021-06-22 04:35] LABS: Alanine Aminotransfer (ALT/SGP 28 U/L (12-78); Albumin, Blood 3.5 g/dL (3.4-5.0); Albumin/Globulin Ratio 0.7 (0.8-1.8); Alk Phos 73 U/L (50-136); Anion Gap 4 mmol/L (6-16); Aspartate Aminotrans (AST/SGOT 15 U/L (12-37); Bilirubin, Total 0.3 mg/dL (0.1-1.0); Blood Urea Nitrogen 18 mg/dL (8-24); Bun/Creatinine Ratio 25.6 (12.0-20.0); CO2, Blood 37 mmol/L (21-32); Calcium, Blood 10.5 mg/dL (8.5-10.1); Chloride, Blood 100 mmol/L (98-108); Glomerular Filtration Rate >60 (60-); Glucose, Blood 135 mg/dL (70-99); Potassium, Blood 4.7 mmol/L (3.5-5.5); Sodium, Blood 141 mmol/L (136-145); Total Protein, Blood 8.5 g/dL (6.4-8.2)
[2021-06-22 05:41] LABS: BAND PERCENT MAN 2 % (0-8); BASOPHILS PERCENT MAN 0 % (0-2); EOSINOPHILS ABSOLUTE MAN 0.09 K/mm3 (0.00-0.68); EOSINOPHILS PERCENT MAN 1 % (0-6); LYMPHOCYTES ABSOLUTE MAN 1.19 K/mm3 (0.84-5.20); LYMPHOCYTES PERCENT MAN 10 % (21-46); MONOCYTES ABSOLUTE MAN 0.39 K/mm3 (0.16-1.47); MONOCYTES PERCENT MAN 4 % (4-13); NEUTROPHILS ABSOLUTE MAN 8.27 K/mm3 (1.96-9.15); SEG NEUTROPHILS PERCENT MAN 81 % (41-73); TOTAL CELLS COUNTED 100
[2021-06-22 05:42] LABS: LYMPHOCYTES % ATYPICAL MANUAL 2 % (0-0)
--- NOTE | 2021-06-22 08:38 | NUR ---
CARE ASSUMED OF PT AT 0700. PT SITTING AT SIDE OF BED EATING BREAKFAST W/O COMPLAINTS. DENIES PAIN/SOB. AIRVO 50L, 55%, SATS >90%. PT ABLE TO SPEAK IN FULL SENTENCES W/O SOB. DR SOLO AT BEDSIDE THIS AM. CRACKLES TO BILAT BASES. LASIX GIVEN. VSS
--- NOTE | 2021-06-22 09:28 | NUR ---
DR LAGOS IN ROOM, FULL UPDATE GIVEN. FIO2 DECREASED TO 48%.
--- NOTE | 2021-06-22 11:53 | NUR ---
Patient is sitting on the EOB and alert. Because therapeutic alliance is already established patient immediately tells me about what is going on with him medically and emotionally. He talks about the mental miles and the frustrations he feels. We spend quite some time recounting all that he has overcome and how far he has come. We discuss all that he has going for him for the future, all that he is able to do and all the support that he has. I provide companionship, gentle prevocational/rehabilitation counselor and prayer. Patient responds well and displays evidence of being encouraged and having a greater resolve to continue in the doing all that he needs to do to move toward health and his previous life.
--- NOTE | 2021-06-22 17:55 | NUR ---
PT SPENT MOST OF THE SHIFT OOB IN CHAIR. FIO2 DECREASED TO 38%. VSS. PT W/O COMPLAINTS. FINE CRACKLES REMAIN IN TO BIALT BASES, IMPROVED FROM THIS AM.
--- NOTE | 2021-06-22 19:28 | NUR ---
ASSUMED CARE OF PT, REPORT RECEIVED. PT IS NOTED SITTING UP IN CHAIR AT BEDSIDE WITH PHONE IN HANDS. SATS CURRENTLY 91%, HEART RATE 80S, RESP RATE UPPER TEENS TO LOW 20S. DENIED NEEDS AT ROUNDS.
[2021-06-23 03:25] LABS: Hematocrit 29.5 % (37.0-53.0); Hemoglobin 9.1 g/dL (13.5-17.5); Mean Corpuscular HGB Conc 30.8 g/dL (31.5-36.5); Mean Corpuscular Volume 97 fL (80-100); Mean Platelet Volume 8.8 fL (9.1-12.4); Platelet Count 369 K/mm3 (150-400); RDW Coefficient Variation 15.3 % (11.7-14.2); RDW Standard Deviation 54.9 fL (35.1-46.3); Red Blood Cell Count 3.03 M/mm3 (4.30-5.90); White Blood Cell Count 12.37 K/mm3 (4.00-11.30)
[2021-06-23 03:39] LABS: Anion Gap 3 mmol/L (6-16); Blood Urea Nitrogen 26 mg/dL (8-24); Bun/Creatinine Ratio 40.4 (12.0-20.0); CO2, Blood 38 mmol/L (21-32); Chloride, Blood 102 mmol/L (98-108); Creatinine, Blood 0.64 mg/dL (0.60-1.20); Glomerular Filtration Rate >60 (60-); Glucose, Blood 107 mg/dL (70-99); Potassium, Blood 3.7 mmol/L (3.5-5.5); Sodium, Blood 143 mmol/L (136-145)
[2021-06-23 05:24] LABS: BAND PERCENT MAN 1 % (0-8); BASOPHILS ABSOLUTE MAN 0.37 K/mm3 (0.00-0.23); BASOPHILS PERCENT MAN 3 % (0-2); EOSINOPHILS PERCENT MAN 0 % (0-6); LYMPHOCYTES % ATYPICAL MANUAL 2 % (0-0); LYMPHOCYTES PERCENT MAN 15 % (21-46); MONOCYTES ABSOLUTE MAN 1.36 K/mm3 (0.16-1.47); MONOCYTES PERCENT MAN 11 % (4-13); NEUTROPHILS ABSOLUTE MAN 8.53 K/mm3 (1.96-9.15); SEG NEUTROPHILS PERCENT MAN 68 % (41-73); TOTAL CELLS COUNTED 100
--- NOTE | 2021-06-23 05:24 | NUR ---
PT REMAINED UP IN CHAIR AT BEDSIDE UNTIL NEAR MIDNOC THIS SHIFT. HAS TOLERATED TURNING/REPOSITIONING AND TRANSFERRING SELF WELL THROUGHOUT NOC. OXYGEN NEEDS WERE DECREASED PRIOR TO PT RETURNING TO BED, FOLLOWING WHICH TIME, HE REQUIRED RETURN TO 40 L/MIN AND FIO2 UP TO 57% VITAL SIGNS HAVE REMAINED STABLE THROUGHOUT NOC. RIGHT LOWER LOBE CONTINUES WITH CRACKLES PRESENT OTHERWISE CLEAR/DIM THROUGHOUT, RESP RATE HIGH TEENS LOW 20S AT REST, INCREASES WITH INCREASED ACTIVITY HOWEVER PT DOES RECOVER WITHIN 5 MINUTES.
--- NOTE | 2021-06-23 08:39 | NUR ---
CARE OF PT ASSUMED AT 0700. PT SBA UP TO CHAIR THIS AM, WEAK, UNSTEADY GAIT. PT DENIES COMPLAINTS, APPEARS SLIGHTLY ANXIOUS, CONCERNED ABOUT HEART RATE AND ALARMS IN OTHER ROOMS. FINE CRACKLES T/O WORSE IN BASES. DENIES PAIN. DENIES SOB. SOME SENTENCES ARE LABORED. RESP 20'S. AIRVO 40L/66%, WILL TITRATE DOWN TOLERATED
--- NOTE | 2021-06-23 16:17 | NUR ---
Patient is in good spirits at the time of my visit. He is excited to be with the PCU staff that has been so wonderful to him in the past visits. 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 He is optimistic but realizes he still has a long ways to go. He voices his appreciation to the community for all they have done to show support and love through these many months of illness and recovery. His prayer is for a full recovery and that even his drop foot would be restored to total health and so we pray together about this. Patient seems genuinely uplifted by the visit and voices appreciation for the time and care given. I will continue to remain available to patient and family.
--- NOTE | 2021-06-23 17:56 | NUR ---
PT SUMMARY: NO ACUTE CHANGE SINCE TRANSFER. TRANSFERRED FROM ICU 14 TO PCU 1 AROUND NOON, REPORT RECEIVED FROM AMINTA DANIEL, TRANSPORTED VIA WHEELCHAIR. ALERT AND ORIENTED, ARRIVED ON AIRVO 40L 45% SATTING ABOVE 95% THE REST OF THE VITALS STABLE. ALERT AND ORIENTED, SBA FOR TRANSFERS. ATE MEALS WITH NO ISSUES, NO STRAWS PER ORDER. PT WORKED WITH PT TODAY, NO ISSUES. WAS IN TO VISIT. NO OTHER ISSUES NOTED, CALLS APPROPRIATELY. PT UP IN THE CHAIR AT THIS TIME, PT NOW SWITCHED TO HI TAJ NASAL CANNULA TOLERATING 4L OF O2 SATS ABOVE 95%. WILL REPORT TO ONCOMING SHIFT
--- NOTE | 2021-06-24 06:03 | NUR ---
SHIFT SUMMARY: PATIENT DENIES SOB AND IS ON 5L NC. SLIGHTLY APNEIC WHEN SLEEPING - INCREASED TO 6L FOR A COUPLE HOURS WITH POSITIVE RESULTS. CURRENTLY AT 5L WITH SATS >94%. PATIENT STATED POWERGLIDE DOESN'T DRAW. POWERGLIDE WAS PUT IN ON 06/20. WORKED WITH DMITRI FROM LAB TO DRAW FROM POWERGLIDE, BUT IT DID NOT DRAW. PATIENT HAS CHEST X-RAY THIS AM. NO ADVERSE EVENTS THIS SHIFT. WILL CONTINUE TO MONITOR AND REPORT TO ONCOMING RN.
[2021-06-24 06:14] LABS: Anion Gap 2 mmol/L (6-16); Blood Urea Nitrogen 23 mg/dL (8-24); Bun/Creatinine Ratio 38.9 (12.0-20.0); CO2, Blood 39 mmol/L (21-32); Calcium, Blood 10.5 mg/dL (8.5-10.1); Chloride, Blood 101 mmol/L (98-108); Creatinine, Blood 0.59 mg/dL (0.60-1.20); Glomerular Filtration Rate >60 (60-); Glucose, Blood 84 mg/dL (70-99); Potassium, Blood 3.6 mmol/L (3.5-5.5); Sodium, Blood 142 mmol/L (136-145)
[2021-06-24 07:33] LABS: BASOPHILS ABSOLUTE AUTO 0.06 K/mm3 (0.00-0.23); BASOPHILS PERCENT AUTO 1 % (0-2); EOSINOPHILS ABSOLUTE AUTO 0.06 K/mm3 (0.00-0.68); EOSINOPHILS PERCENT AUTO 1 % (0-6); Hematocrit 30.5 % (37.0-53.0); Hemoglobin 9.3 g/dL (13.5-17.5); IMMATURE GRAN ABSOLUTE AUTO 0.15 K/mm3 (0.00-0.10); IMMATURE GRAN PERCENT AUTO 1 % (0-1); LYMPHOCYTES ABSOLUTE AUTO 3.59 K/mm3 (0.84-5.20); LYMPHOCYTES PERCENT AUTO 29 % (21-46); MONOCYTES PERCENT AUTO 7 % (4-13); Mean Corpuscular HGB 29.3 pg (26.0-34.0); Mean Corpuscular HGB Conc 30.5 g/dL (31.5-36.5); Mean Corpuscular Volume 96 fL (80-100); Mean Platelet Volume 8.5 fL (9.1-12.4); NEUTROPHILS ABSOLUTE AUTO 7.48 K/mm3 (1.96-9.15); NEUTROPHILS PERCENT AUTO 61 % (41-73); Platelet Count 421 K/mm3 (150-400); RDW Coefficient Variation 15.4 % (11.7-14.2); RDW Standard Deviation 54.7 fL (35.1-46.3); Red Blood Cell Count 3.17 M/mm3 (4.30-5.90); White Blood Cell Count 12.24 K/mm3 (4.00-11.30)
--- NOTE | 2021-06-24 17:36 | NUR ---
PT SUMMARY: PT REMAINS ON 5L OF O2 RANGING 4-6L WAS ON 6L WHEN SLEEPING, WAS TITRATED DOWN TO 4L THIS AM PT WAS NOT ABLE TO TOLERATE DESATS TO 85%. NO ISSUES WITH VITALS, HRR SINUS ARRHYTHMIA/SINUS RHYTHM 80-100'S, DENIES CHEST PAIN/PRESSURE. PT WORKED WITH THERAPY WITH NO ISSUES, STAND BY ASSISTS FOR TRANSFERS WAS UP IN THE CHAIR FOR MEALS. NO OTHER ISSUES REPORTED PT ABLE TO VERBALIZED NEEDS, CALLS APPROPRIATELY. USES URINAL TO VOID INDEPENDENTLY. WILL REPORT TO ONCOMING SHIFT
[2021-06-25 03:47] LABS: BASOPHILS ABSOLUTE AUTO 0.07 K/mm3 (0.00-0.23); BASOPHILS PERCENT AUTO 1 % (0-2); EOSINOPHILS ABSOLUTE AUTO 0.05 K/mm3 (0.00-0.68); EOSINOPHILS PERCENT AUTO 0 % (0-6); Hematocrit 31.9 % (37.0-53.0); Hemoglobin 9.8 g/dL (13.5-17.5); IMMATURE GRAN ABSOLUTE AUTO 0.23 K/mm3 (0.00-0.10); IMMATURE GRAN PERCENT AUTO 2 % (0-1); LYMPHOCYTES ABSOLUTE AUTO 3.98 K/mm3 (0.84-5.20); LYMPHOCYTES PERCENT AUTO 29 % (21-46); MONOCYTES ABSOLUTE AUTO 1.33 K/mm3 (0.16-1.47); MONOCYTES PERCENT AUTO 10 % (4-13); Mean Corpuscular HGB 29.6 pg (26.0-34.0); Mean Corpuscular HGB Conc 30.7 g/dL (31.5-36.5); Mean Corpuscular Volume 96 fL (80-100); Mean Platelet Volume 8.5 fL (9.1-12.4); NEUTROPHILS ABSOLUTE AUTO 8.01 K/mm3 (1.96-9.15); NEUTROPHILS PERCENT AUTO 59 % (41-73); NRBC ABSOLUTE 0.02 K/mm3 (0.00-0.02); NRBC Auto 0.1 /100 WBC (0.0-0.2); Platelet Count 442 K/mm3 (150-400); RDW Coefficient Variation 15.5 % (11.7-14.2); RDW Standard Deviation 54.4 fL (35.1-46.3); Red Blood Cell Count 3.31 M/mm3 (4.30-5.90); White Blood Cell Count 13.67 K/mm3 (4.00-11.30)
[2021-06-25 04:18] LABS: Anion Gap 4 mmol/L (6-16); Blood Urea Nitrogen 21 mg/dL (8-24); Bun/Creatinine Ratio 32.8 (12.0-20.0); CO2, Blood 38 mmol/L (21-32); Calcium, Blood 10.1 mg/dL (8.5-10.1); Chloride, Blood 101 mmol/L (98-108); Creatinine, Blood 0.64 mg/dL (0.60-1.20); Glomerular Filtration Rate >60 (60-); Glucose, Blood 89 mg/dL (70-99); Potassium, Blood 3.7 mmol/L (3.5-5.5); Sodium, Blood 143 mmol/L (136-145)
--- NOTE | 2021-06-25 05:39 | NUR ---
SHIFT SUMMARY NO ACUTE EVENTS THIS SHIFT. PT ALERT AND ORIENTED X4. SR 80'S. BP STABLE. MAINTAINING SATS OVER 93% ON 4L NC WHILE AWAKE AND 5L WHILE ASLEEP. LUNG SOUNDS CLEAR IN UPPER LOBES, CRACKLES IN BASES. CANNULA IN MOUTH WHILE SLEEPING. VOIDING INDEPENDENTLY WITH BEDSIDE URINAL. SBA FOR TRANSFERS. IN BED SLEEPING WITH CALL ALARM AT SIDE, WILL CONTINUE TO MONITOR UNTIL REPORT GIVEN
--- NOTE | 2021-06-25 10:48 | NUR ---
Because therapeutic alliance is already established, patient immediately shares about some family unit complications. We discuss the issues and ideas for possible resolution. We also talk about the effect of stress on recovery and the importance of not allowing the things/people that he can not control to become weight that he should not be carrying at this point in his recovery. We look at sources of peace and inspiration. I provide gentle counseling department chair and prayer. Patient responds well and shows signs of having clarity of direction and increased peace.
--- NOTE | 2021-06-25 17:18 | NUR ---
SHIFT SUMMARY PT ALERT AND ORIENTED X 4. HR STABLE. BP STABLE. OXYGEN SATURATION MAINTAINED ABOVE 92% ON 4-6 L OF OXYGEN VIA NC. PT SBA. NO CP OR PRESSURE REPORTED. PT WORKED WITH PT/OT DURING SHIFT. CURRENTLY AT BEDSIDE GIVING PT BATH PER PT REQUEST. PT UP IN CHAIR DURING SHIFT. WILL CONT TO MONITOR UNTIL REPORT GIVEN TO NIGHTSHIFT RN.
[2021-06-26 04:44] LABS: BASOPHILS ABSOLUTE AUTO 0.07 K/mm3 (0.00-0.23); BASOPHILS PERCENT AUTO 1 % (0-2); EOSINOPHILS ABSOLUTE AUTO 0.05 K/mm3 (0.00-0.68); EOSINOPHILS PERCENT AUTO 0 % (0-6); Hematocrit 32.4 % (37.0-53.0); Hemoglobin 9.8 g/dL (13.5-17.5); IMMATURE GRAN ABSOLUTE AUTO 0.16 K/mm3 (0.00-0.10); IMMATURE GRAN PERCENT AUTO 1 % (0-1); LYMPHOCYTES ABSOLUTE AUTO 3.73 K/mm3 (0.84-5.20); LYMPHOCYTES PERCENT AUTO 29 % (21-46); MONOCYTES ABSOLUTE AUTO 1.25 K/mm3 (0.16-1.47); MONOCYTES PERCENT AUTO 10 % (4-13); Mean Corpuscular HGB 29.5 pg (26.0-34.0); Mean Corpuscular HGB Conc 30.2 g/dL (31.5-36.5); Mean Corpuscular Volume 98 fL (80-100); Mean Platelet Volume 8.4 fL (9.1-12.4); NEUTROPHILS ABSOLUTE AUTO 7.64 K/mm3 (1.96-9.15); NEUTROPHILS PERCENT AUTO 59 % (41-73); NRBC ABSOLUTE 0.02 K/mm3 (0.00-0.02); NRBC Auto 0.2 /100 WBC (0.0-0.2); Platelet Count 437 K/mm3 (150-400); RDW Coefficient Variation 15.5 % (11.7-14.2); RDW Standard Deviation 54.4 fL (35.1-46.3); Red Blood Cell Count 3.32 M/mm3 (4.30-5.90)
[2021-06-26 05:04] LABS: Anion Gap 3 mmol/L (6-16); Blood Urea Nitrogen 21 mg/dL (8-24); Bun/Creatinine Ratio 34.6 (12.0-20.0); CO2, Blood 39 mmol/L (21-32); Calcium, Blood 9.8 mg/dL (8.5-10.1); Chloride, Blood 99 mmol/L (98-108); Creatinine, Blood 0.61 mg/dL (0.60-1.20); Glomerular Filtration Rate >60 (60-); Glucose, Blood 101 mg/dL (70-99); Potassium, Blood 3.2 mmol/L (3.5-5.5); Sodium, Blood 141 mmol/L (136-145)
--- NOTE | 2021-06-26 05:07 | NUR ---
SHIFT SUMMMARY PT ALERT AND ORIENTED X4. ON 5L NC AT NIGHT, MAINTAINING SATS OVER 93%. DESATS WHEN VOIDING. INDEPENDENT FOR ADLS. BP STABLE, HR STABLE. NO C/O PAIN OR DISCOMFORT. IN BED SLEEPING WITH CALL ALARM AT SIDE. WILL CONTINUE TO MONITOR UNTIL REPORT GIVEN TO DAYSHIFT RN
--- NOTE | 2021-06-26 09:24 | NUR ---
CARE ASSUMPTION PATIENT IS A/OX4. PATIENT REPORTS NO CHEST PAIN/PRESSURE, OR HEADACHE. PATIENT REPORTS NUMBNESS/TINGLING IN LEFT FOOT WHICH HE STATES IS NORMAL. PATIENT BECOMES SHORT OF BREATH WITH EXERTION. PATIENT CAN DO ADLS INDEPDENTLY AND CALLS WHEN TRANSFERING. VSS. BED IN LOWEST POSITION AND CALL LIGHT WITHIN REACH. WILL CONTINUE TO MONITOR AND PROVIDE CARE.
--- NOTE | 2021-06-26 14:27 | NUR ---
UPDATE PATIENT UP WORKING WITH BOTH OCCUPATIONAL THERAPY AND PHYSICAL THERAPY. PER PHYSICAL THERAPY PATIENT TO WALK 3 TIMES A DAY, LONG DISTANCE SUCH TO THE END OF THE HALLWAY, SINCE THEY WILL NOT BE ABLE TO WORK OVER THE WEEKEND.
--- NOTE | 2021-06-26 15:18 | NUR ---
MOVE TO SURG ROOM THIS RN GAVE REPORT TO NANI DANIEL ON SURGICAL FLOOR. ALL OF PATIENT BELONGINGS WERE GATHERED AND WENT WITH PATIENT TO NEW ROOM. PATIENT WENT VIA WHEELCHAIR AND ON 4L NC. PATIENT LEFT PCU APROX 1500.
--- NOTE | 2021-06-26 16:06 | NUR ---
TRANSFER: REPORT RECEIVED FROM [facility]AL CLERICAL PROOFREADER. PT TO UNIT AT ABOUT 1500, PT IS A/O ABLE TO TRANSFER FROM WHEELCHAIR WITH SBA. ON 4L 02 VIA NC, SP02 94%. HR 85, CONTINUIOUS OXIMETRY APPLIED. LUNGS ARE CLEAR WITH FINE CRACKLES AT L BASE, PT APPEARS TO HAVE SLIGHT SOB WITH ACTIVITY, BUT NONE WHILE AT REST. I.S. USE ENCOURAGED. NO DISTRESS NOTED. WILL CTM.
--- NOTE | 2021-06-26 18:14 | NUR ---
SUMMARY: NO CHANGE SINCE TRANSFER, A/O, VSS. PT SAT UP IN CHAIR FOR DINNER, AT BEDSIDE CURRENTLY. WILL REPORT TO CINTHYA RN.
--- NOTE | 2021-06-27 05:01 | NUR ---
SALESPERSON SHOES SUMMARY NO ACUTE CHANGES THIS SHIFT. PT AAOX4 AND INDEPENDENT IN ROOM. ON 4L O2 VIA NC WITH O2 SATS AVG 93-95%. PT DOES DESAT SLIGHTLY WHEN AMBULATING. OCCASIONAL NON PRODUCTIVE COUGH WITH SOME FINE CRACKLES NOTED IN BASES OF LUNGS. VSS, WILL CONTINUE TO MONITOR.
[2021-06-28 05:00] LABS: Albumin, Blood 3.5 g/dL (3.4-5.0); Anion Gap 3 mmol/L (6-16); Blood Urea Nitrogen 26 mg/dL (8-24); Bun/Creatinine Ratio 42.6 (12.0-20.0); CO2, Blood 37 mmol/L (21-32); Chloride, Blood 103 mmol/L (98-108); Creatinine, Blood 0.61 mg/dL (0.60-1.20); Glomerular Filtration Rate >60 (60-); Glucose, Blood 99 mg/dL (70-99); Magnesium, Blood 2.7 mg/dL (1.6-2.4); Phosphorus, Blood 3.7 mg/dL (2.5-4.9); Potassium, Blood 4.1 mmol/L (3.5-5.5); Sodium, Blood 143 mmol/L (136-145)
--- NOTE | 2021-06-28 05:14 | NUR ---
PT IS ALERT AND ORIENTED X4. DENIES PAIN. CRACKLES SOUND ON RIGHT POSTERIOR LUNG. SATS DROPPED TO 85% ON 4.5L. FOR A SHORT TIME O2 WAS INCREASED UP TO 6 LITERS; ONCE SATS WERE STABLE ABOVE 92, O2 WAS DECREASED TO 5 LITERS AND IT HAS KEPT IT FOR THE REST OF THE NIGHT; SATS FROM 90-94%. PT IS A MOUTH BREATHER. PT IS UP AD DOROTHY IN THE ROOM. VOIDING.
--- NOTE | 2021-06-28 17:54 | NUR ---
PT. SATS DROPPING TO 88-89% WITH COUGH OR ANY ACTIVITY. OXYGEN UP TO 5L PER NC AT THIS TIME. EATING DINNER AT THIS TIME AND SATS ARE 91% ON 5L. MOM IN ROOM VISITING. LUNGS ARE VERY DIMINSIHED IN THE RIGHT BASE, FINE CRACKLES HEARD LEFT. REMAINS ON 2L FLUID RESTRICTION AND IS COMPLIANT.
--- NOTE | 2021-06-28 18:22 | NUR ---
PATIENT DID VOID TODAY ON COMMODE > 500ML CLEAR YELLOW URINE.
--- NOTE | 2021-06-29 05:15 | NUR ---
PT IS ALERT AND ORIENTED X4. DENIES PAIN. SATS 90-92 ON 6 LITERS WHILE SLEEPING. LUNGS WITH CRACKLES MORE ON THE RIGHT POSTERIOS LUNG. AMBULATING AD DOROTHY. SKIN CDI.
[2021-06-29 05:41] LABS: Albumin, Blood 3.2 g/dL (3.4-5.0); Anion Gap 3 mmol/L (6-16); Blood Urea Nitrogen 31 mg/dL (8-24); Bun/Creatinine Ratio 46.8 (12.0-20.0); CO2, Blood 37 mmol/L (21-32); Calcium, Blood 9.4 mg/dL (8.5-10.1); Chloride, Blood 103 mmol/L (98-108); Creatinine, Blood 0.66 mg/dL (0.60-1.20); Glomerular Filtration Rate >60 (60-); Glucose, Blood 116 mg/dL (70-99); Magnesium, Blood 2.6 mg/dL (1.6-2.4); Phosphorus, Blood 3.9 mg/dL (2.5-4.9); Potassium, Blood 3.8 mmol/L (3.5-5.5); Sodium, Blood 143 mmol/L (136-145)
--- NOTE | 2021-06-29 13:11 | NUR ---
PT REQUESTED THAT THE DOCTOR CALL HIS TO PROVIDE AND UPDATE AND TO ANSWER QUESTIONS. DR. CHAUDHRY NOTIFIED OF REQUEST AND PROVIDED WITH DANETTE'S (PT'S ), PHONE NUMBER.
--- NOTE | 2021-06-29 15:28 | NUR ---
Upon receiving a referral from patient's RN Sylvia as a request from the patient for a visit from spiritual care, I visit patient. Patient immediately tells me about his family unit complications that escaladed over the weekend and this morning. Patient is clearly upset by it and so I provide therapeutic listening and give gentle advice that is mostly centered around the patient staying peaceful and finding ways to remain steady in his recovery. Patient eventually seems encouraged as we continue to look at gratitude minsets, stress reduction and being present in the moments that are given to us. I provide spiritual guidance and prayer as well which prove to be quite meaningful to patient according to what he expressed. I will continue to remain available to patient and family.
[2021-06-29] MEDS ORDERED: ALBU2.5V5 INH (16:23)
[2021-06-29] MEDS ORDERED: Flonase 0.05% N16 GM (16:23)
[2021-06-29] MEDS ORDERED: LASIX20 M2 PO (16:24)
[2021-06-29] MEDS ORDERED: VISBIOME 112.51 EACH PO (16:28)
[2021-06-29] MEDS ORDERED: Prednisone10 MG PO (16:28)
[2021-06-29] MEDS ORDERED: FURO40 PO (16:29)
[2021-06-29] MEDS ORDERED: SULTRIDS PO (16:29)
--- NOTE | 2021-06-29 17:58 | NUR ---
PRESCRIPTIONS FAXED TO [facility] AT [facility]. REQUESTED THAT MEDICATIONS BE FILLED TODAY SINCE PT IS DISCHARGING FROM THE HOSPITAL. ATTEMPTED TO CALL THE PHARMACY AND REQUEST TIMELY PRESCRIPTION FILL, UNABLE TO REACH PHARMACY STAFF OR LEAVE A MESSAGE. FAX CONFIRMATION RECEIVED. PT'S DANETTE WAS UPDATED REGARDING MEDICATIONS THAT HAVE BEEN GIVEN SO PRESCRIPTIONS CAN BE OBTAINED TOMORROW WHEN THE PHARMACY OPENS.
--- NOTE | 2021-06-29 18:52 | NUR ---
DISCHARGE PT AND SPOUSE PROVIDED WITH WRITTEN AND VERBAL DISCHARGE INSTRUCTIONS; THEY REPORTED UNDERSTANDING INSTRUCTIONS. PT WAS SENT HOME WITH PORTABLE OXYGEN AT 6L WHICH IS WHAT HE HAS BEEN USING WITH ACTIVITY. HIS O2 CONCENTRATOR WAS DELIVERED PRIOR TO PT DISCHARGE. PT AND HIS SPOUSE WERE GIVEN EDUCATION REGARDING HIS MEDICATIONS. PT'S REPORTS SHE WILL BE ABLE TO OBTAIN HIS PRESCRIPTIONS THIS EVENING SO SHE WILL HAVE THEM AT HOME. PT ESCORTED OUT IN W/C BY BERNARDO PRYOR.
== END 2021-06-29 18:38 | disposition home or self-care (01) | DRG 189 ==
LOC: ER 15:05 → ICUW 23:25 → ERHOLD 23:25 → ICUW 06-18 04:02 → PCU 06-23 11:59 → SURS 06-26 15:22
PROVIDERS: Family Medicine; Internal Medicine; Internal Medicine Critical Care Medicine; Physician Assistant; Student in an Organized Health Care Education/Training Program; ADMIT Internal Medicine
PROC: 5A0955A Assistance with Respiratory Ventilation, Greater than 96 Consecutive Hours, High Flow/Velocity Cannula (ICD-10-PCS; principal; 2021-06-18)
DX: J96.21 Acute and chronic respiratory failure with hypoxia (principal); J18.9 Pneumonia, unspecified organism; E87.2 Acidosis; Z20.822 Contact with and (suspected) exposure to COVID-19; U09.9 Post COVID-19 condition, unspecified; R00.0 Tachycardia, unspecified; E87.70 Fluid overload, unspecified; E66.01 Morbid (severe) obesity due to excess calories; Z68.39 Body mass index [BMI] 39.0-39.9, adult; K59.09 Other constipation; M21.371 Foot drop, right foot; F32.A Depression, unspecified; I49.5 Sick sinus syndrome; D64.9 Anemia, unspecified; Z79.899 Other long term (current) drug therapy; Z79.01 Long term (current) use of anticoagulants; Z95.0 Presence of cardiac pacemaker; Z86.718 Personal history of other venous thrombosis and embolism
CPT/HCPCS: 0241U; 36415; 71045; 71046; 71260; 80048; 80053; 80069; 80202; 82803; 83735; 83880; 84145; 84484; 85025; 85027; 87040; 87070; 87205; 93005; 93010; 93306; 94640; 94644; 94761; 94762; 96374; 97110; 97116; 97162; 97165; 97530; 97535; 99285-25; A9270; C1751; J0692; J0696; J1940; J3370; J7050; J7120; J7512; Q9967

== ENCOUNTER 2025-05-17 18:10 | Emergency (ER) | payer OTHER ==
[~2025-05-17] VITALS: Ht 172.7 cm; Wt 155.1 kg
[~2025-05-17 18:10] MED LIST changes: +DILT180 PO; +FURO40 PO; +Flonase 0.05% N16 GM; +LASIX20 M2 PO; +Prednisone10 MG PO; +SULTRIDS PO; +SYMBICORT 80-10.2 GM; +SYMBICORT 80-10.2 GM INH; +Tamiflu75 MG PO; +VISBIOME 112.51 EACH PO
[2025-05-17 18:53] LABS: BASOPHILS ABSOLUTE AUTO 0.05 K/mm3 (0.00-0.23); BASOPHILS PERCENT AUTO 1 % (0-2); EOSINOPHILS ABSOLUTE AUTO 0.21 K/mm3 (0.00-0.68); EOSINOPHILS PERCENT AUTO 2 % (0-6); Hematocrit 40.5 % (37.0-53.0); Hemoglobin 13.7 g/dL (13.5-17.5); IMMATURE GRAN ABSOLUTE AUTO 0.06 K/mm3 (0.00-0.10); IMMATURE GRAN PERCENT AUTO 1 % (0-1); LYMPHOCYTES ABSOLUTE AUTO 1.29 K/mm3 (0.84-5.20); LYMPHOCYTES PERCENT AUTO 14 % (21-46); MONOCYTES ABSOLUTE AUTO 1.36 K/mm3 (0.16-1.47); MONOCYTES PERCENT AUTO 14 % (4-13); Mean Corpuscular HGB Conc 33.8 g/dL (31.5-36.5); Mean Corpuscular Volume 91 fL (80-100); NEUTROPHILS ABSOLUTE AUTO 6.60 K/mm3 (1.96-9.15); NEUTROPHILS PERCENT AUTO 69 % (41-73); NRBC ABSOLUTE 0.00 K/mm3 (0.00-0.02); NRBC Auto 0.0 /100 WBC (0.0-0.2); Platelet Count 225 K/mm3 (150-400); RDW Coefficient Variation 13.0 % (11.7-14.2); RDW Standard Deviation 43.2 fL (35.1-46.3)
[2025-05-17 19:35] LABS: Alanine Aminotransfer (ALT/SGP 65.0 U/L (12-78); Albumin, Blood 3.2 g/dL (3.4-5.0); Albumin/Globulin Ratio 0.7 (0.8-1.8); Anion Gap 10.0 mmol/L (3-11); Aspartate Aminotrans (AST/SGOT 50.0 U/L (12-37); Bilirubin, Total 0.6 mg/dL (0.1-1.0); Blood Urea Nitrogen 13.0 mg/dL (8-24); CO2, Blood 25.0 mmol/L (21-32); Calcium, Blood 9.1 mg/dL (8.5-10.1); Chloride, Blood 100.0 mmol/L (98-108); Creatinine, Blood 0.78 mg/dL (0.60-1.20); Globulin, Blood 4.7 g/dL (2.2-4.0); Glucose, Blood 101.0 mg/dL (70-99); Potassium, Blood 3.6 mmol/L (3.5-5.5); Sodium, Blood 131.0 mmol/L (136-145); Total Protein, Blood 7.9 g/dL (6.4-8.2)
[2025-05-17] MEDS ORDERED: Clindamycin 600mg in D5W 50 ML IV ONE (20:30)
[2025-05-17 21:26] LABS: Source, Urine Clean Catch
[2025-05-17] MEDS ORDERED: CLIN300 PO (21:28)
[2025-05-17 21:30] VITALS: BP 122/84
[2025-05-17 21:33] LABS: Bilirubin, Urine Neg (Neg); Color, Urine Yellow (P-Yellow); Glucose Qualitative, Urine Neg (Neg); Ketones, Urine Neg (Neg); Leukocyte Esterase, Urine 3+ (Neg); Protein, Urine 2+ (Neg); Specific Gravity, Urine 1.010 (1.003-1.022); Urobilinogen, Urine NORM (Normal)
[2025-05-17 21:38] LABS: White Blood Cells, Urine TNTC /hpf (0-5)
== END 2025-05-17 21:54 | disposition home or self-care (01) ==
LOC: ER 18:10
PROVIDERS: Emergency Medicine
DX: N49.2 Inflammatory disorders of scrotum (principal); K40.90 Unilateral inguinal hernia, without obstruction or gangrene, not specified as recurrent; N39.0 Urinary tract infection, site not specified; Z79.01 Long term (current) use of anticoagulants; Z79.899 Other long term (current) drug therapy; Z95.0 Presence of cardiac pacemaker
CPT/HCPCS: 72193; 80053; 81001; 85025; 87086; 96365-59; 99284-25; Q9967